=== PATIENT | female | born 1940 | race Caucasian/White ===

== ENCOUNTER → 2016-06-02 | Outpatient (CLI) | payer BC ==
[~2016-06-02] MED LIST: CHOL100026 PO; CRAN200C PO; CYAN100020 PO; DONE1TAB25 PO; FURO-85 PO; IPRA1AER2 INH; LEVO88TA PO; LISI-729 PO; METO50TA7 PO; MTR500 PO; POTA1TAB PO; SIMV20TA2 PO; SYMIN160 INH; TIOTCAP INH; WARF-283 PO
--- NOTE | 2016-06-02 11:55 | DIAGNOSTIC IMAGING REPORT ---
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 COMPARISON STUDY: Chest CT scans dated 11/24/2015 and 12/27/2012. TECHNIQUE: CT scan of the thorax was performed from the thoracic inlet to the upper abdomen. Images are reviewed in the axial, sagittal, and coronal planes. IV contrast was not administered for this examination. CT DOSE: 695.89 mGycm FINDINGS: Thyroid: Imaged portions of the thyroid gland are normal in size and attenuation. Thoracic aorta: There is atherosclerotic calcification of the thoracic aorta, which is normal in caliber and demonstrates standard 3-vessel arch anatomy. Heart: The heart is top normal in size and without pericardial effusion. There is lipomatous hypertrophy of the interatrial septum. The coronary arteries and mitral annulus are calcified. The pulmonary trunk is dilated, measuring up to 3.3 cm in diameter. This is greater in caliber than the adjacent thoracic aorta and suggests pulmonary artery hypertension. Lungs and pleural spaces: There is emphysema. There are postoperative changes from right lower lobe resection, with volume loss in the right lung and compensatory hyperinflation of the left lung. No airspace consolidation is identified. There is no pleural effusion. There are scattered calcified granulomas. There are scattered (approximate 5) small pulmonary nodules seen throughout both lungs. The largest is at the left lung base and measures 4 mm is seen on axial image #220. These are likely unchanged from the 2013 examination. No new pulmonary nodules are clearly identified. The trachea and central airways our clear. Mediastinum: There is no mediastinal lymphadenopathy. Thea: Not well assessed without IV contrast. Axillae: There is no axillary lymphadenopathy. Upper abdomen: A small hiatal hernia is noted. Cholecystectomy clips are observed. There is mild central intrahepatic biliary ductal dilatation. A subcentimeter hypodensity in the right lobe of the liver on image #248 likely represents a cyst but is too small for definitive characterization. This is been present dating back to 2013. Renovascular calcifications are noted in the left upper pole. Skeletal structures: The skeletal structures are osteopenic. No lytic or blastic bony lesions are seen. There are healed right-sided rib fractures. IMPRESSION: 1. Emphysema and postoperative changes from right lower lobe resection as above. 2. There is no evidence of intrathoracic metastatic disease. 3. Scattered pulmonary nodules measuring up to 4 mm are likely unchanged dating back to 2013 and of low suspicion. Attention at follow-up is recommended. 4. There is no airspace consolidation or pleural effusion. 5. Additional changes as above. Electronically signed by: Hugh Zimmer M.D. 06/02/2016 11:54 AM Dictated Date/Time: 06/02/2016 11:47 AM
== END | disposition home or self-care (01) ==
LOC: C.CTS 10:38
PROVIDERS: ATTEND Internal Medicine Hematology
DX: C34.31 Malignant neoplasm of lower lobe, right bronchus or lung (principal); J43.9 Emphysema, unspecified; R91.8 Other nonspecific abnormal finding of lung field; Z90.2 Acquired absence of lung [part of]

== ENCOUNTER → 2016-06-09 | Outpatient (CLI) | payer BC ==
[2016-06-09 11:46] LABS: BLOOD UREA NITROGEN 15 mg/dl (7-18)
== END | disposition home or self-care (01) ==
LOC: C.LAB1850 10:12
PROVIDERS: ATTEND Psychiatry & Neurology Psychiatry
DX: Z79.899 Other long term (current) drug therapy (principal); I87.2 Venous insufficiency (chronic) (peripheral)

== ENCOUNTER → 2016-06-28 | Outpatient (CLI) | payer BC | END | disposition home or self-care (01) | LOC: C.LABSPEC 16:40 | PROVIDERS: ATTEND Nurse Practitioner Family | DX: N39.0 Urinary tract infection, site not specified (principal) ==

== ENCOUNTER → 2016-08-04 | Outpatient (CLI) | payer BC ==
[2016-08-04 10:06] LABS: BASO % 0.7 %; BASO ABS # 0.05 K/uL (0-0.2); COMPLETE YES; EOS % 1.6 %; HEMATOCRIT 37.9 % (37-47); IG% 0.1 %; LYMPH % 29.8 %; LYMPH ABS # 2.29 K/uL (1.2-3.4); MEAN CELL VOLUME 93.3 fL (80-100); MEAN CORPUSCULAR HEMOGLOBIN 30.3 pg (25-34); MEAN CORPUSCULAR HGB CONC 32.5 g/dl (32-36); MEAN PLATELET VOLUME 11.4 fL (7.4-10.4); MONO % 7.7 %; NEUT % 60.1 %; PLATELET COUNT 222 K/uL (130-400); RED BLOOD COUNT 4.06 M/uL (4.2-5.4); WHITE BLOOD COUNT 7.69 K/uL (4.8-10.8)
[2016-08-04 10:45] LABS: ALT/SGPT 27 U/L (12-78); AST/SGOT 28 U/L (15-37); BLOOD UREA NITROGEN 12 mg/dl (7-18); BUN/CREATININE RATIO 9.7 (10-20); CALCIUM 9.1 mg/dl (8.5-10.1); CARBON DIOXIDE 30 mmol/L (21-32); CHLORIDE 105 mmol/L (98-107); GLUCOSE 108 mg/dl (70-99); POTASSIUM 3.7 mmol/L (3.5-5.1); SODIUM 141 mmol/L (136-145)
[2016-08-04 10:55] LABS: RATIO 56.4 mcg/mg (0-30.0)
[2016-08-04 10:56] LABS: ALB/GLOB RATIO 0.8 (0.9-2); ALKALINE PHOSPHATASE 101 U/L (45-117); CHOLESTEROL 129 mg/dl (0-200); CHOLESTEROL/HDL RATIO 2.4; HDL CHOLESTEROL 54 mg/dl; LDL CHOLESTEROL CALCULATED 35 mg/dl; TRIGLYCERIDES 198 mg/dl (0-150); VERY LOW DENSITY LIPOPROT CALC 40 mg/dl
[2016-08-04 11:23] LABS: ESTIMATED AVERAGE GLUCOSE 128 mg/dl; HA1C FLAG Normal (Normal)
== END | disposition home or self-care (01) ==
LOC: C.LAB1850 08:54
PROVIDERS: ATTEND Internal Medicine
DX: I10 Essential (primary) hypertension (principal); D64.9 Anemia, unspecified; E78.00 Pure hypercholesterolemia, unspecified; E03.9 Hypothyroidism, unspecified; E55.9 Vitamin D deficiency, unspecified; R73.09 Other abnormal glucose; I87.2 Venous insufficiency (chronic) (peripheral)

== ENCOUNTER → 2016-10-26 | Outpatient (CLI) | payer BC ==
--- NOTE | 2016-10-26 13:15 | DIAGNOSTIC IMAGING REPORT ---
(CHEST) THORAX WITHOUT HISTORY:77 [id number] Adenocarcinoma of lungC34.30 Malignant neoplasm of lower. History of prior right lower lobectomy. COMPARISON: Chest CT 06/02/2016, PET CT 11/27/2014, 01/10/2013. TECHNIQUE: Multiple axial CT images of the chest were obtained without IV contrast. FINDINGS: Thyroid is noted within the anterior mediastinum and is enlarged patible with thyroid goiter. No dominant nodule identified. No pathologic adenopathy of the chest identified. Heart is normal in size with coronary arterial calcifications. There is moderate atherosclerotic plaquing of the aorta and its branches. Moderate upper lobe predominant centrilobular emphysematous changes are present. Prior right lower lobectomy. There are several scattered noncalcified pulmonary nodules throughout the bilateral lungs in a multilobar distribution, largest of which measures 5 mm within the left lower lobe seen on image 48 of the axial series. The central airways are patent. Most of these appear stable dating back to 2012, however the 5 mm noncalcified pulmonary nodule as discussed appears unchanged dating back to 07/09/2015. Prior cholecystectomy. Soft tissues are unremarkable. No suspicious lytic or blastic bony lesions are seen. IMPRESSION: 1. Evidence of prior right lower lobectomy without evidence of local disease recurrence or metastasis. No pathologic appearing adenopathy. 2. Upper lobe predominant emphysema. 3. Scattered noncalcified pulmonary nodules are again seen, largest of which measures 5 mm within the left lower lobe, stable from 07/09/2015. Attention at follow-up recommended. Please refer to below summary of Fleischner criteria recommendations for follow-up of incidental CT nodules (Jay Umana, Guidelines for management of small pulmonary nodules detected on CT scans: A statement from the Fleischner Society, Radiology 237: [phone].) SOLID NODULES Solitary nodule size: <6 mm * Low risk patients: no follow-up needed * high risk patients: optional CT at 12 months Solitary nodule size: 6-8 mm * Low risk patients: follow-up at 6-12 months, then consider further follow-up at 18-24 months * high risk patients: initial follow-up CT at 6-12 months and then at 18-24 months if no change Solitary nodule size: >8 mm * either low or high risk patients - consider follow-up CT at 3 months, and/or CT-PET, and/or biopsy Multiple nodules size: <6 mm * Low risk patients: no routine follow-up * high risk patients: optional CT at 12 months Multiple nodules size: 6-8 mm * Low risk patients: follow-up at 3-6 months, then consider further follow-up at 18-24 months * high risk patients: follow-up at 3-6 months, then at 18-24 months if no change Multiple nodules size: >8 mm * Low risk patients: follow-up at 3-6 months, then consider further follow-up at 18-24 months * high risk patients: follow-up at 3-6 months, then at 18-24 months if no change Note: newly detected indeterminate nodule in persons 35 years of age or older. * Low risk patients: minimal or absent history of smoking and/or other known risk factors * high risk patients: history of smoking or of other known risk factors (e.g. first degree relative with lung cancer, or exposure to asbestos, radon, uranium) * if a nodule up to 8 mm is partly solid or is ground glass further follow-up is required after 24 months to exclude possible slow growing adenocarcinoma ([place]) SUBSOLID NODULES Solitary pure ground-glass nodule * nodule size <6 mm - no CT follow-up required * nodule size >=6 mm - follow-up CT at 6-12 months, then every 2 years until 5 years Solitary part-solid nodule * nodule size <6 mm - no CT follow-up required * nodule size >=6 mm - follow-up CT at 3-6 months. If unchanged, and solid component remains <6 mm, then annual follow-up for 5 years Multiple subsolid nodules * nodule size <6 mm - follow-up CT at 3-6 months, consider further follow-up at 2 and 4 years if stable * nodule size >=6 mm - follow-up CT at 3-6 months, subsequent management based on the most suspicious nodule(s) The above report was generated using voice recognition software. It may contain grammatical, syntax or spelling errors. Electronically signed by: Sylvester Michael M.D. 10/26/2016 1:13 PM Dictated Date/Time: 10/26/2016 1:05 PM
== END | disposition home or self-care (01) ==
LOC: C.CTS 10:31
PROVIDERS: ATTEND Internal Medicine Pulmonary Disease
DX: C34.30 Malignant neoplasm of lower lobe, unspecified bronchus or lung (principal); J43.9 Emphysema, unspecified; R91.8 Other nonspecific abnormal finding of lung field; Z90.2 Acquired absence of lung [part of]

== ENCOUNTER → 2016-11-15 | Outpatient (CLI) | payer BC ==
--- NOTE | 2016-11-15 14:05 | MAMMOGRAPHY REPORT ---
BILATERAL DIGITAL SCREENING MAMMOGRAM WITH CAD: 11/15/2016 CLINICAL HISTORY: Routine screening. Patient has no complaints. TECHNIQUE: Bilateral CC, MLO and repeat right MLO views were obtained. Current study was also evalua justin with a Computer Aided Detection (CAD) system. COMPARISON: Comparison is made to exams dated: 11/13/2015 mammogram, 11/11/2014 mammogram, 10/16/2013 ma mmogram, 03/07/2012 mammogram - [facility], 07/28/2007, and 07/28/2007. BREAST COMPOSITION: There are scattered areas of fibroglandular density in both breasts. FINDINGS: There are scattered round and punctate microcalcifications in both breasts, stable compared to prior mammograms. Stable asymmetry in the lateral left breast. No new suspicious mass, architec tural distortion or cluster of microcalcifications is seen. IMPRESSION: ACR BI-RADS CATEGORY 1: NEGATIVE There is no mammographic evidence of malignancy. A 1 year screening mammogram is recommended. The pa tient will receive written notification of the results. Approximately 10% of breast cancers are not detected with mammography. A negative mammographic report should not delay biopsy if a clinically suggestive mass is present. Gabriella Varela M.D. ay/:11/15/2016 10:38:38 Coal Getter: Tiana BARRY)(Stu), [facility] letter sent: Normal 1/2 BI-RADS Code: ACR BI-RADS Category 1: Negative
== END | disposition home or self-care (01) ==
LOC: C.MAMM 09:52
PROVIDERS: ATTEND Internal Medicine
DX: Z12.31 Encounter for screening mammogram for malignant neoplasm of breast (principal)

== ENCOUNTER → 2017-01-19 | Outpatient (CLI) | payer BC ==
--- NOTE | 2017-01-19 12:46 | DIAGNOSTIC IMAGING REPORT ---
RIGHT KNEE 2 VIEWS, LEFT KNEE 2 VIEWS HISTORY: BILATERAL KNEE PAIN COMPARISON: None. FINDINGS: There is no fracture or dislocation. No soft tissue swelling. No significant knee effusions. Mild vascular calcifications. Severe cartilage space narrowing within the medial compartments of the bilateral knees. Mild to moderate osteoarthritis within the bilateral patellofemoral compartments. There is mild cartilage space narrowing and marginal osteophytes within the lateral compartment. No radiopaque foreign bodies. IMPRESSION: Bilateral tricompartmental osteoarthritis most severe within the medial compartments. Electronically signed by: Dada Valiente M.D. 01/19/2017 12:45 PM Dictated Date/Time: 01/19/2017 12:43 PM
== END | disposition home or self-care (01) ==
LOC: C.RAD1850 11:39
PROVIDERS: ATTEND Internal Medicine
DX: M17.0 Bilateral primary osteoarthritis of knee (principal)

== ENCOUNTER → 2017-06-02 | Outpatient (CLI) | payer BC ==
[~2017-06-02] MED LIST changes: -METO50TA7 PO; +METO50TA8 PO
--- NOTE | 2017-06-02 11:36 | DIAGNOSTIC IMAGING REPORT ---
CT OF THE CHEST WITHOUT IV CONTRAST CLINICAL HISTORY: Right lower lobe adenocarcinoma status post lobectomy. COMPARISON STUDY: Chest CT October 26, 2016 and December 27, 2012 and PET/CT November 27, 2014. CT DOSE: 775.73 mGy.cm TECHNIQUE: Axial images of the chest were obtained without IV contrast. Images were reviewed in the axial, sagittal, and coronal planes. IV contrast was not administered for this examination. A dose lowering technique was utilized adhering to the principles of ALARA. FINDINGS: No enlarged axillary, mediastinal or hilar lymph nodes are present. There is moderate coronary artery calcification. Heart is mildly enlarged. There is no pericardial effusion. There is fatty hypertrophy of the interatrial septum. No pneumothorax or pleural effusion is noted. There are stable postoperative findings consistent with a right lower lobectomy. Multiple pulmonary nodules are unchanged from CT of December 27, 2012. These are benign given stability. No new nodules are identified. There is moderate emphysema. No suspicious osseous lesion is present. A few subcentimeter hepatic lesions are unchanged and likely reflect cysts. The gallbladder is surgically absent. There is a splenule. Infrarenal abdominal aorta measures 3.2 cm. This is unchanged. IMPRESSION: 1. No evidence of recurrent malignancy within the chest status post right lower lobectomy. 2. Moderate coronary artery calcification. Mild cardiomegaly. 3. Moderate emphysema. Electronically signed by: Scott Obregon M.D. 06/02/2017 11:34 AM Dictated Date/Time: 06/02/2017 11:23 AM
== END | disposition home or self-care (01) ==
LOC: C.CTS 10:31
PROVIDERS: ATTEND Internal Medicine Hematology
DX: J43.9 Emphysema, unspecified (principal); I25.10 Atherosclerotic heart disease of native coronary artery without angina pectoris; Z90.2 Acquired absence of lung [part of]

== ENCOUNTER → 2017-07-28 | Outpatient (CLI) | payer BC ==
[2017-07-28 12:29] LABS: BASO % 0.6 %; BASO ABS # 0.05 K/uL (0-0.2); EOS % 1.8 %; EOS ABS # 0.16 K/uL (0-0.5); HEMATOCRIT 40.4 % (37-47); HEMOGLOBIN 13.1 g/dL (12.0-16.0); IG# 0.01 K/uL (0.00-0.02); LYMPH % 29.1 %; LYMPH ABS # 2.56 K/uL (1.2-3.4); MEAN CELL VOLUME 92.2 fL (80-100); MEAN CORPUSCULAR HEMOGLOBIN 29.9 pg (25-34); MEAN CORPUSCULAR HGB CONC 32.4 g/dl (32-36); MEAN PLATELET VOLUME 11.3 fL (7.4-10.4); MONO % 5.9 %; MONO ABS # 0.52 K/uL (0.11-0.59); NEUT % 62.5 %; NEUT ABS # 5.49 K/uL (1.4-6.5); PLATELET COUNT 262 K/uL (130-400); RED CELL DISTRIBUTION WIDTH CV 13.7 % (11.5-14.5); RED CELL DISTRIBUTION WIDTH SD 46.6 fL (36.4-46.3); WHITE BLOOD COUNT 8.79 K/uL (4.8-10.8)
[2017-07-28 12:42] LABS: ALBUMIN 3.5 gm/dl (3.4-5.0); ALT/SGPT 31 U/L (12-78); AST/SGOT 29 U/L (15-37); BLOOD UREA NITROGEN 13 mg/dl (7-18); CALCIUM 9.4 mg/dl (8.5-10.1); CARBON DIOXIDE 24 mmol/L (21-32); CREATININE 1.36 mg/dl (0.60-1.20); GLUCOSE 112 mg/dl (70-99); POTASSIUM 3.9 mmol/L (3.5-5.1); SODIUM 136 mmol/L (136-145)
[2017-07-28 12:46] LABS: HEMOGLOBIN A1C 6.1 % (4.5-5.6)
[2017-07-28 12:53] LABS: ALKALINE PHOSPHATASE 97 U/L (45-117); CHOLESTEROL 182 mg/dl (0-200); LDL CHOLESTEROL CALCULATED 88 mg/dl; TOTAL PROTEIN 8.2 gm/dl (6.4-8.2)
[2017-07-28 14:07] LABS: CREATININE RANDOM URINE 37.3 mg/dl
== END | disposition home or self-care (01) ==
LOC: C.LAB 09:46
PROVIDERS: ATTEND Internal Medicine
DX: E78.00 Pure hypercholesterolemia, unspecified (principal); I10 Essential (primary) hypertension; E03.9 Hypothyroidism, unspecified; E55.9 Vitamin D deficiency, unspecified; R41.89 Other symptoms and signs involving cognitive functions and awareness; R73.09 Other abnormal glucose; D64.9 Anemia, unspecified; N39.0 Urinary tract infection, site not specified

== ENCOUNTER → 2017-08-18 | Outpatient (CLI) | payer BC ==
[2017-08-18 10:06] LABS: BASO % 1.1 %; BASO ABS # 0.08 K/uL (0-0.2); EOS % 2.1 %; EOS ABS # 0.15 K/uL (0-0.5); HEMATOCRIT 38.5 % (37-47); IG# 0.01 K/uL (0.00-0.02); LYMPH % 29.5 %; LYMPH ABS # 2.07 K/uL (1.2-3.4); MEAN CELL VOLUME 91.2 fL (80-100); MEAN CORPUSCULAR HEMOGLOBIN 30.8 pg (25-34); MEAN CORPUSCULAR HGB CONC 33.8 g/dl (32-36); MEAN PLATELET VOLUME 11.1 fL (7.4-10.4); MONO % 8.3 %; MONO ABS # 0.58 K/uL (0.11-0.59); NEUT % 58.9 %; NEUT ABS # 4.13 K/uL (1.4-6.5); PLATELET COUNT 241 K/uL (130-400); RED CELL DISTRIBUTION WIDTH CV 13.6 % (11.5-14.5); RED CELL DISTRIBUTION WIDTH SD 45.3 fL (36.4-46.3); WHITE BLOOD COUNT 7.02 K/uL (4.8-10.8)
[2017-08-18 10:30] LABS: ALBUMIN 3.4 gm/dl (3.4-5.0); ALT/SGPT 26 U/L (12-78); AST/SGOT 23 U/L (15-37); BLOOD UREA NITROGEN 18 mg/dl (7-18); CALCIUM 9.2 mg/dl (8.5-10.1); CARBON DIOXIDE 28 mmol/L (21-32); CREATININE 1.28 mg/dl (0.60-1.20); GLUCOSE 103 mg/dl (70-99); SODIUM 138 mmol/L (136-145)
[2017-08-18 10:32] LABS: HEMOGLOBIN A1C 5.9 % (4.5-5.6)
[2017-08-18 10:41] LABS: ALKALINE PHOSPHATASE 98 U/L (45-117); TOTAL PROTEIN 7.7 gm/dl (6.4-8.2)
--- NOTE | 2017-08-26 06:07 | CODING QUERY NO DIAGNOSIS ---
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 Please assist us with providing a diagnosis/symptom for the test(s) below: A diagnosis/symptom was not documented on your Order. A valid diagnosis/symptom is required to bill all insurances. Please remember that we are unable to code a diagnosis of rule out, probable, possible, questionable, or suspected. Tests that require a diagnosis: * LITHIUM LEVEL DIAGNOSIS: * CBC WITH DIFF DIAGNOSIS: * CMP DIAGNOSIS: * LFT DIAGNOSIS: * UA DIAGNOSIS: * TSH DIAGNOSIS: * B12 FOLATE DIAGNOSIS: * HBA1C DIAGNOSIS: * DOS: 08/18/17 Provider Signature: Date: Thank you Jing Alexandra Health Information Management Once completed, please kindly fax back to [phone] For questions please call [phone]
== END | disposition home or self-care (01) ==
LOC: C.LAB1850 09:24
PROVIDERS: ATTEND Psychiatry & Neurology Psychiatry
DX: F31.12 Bipolar disorder, current episode manic without psychotic features, moderate (principal); F02.80 Dementia in other diseases classified elsewhere, unspecified severity, without behavioral disturbance, psychotic disturbance, mood disturbance, and anxiety

== ENCOUNTER → 2017-11-25 | Outpatient (CLI) | payer BC ==
--- NOTE | 2017-11-25 09:11 | DIAGNOSTIC IMAGING REPORT ---
(CHEST) THORAX WITHOUT CT DOSE: 643.00 mGy.cm HISTORY: Neoplasm postoperative evaluation TECHNIQUE: Multiaxial CT images of the chest were performed without contrast. A dose lowering technique was utilized adhering to the principles of ALARA. COMPARISON: 06/02/2017 FINDINGS: Postoperative changes consistent with a right lower lobectomy unchanged. Small nodule left lung base unaltered. Lungs otherwise appear clear. No significant mediastinal or hilar adenopathy. Prior cholecystectomy. IMPRESSION: Stable, unchanged CT of the chest compared to the prior exam. The above report was generated using voice recognition software. It may contain grammatical, syntax or spelling errors. Electronically signed by: Wagner Quinones M.D. 11/25/2017 9:10 AM Dictated Date/Time: 11/25/2017 9:06 AM
== END | disposition home or self-care (01) ==
LOC: C.CTS 08:52
PROVIDERS: ATTEND Internal Medicine Hematology
DX: C34.31 Malignant neoplasm of lower lobe, right bronchus or lung (principal)

== ENCOUNTER 2018-07-05 06:16 | Inpatient (IN) ==
--- NOTE | 2018-05-22 09:16 | PAT Medication Instructions ---
Medication Instructions Date of Service May 22, 2018 Home Medications cholecalciferol (vitamin D3) 2,000 unit PO QAM donepezil 5 mg PO QAM levothyroxine [Synthroid] 88 mcg PO QAM lisinopril 5 mg PO QAM lithium carbonate 300 mg PO QHS methenamine hippurate 1 g PO QPM metoprolol succinate 50 mg PO QAM potassium chloride 20 meq PO QAM simvastatin 20 mg PO QAM warfarin 4 mg PO HS Continue as directed warfarin 4 mg PO HS DO NOT take the morning of surgery potassium chloride 20 meq PO QAM lisinopril 5 mg PO QAM cholecalciferol (vitamin D3) 2,000 unit PO QAM Take morning of surgery With a small sip of water, OTHERWISE NOTHING TO EAT OR DRINK AFTER MIDNIGHT: simvastatin 20 mg PO QAM metoprolol succinate 50 mg PO QAM levothyroxine [Synthroid] 88 mcg PO QAM donepezil 5 mg PO QAM Take evening before surgery methenamine hippurate 1 g PO QPM lithium carbonate 300 mg PO QHS Other Notes If you have any questions please call us at [phone] or [phone] or [phone] or [phone]
--- NOTE | 2018-05-22 12:27 | Anesthesiology Consultation ---
Date of Service May 22, 2018 Assessment & Plan (1) Encounter for pre-operative examination: Chart Review Chart Review: Pending: Refer to Additional Notes / Consult section and Patient seen in Pre Admission Testing Consults Requested medical (Dr. Toribio (05/22)) Teaching & Discussion Pre-Anesthesia Teaching/Discussion Notes: Instructed NPO after midnight before surgery, except medications with 15 cc of water. Medication instructions provided according to the PAT guidelines. History Surgery Operation Date: 06/14/18 10:40 Proposed Procedures p Left Total Knee Arthroplasty - Mohinder Boyle MD Height/Weight Height: 5 ft 4 in Weight: 99.2 kg Allergies Allergy/AdvReac Type Severity Reaction Status Date / Time Penicillins Allergy Severe THROAT Verified 05/19/18 10:35 SWELLING Sulfa (Sulfonamide Allergy Severe "PAINS IN Verified 05/19/18 10:35 Antibiotics) MY HEART" Medications Home Medications Medication Instructions Recorded Confirmed Last Taken cholecalciferol (vitamin D3) 2,000 unit PO QAM 04/07/18 05/19/18 Unknown [Vitamin D3] donepezil 5 mg PO QAM 04/07/18 05/19/18 Unknown levothyroxine [Synthroid] 88 mcg PO QAM 04/07/18 05/19/18 Unknown lisinopril 5 mg PO QAM 04/07/18 05/19/18 Unknown lithium carbonate 300 mg PO QAM 04/07/18 05/19/18 Unknown methenamine hippurate 1 g PO QPM 04/07/18 05/19/18 Unknown metoprolol succinate 50 mg PO QAM 04/07/18 05/19/18 Unknown potassium chloride 20 meq PO QAM 04/07/18 05/19/18 Unknown simvastatin 20 mg PO QAM 04/07/18 05/19/18 Unknown warfarin 4 mg PO HS 04/07/18 05/19/18 Unknown Past Medical History Medical History Bipolar disorder (Chronic 11/11/12) Non-small cell carcinoma of lung (Acute) TUMOR EXCISION, NO CHEMO REQUIRED [facility] Atrial flutter (Acute) HX OF A-FLUTTER. PT HAD CARDIOVERSION [address] JACOBO. REMAINS STABLE. Bradycardia (Acute) C. difficile colitis (Acute) PT UNSURE OF EXACT DATE. DX AND TREATED AT [facility]. NO COMPLICATIONS SINCE Hypothyroidism (Acute) Sepsis secondary to UTI (Acute) MAR 2018, [facility]. RESOLVED Asthma MILD Chronic kidney disease STAGE 3 History of DVT (deep vein thrombosis) 1ST ONE 40 YEARS AGO AFTER CHILDBIRTH, 2ND DVT FOLLOWING EXTENDED BED REST APPROX 10 YEARS AGO Past Surgical History Surgical History H/O varicose vein stripping BILATERAL LOWER EXTREMITIES History of cardioversion History of lung surgery TUMOR EXCISION, NO CHEMO REQUIRED. PT UNSURE OF DATE OF TYPE OF SURGERY History of partial hysterectomy History of phacoemulsification of cataract of both eyes with intraocular lens implantation Hx of cholecystectomy Past Anesthesia History No Hx of Anesthesia Complications and No Family Hx of Anesthesia Complications History of PONV No Motion Sickness Screening History of Motion Sickness: No Social History Smoking Status: Former smoker tobacco type: cigarettes Smoking cigarettes per day: QUIT 20 YEARS AGO Do You Dip or Chew Tobacco: No Hx Alcohol Use: No Hx Substance Use: No substance use type: does not use Exercise / Class Metabolic Activity III < 4 Walking/Shop/Light housework (Can barely climb FOS. Denies CP. Occasional SOB, but blames on weight.) Review of Systems Patient denies chest pain, reflux, cough, wheezing, palpitations. +SOB/MONTES (blames on weight) +joint pain (knee) Physical Exam Vital Signs BP: 120/70 P: 63 R: 14 T: 98.2 SPO2: 96% on RA Constitutional + obese ENMT Thyromental Distance: < 3.5 Finger Breadths (3) Mallampati Class: II Neck normal visual inspection, trachea midline and + thick neck Respiratory normal respiratory effort Auscultation: lungs clear to auscultation bilaterally Cardiovascular Rate/Rhythm: regular rate and regular rhythm Heart Sounds: no murmur Vessels: no carotid bruit Neurologic moves all extremities Psychiatric Orientation: alert and oriented x 3 Testing Electrocardiogram Date: 05/22/18 Findings: + NSR @ (69) and + pertinent finding (Ectopic atrial pacemaker.) Chest X-Ray Date: 05/22/18 Findings: + NAD Laboratory Results 05/22/18 13:58 Blood Type O Positive 05/22/18 13:58 Antibody Screen NEGATIVE 05/22/18 13:58 PT 16.9 Seconds (9.0-12.0) H 05/22/18 13:58 INR 1.7 (0.9-1.1) H 05/22/18 13:58 APTT 30.6 Seconds (21.0-31.0) 05/22/18 13:58 Urine Color Yellow 05/22/18 13:58 Urine Appearance Clear (Clear) 05/22/18 13:58 Urine pH 5.5 (4.5-7.5) 05/22/18 13:58 Ur Specific [place] 1.010 (1.000-1.030) 05/22/18 13:58 Urine Protein Negative (Negative) 05/22/18 13:58 Urine Glucose (UA) Negative (Negative) 05/22/18 13:58 Urine Ketones Negative (Negative) 05/22/18 13:58 Urine Nitrite Negative (Negative) 05/22/18 13:58 Ur Leukocyte Esterase Negative (Negative) 05/22/18 13:58 Urine WBC (Auto) 1-5 /hpf (0-5) 05/22/18 13:58 Urine RBC (Auto) 0-4 /hpf (0-4) 05/22/18 13:58 U Hyaline Cast (Auto) 1-5 /lpf (0-5) 05/22/18 13:58 U Epithel Cells (Auto) >30 /lpf (0-5) H 05/22/18 13:58 Urine Bacteria (Auto) 1+ (Negative) H 05/22/18 13:58
--- NOTE | 2018-05-22 14:25 | XRay Report ---
XR chest Pre-admission PA/Lat CLINICAL HISTORY: pat preoperative evaluation COMPARISON STUDY: 04/07/2018 FINDINGS: The bones soft tissues and hemidiaphragms are normal. The cardiomediastinal silhouette is n ormal. The lungs are clear. The pulmonary vasculature is normal. IMPRESSION: Negative chest. The above report was generated using voice recognition software. It may contain grammatical, syntax or spelling errors. Electronically signed by: Wagner Quinones M.D. 05/22/2018 2:24 PM
[2018-05-22 14:55] LABS: Basophils # (auto) 0.07 K/uL (0-0.2); Basophils % (auto) 0.8 %; Eosinophils # (auto) 0.13 K/uL (0-0.5); Eosinophils % (auto) 1.5 %; Hematocrit (blood only) 39.7 % (37-47); Hemoglobin 13.1 g/dL (12.0-16.0); Immature Granulocytes # (auto) 0.01 K/uL (0.00-0.02); Immature Granulocytes % (auto) 0.1 %; Lymphocytes # (auto) 2.63 K/uL (1.2-3.4); Lymphocytes % (auto) 30.5 %; Mean Corpuscular Volume 94.5 fL (80-100); Mean Platelet Volume 11.3 fL (7.4-10.4); Monocytes # (auto) 0.57 K/uL (0.11-0.59); Monocytes % (auto) 6.6 %; Neutrophils % (auto) 60.5 %; Platelet Count 237 K/uL (130-400); RDW Coefficient of Variation 13.5 % (11.5-14.5); RDW Standard Deviation 46.5 fL (36.4-46.3); White Blood Count 8.61 K/uL (4.8-10.8)
[2018-05-22 14:58] LABS: Appearance Urine Clear (Clear); Bacteria Urine Automated 1+ (Negative); Bilirubin Urine Negative (Negative); Blood Urine Trace (Negative); Color Urine Yellow; Epithelial Cell Urine Auto >30 /lpf (0-5); Glucose Urine UA Negative (Negative); Ketones Urine Negative (Negative); Leukocyte Esterase Urine Negative (Negative); Nitrite Urine Negative (Negative); Protein Urine Negative (Negative); RBC Urine Automated 0-4 /hpf (0-4); Urobilinogen Urine Negative (Negative); pH Urine 5.5 (4.5-7.5)
[2018-05-22 15:03] LABS: INR 1.7 (0.9-1.1); Partial Thromboplastin Ratio 1.2; Partial Thromboplastin Time 30.6 Seconds (21.0-31.0); Prothrombin Time 16.9 Seconds (9.0-12.0)
--- NOTE | 2018-05-24 15:10 | History and Physical Report ---
DATE OF ADMISSION: 06/14/2018 DATE OF SURGERY: 06/14/2018. CHIEF COMPLAINT: Left knee pain. HISTORY OF PRESENT ILLNESS: This 78-year-old white female presents with her son and daughter for evaluation of her left knee. She has a longstanding history of left knee pain. Symptoms have been ongoing since late 2015. Pain has become worse with time. It is affecting her ADLs. It is worse with weightbearing. She has tried cortisone injections, activity modification, and viscosupplementation injections without lasting improvement. She is ambulatory with a cane. No numbness or tingling. X-rays have been obtained. She has a history of DVT in both lower extremities, 1 after being bedridden with meningitis and the other after childbirth. She elects to proceed with left total knee arthroplasty in hopes of alleviating her pain. PAST MEDICAL HISTORY: Significant for hypertension, elevated cholesterol, atrial fibrillation, history of DVT x2, sleep apnea, lung cancer, obesity, and history of osteoarthritis. Also, history of basal cell cancer and seborrheic keratosis. PREVIOUS SURGERIES: Right lung lower lobectomy 2013, partial hysterectomy, varicose vein stripping, eye surgery, cholecystectomy. SOCIAL HISTORY: The patient is retired. No tobacco use, no ETOH use. . She takes care of her chronically ill spouse. FAMILY HISTORY: Significant for colon cancer and lung cancer. ALLERGIES: KNOWN ALLERGY TO SULFA DRUGS. CURRENT MEDICATIONS: Vitamin D3 daily, donepezil 5 mg p.o. daily, Breo Ellipta 100 mcg/25 mcg inhaled daily, furosemide 20 mg p.o. daily, Synthroid 88 mcg p.o. daily, lisinopril unknown dose daily, lithium 300 mg p.o. daily, methenamine 1 gram p.o. b.i.d., metoprolol 50 mg p.o. daily, potassium unknown dose daily, simvastatin 20 mg p.o. at bedtime, Coumadin 4 mg p.o. daily. REVIEW OF SYSTEMS: A total of 10 systems were reviewed and are significant only for above stated conditions. PHYSICAL EXAMINATION: GENERAL: Well-developed, well-nourished elderly white female in no acute distress. Sitting in a chair. Alert and oriented. SKIN: Warm and dry with good turgor. No rashes or lesions. No ecchymosis or erythema. HEENT: Normocephalic, atraumatic. Eyes: PERRLA, EOMI. Nares patent bilaterally without turbinate enlargement. Oropharynx without erythema or exudate. No lesions noted. Uvula midline. Oral mucosa moist. Upper and lower denture plates are noted. HEART: Regular rate and rhythm with occasional extra beat. No gallops or rubs. No murmur. LUNGS: Clear to auscultation bilaterally. No crackles, rhonchi or wheezing. Good air movement. ABDOMEN: Obese. Bowel sounds present x4, soft, nontender. No organomegaly. No masses. MUSCULOSKELETAL: Left knee evaluation reveals no intraarticular effusion. She does have crepitus palpable with motion. Full terminal extension. Flexion to greater than 90 degrees. Strength is 5/5 with fair quad tone. Stable collateral ligaments. No defect in the patellar tendon or quadriceps tendon. There is focal discomfort with palpation over the medial and lateral joint lines, medial being worst. Ambulatory with an antalgic gait using her cane. NEUROLOGIC: Cranial nerves II through XII are intact. Gross sensation is intact across both lower extremities by soft touch. Peripheral pulses are 2+. DATA: Radiographic imaging previously obtained shows end-stage DJD of the left knee that is worst in the medial compartment. Joint space narrowing, periarticular osteophytes, and subchondral sclerosis are all present. There is also pseudosubluxation of the tibia. IMPRESSION: Left knee end-stage degenerative joint disease. PLAN: Postoperative prescriptions for Percocet will be provided at discharge from the hospital. She is already on Coumadin. She will need bridging. She will speak with her PCP and management services technician regarding this. Preoperative lab work, EKG, and chest x-ray have been ordered. She already has a cane and walker.
--- NOTE | 2018-06-30 14:36 | History and Physical Report ---
DATE OF ADMISSION: 07/05/2018 DATE OF SURGERY: 07/05/2018. CHIEF COMPLAINT: Left knee pain. HISTORY OF PRESENT ILLNESS: This 78-year-old white female presents with her son for evaluation of her left knee. She has known DJD of the left knee. She was previously scheduled for total knee arthroplasty on 06/14/2018, but had to be postponed due to cardiac clearance. This has been completed. She is able to proceed. She has a longstanding history of left knee pain. Symptoms have been ongoing since late 2015. It has become worse with time. Worse with weightbearing. Pain is affecting her ADLs. She has tried cortisone injections, activity modification, and viscosupplementation injections without lasting improvement. She is ambulatory with a cane. No numbness or tingling. Preoperative imaging has been obtained. 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 PAST MEDICAL HISTORY: Significant for hypertension, elevated cholesterol, atrial fibrillation, history of DVT x2, sleep apnea, lung cancer, obesity, history of osteoarthritis, history of basal cell skin cancer, and seborrheic keratosis. PREVIOUS SURGERIES: Right lower lobectomy in 2013, partial hysterectomy, varicose vein stripping, eye surgery, cholecystectomy. SOCIAL HISTORY: The patient is retired. No tobacco use, no ETOH use. . She takes care of her chronically ill spouse. FAMILY HISTORY: Significant for colon cancer and lung cancer. ALLERGIES: KNOWN ALLERGY TO SULFA DRUGS. CURRENT MEDICATIONS: Vitamin D3, donepezil 5 mg p.o. daily, Breo Ellipta 100 mcg/25 mcg inhaled daily, furosemide 20 mg p.o. daily, Synthroid 88 mcg p.o. daily, lisinopril unknown dose daily, lithium 300 mg p.o. daily, methenamine 1 gram p.o. b.i.d., metoprolol 50 mg p.o. daily, potassium unknown dose daily, simvastatin 20 mg p.o. at bedtime, Coumadin 4 mg daily. REVIEW OF SYSTEMS: A total of 10 systems were reviewed and are significant only for above-stated conditions. PHYSICAL EXAMINATION: GENERAL: Well-developed, well-nourished elderly white female, in no acute distress. Sitting in a chair. Alert and oriented. SKIN: Warm and dry with fair turgor. No rashes or lesions. No ecchymosis or erythema. HEENT: Normocephalic, atraumatic. Eyes PERRLA, EOMI. Nares patent bilaterally without turbinate enlargement. Oropharynx without erythema or exudate. No lesions noted. Uvula midline. Oral mucosa moist. Upper and lower denture plates are noted. HEART: RRR. No MGR. Occasional extra beat. LUNGS: Clear to auscultation bilaterally. No crackles, rhonchi or wheezing. Good air movement. ABDOMEN: Obese. Bowel sounds present x4, soft, nontender. No organomegaly. No masses. MUSCULOSKELETAL: Left knee evaluation reveals no intra-articular effusion. She does have crepitus palpable with motion. Full terminal extension. Flexion to greater than 90 degrees. Strength is 5/5 with fair quad tone. Stable collateral ligaments. No defect in the patellar tendon or quadriceps tendon. There is focal discomfort with palpation over the medial and lateral joint lines. Medial was worse. Ambulatory with an antalgic gait using her cane. NEUROLOGIC: Cranial nerves II through XII are intact. Gross sensation is intact across both lower extremities by soft touch. Peripheral pulses are 2+. DATA: Radiographic imaging previously obtained shows end-stage DJD of the left knee. Worst disease is in the medial compartment. Joint space narrowing, periarticular osteophytes, and subchondral sclerosis are present. She also has pseudosubluxation of the tibia. IMPRESSION: Left knee end-stage degenerative joint disease. PLAN: Postoperative prescription for Percocet will be provided at discharge from the hospital. She is already on Coumadin. She has discussed bridging with the Coumadin clinic and will use Lovenox preoperatively. 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 Stress test was completed on June 23 at [facility]. Preoperative lab work, EKG, and chest x-ray have been completed. She already has a cane and walker. MTDD
[~2018-07-05 06:16] MED LIST changes: +CEFAZOLIN 2000MG 2,000 MG/15 ML SYR IV SCH; -CHOL100026 PO; -CRAN200C PO; -CYAN100020 PO; -DONE1TAB25 PO; -FURO-85 PO; -IPRA1AER2 INH; -LEVO88TA PO; -LISI-729 PO; +LR 500ML BOLUS, THEN 15ML/HR IV SCH; +LR 60ML/HR IV SCH; -METO50TA8 PO; -MTR500 PO; -POTA1TAB PO; +ROPIVACAINE 0.5% HCL/PF 150 MG, BUPIVACAINE 0.5% MPF 30 ML, EPINEPHrine 0.15 MG, Ketoro... INFIL SCH; -SIMV20TA2 PO; -SYMIN160 INH; -TIOTCAP INH; +TRANEXAMIC ACID 1,000 MG x 1 **For Topical Use TOP SCH; -WARF-283 PO
[2018-07-05] MEDS ORDERED: BUPIVACAINE/EPINEPHRINE 0.5% MPF 1:200,000 30 ML VIAL ONE (06:34)
[2018-07-05] MEDS ORDERED: BUPIVACAINE 0.5 % 5 MG/1 ML PF 10ML VIAL ONE (06:34)
[2018-07-05] MEDS ORDERED: DEXAMETHASONE SOD INJ 4 MG/ML VIAL ONE (06:35)
--- NOTE | 2018-07-05 06:38 | History & Physical Bridge Note ---
Date of Service July 05, 2018 History & Physical Bridge Note I have examined the patient, reviewed the History & Physical and in the interval since the performance of the History & Physical I have noted the following changes of clinical significance: consent obtained.no changes noted
[2018-07-05 07:06] LABS: Partial Thromboplastin Ratio 0.9; Partial Thromboplastin Time 24.8 Seconds (21.0-31.0)
[2018-07-05] MEDS ORDERED: MIDAZOLAM HCL 1 MG/ML 2ML VIAL ONE (07:24)
[2018-07-05] MEDS ORDERED: fentaNYL citrate 100 MCG/2 ML VIAL ONE (07:24)
[2018-07-05] MEDS ORDERED: POVIDONE-IODINE OP SOLN 30 ML BTL ONE (08:38)
[2018-07-05] MEDS ORDERED: ORTHO JOINT ANESTHETIC ONE (08:38)
[2018-07-05] MEDS ORDERED: ePHEDrine sulfate 50 MG/ML AMP IV PRN (08:59)
[2018-07-05] MEDS ORDERED: fentaNYL citrate 100 MCG/2 ML VIAL IV PRN (08:59)
[2018-07-05] MEDS ORDERED: ATROPINE SULFATE 0.1 MG/ML 10ML SYR IV PRN (08:59)
[2018-07-05] MEDS ORDERED: ONDANSETRON INJ 2 MG/ML 2 ML VIAL IV PRN ×2 (08:59→11:42)
[2018-07-05] MEDS ORDERED: PROPOFOL IV EMULSION 10 MG/ML 20 ML VIAL IV ONE ×3 (09:13→09:58)
[2018-07-05] MEDS ORDERED: ONDANSETRON INJ 2 MG/ML 2 ML VIAL ONE (09:13)
[2018-07-05] MEDS ORDERED: LIDOCAINE HCL 2% 2 ML VIAL/AMP(20MG/ML) INFIL ONE (09:13)
[2018-07-05] MEDS ORDERED: ePHEDrine sulfate 50 MG/ML SYR ONE (09:15)
--- NOTE | 2018-07-05 10:27 | Post Operative Brief Note ---
Immediate Post Op Note v1 Date of Surgery July 05, 2018 Pre & Post Diagnosis Operation Date: 07/05/18 08:50 Pre-Op Diagnosis: Left Knee End-Stage Degenerative Joint Disease Post-Op Diagnosis: Left Knee End-Stage Degenerative Joint Disease Procedure Operation Date: 07/05/18 08:50 Actual Procedures p Left Total Knee Arthroplasty(Left) - Mohinder Boyle MD Surgeon Mohinder Boyle MD [facility] Estimated Blood Loss 75 Findings Consistent with Post-Op Diagnosis
--- NOTE | 2018-07-05 10:33 | Operative Report ---
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 She had tried conservative care measures including activity modification, oral pain medication, and injection therapy, without lasting improvement. She elected to proceed with surgical intervention after being educated about potential risks and outcomes. Preoperative imaging was obtained. Description of Procedure Patient was administered a spinal anesthetic and then taken to the operating room where she was given sedation. She was prepped and draped in the usual sterile fashion. Please see Dr. Boyle's operative report for specifics of the procedure. I was present for the entire case from initial patient positioning through final wound closure. Assistance was provided in tissue retraction, hemostasis, trial implant placement, final implant placement, and final wound closure. Patient was taken to the recovery room in satisfactory condition. I attest to the content of the Intraoperative Record and any orders documented therein. Any exceptions are noted below.
--- NOTE | 2018-07-05 10:50 | XRay Report ---
LEFT KNEE 2 VIEWS History: Left total knee arthroplasty. Degenerative arthritis. Postop. FINDINGS: The patient is status post a left total knee arthroplasty. The hardware is intact. No fract ure or dislocation. Skin rony are in place. IMPRESSION: Left total knee arthroplasty. No evidence for hardware complication. Electronically signed by: Dada Valiente M.D. 07/05/2018 10:48 AM
--- NOTE | 2018-07-05 10:51 | Anesthesiology Progress Note ---
Date of Service July 05, 2018 Anesthesia Post Procedure Vital Signs Vital Signs: Temp Resp BP Pulse Ox 07/05/18 06:50 36.8 C 19 111/37 L 96 Pain Intensity Left Knee: Pain Intensity: 3 Notes Mental Status: alert / awake / arousable Patient Amnestic to Procedure: Yes Nausea / Vomiting: adequately controlled Pain: adequately controlled Airway Patency, RR, SpO2: stable & adequate BP & HR: stable & adequate Hydration State: stable & adequate Neuraxial Anesthesia: was administered and sensory block is resolving Anesthetic Complications: no major complications apparent
--- NOTE | 2018-07-05 11:37 | Operative Report ---
DATE OF OPERATION: 07/05/2018 SURGEON: Mohinder Boyle MD. CLOCK MECHANIC: Martínez Kumari PA-C. No resident or fellow available. PREOPERATIVE DIAGNOSES: Osteoarthritis left knee with flexion and varus deformity. POSTOPERATIVE DIAGNOSES: Osteoarthritis left knee with flexion and varus deformity. OPERATION PERFORMED: Cemented left total knee replacement. PERIOPERATIVE SITUATION: Medically cleared female with intractable knee pain with physical exam, x-rays revealing substantial osteoarthritis with varus thrust deformity with walking. At this point in time, she wants to proceed with surgical treatment. She has failed conservative management. She understands the risks and consequences. See consent. SUMMARY OF IMPLANTS: Size 3 left posterior cruciate substituting femur, size 3 mobile bearing tray, size 3 spacer, posterior cruciate substituting 12.5 mm thick, oval dome 3 peg patella size 41, 2 bags of Palacos G cement. DESCRIPTION OF PROCEDURE: After the patient was identified, site verified, consent verified. Antibiotics confirmed as being given. Left lower extremity was prepped and draped in usual routine fashion. Midline exposure was utilized. Tourniquet inflated to 300 mmHg after exsanguination of limb with a rubber Esmarch bandage for a total of about 48 minutes. Parapatellar arthrotomy performed. Synovectomy completed. Osteophytes resected. Distal femur then entered. Distal femur resected 12 mm. Proximal tibia then subluxated after menisci excised and cruciates excised and the tibia was cut 4 mm. The extension gap was excellent. The femur was sized between a 4 and a 3, it was measured 4 cut 3. There was no notching on the anterior, posterior condylar and chamfer cuts. The flexion gap was excellent. The box cut was then made and the size 3 trial fit well. The tibia was then both broached and reamed to a size 3 and 12.5 mm spacer provided at the best mid range flexion stability, did not eliminate any extension. The patella was then resected leaving 16 mm and it was sized to a 41. The seating holes made and the trial tracked well. The knee was then irrigated with Betadine, Pulsavac and then injected with Orthomix and then the trial implants were removed and the TXA topical was placed for 3 minutes. Once this was done, it was irrigated with saline. Then this permanent cemented into position. After 12 minutes, the tourniquet deflated. Minor bleeding controlled with electrocautery. After 14 minutes, the knee was flexed, the trial spacer removed. No cement removal was required. Wound was irrigated with Betadine. A permanent liner seated and the knee reduced and closed with #2-0 Vicryl and stainless steel clips. Appropriate dressing applied. The patient was then transferred to Recovery Room in satisfactory condition having tolerated the procedure well. Bone pathology pending. ESTIMATED BLOOD LOSS: Roughly 75 mL. CRYSTALLOID: Per Anesthesia chart. DVT prophylaxis with Coumadin. I attest to the content of the Intraoperative Record and any orders documented therein. Any exceptions are noted below. MTDD
[2018-07-05] MEDS ORDERED: OXYCODONE HCL IR 5 MG TAB (IMMEDIATE RELEASE) PO PRN (11:42)
[2018-07-05] MEDS ORDERED: METOCLOPRAMIDE HCL INJ 5 MG/ML 2 ML VIAL IV PRN (11:42)
[2018-07-05] MEDS ORDERED: HYDROmorphone INJ 0.5 MG/0.5 ML SYR IV PRN (11:42)
[2018-07-05] MEDS ORDERED: BISACODYL 10 MG SUPP PR PRN (11:42)
[2018-07-05] MEDS ORDERED: ALUMINUM/MAGNESIUM SUSP 30 ML UDC PO PRN (11:42)
[2018-07-05] MEDS ORDERED: DiphenhydrAMINE HCL 50 MG/ML VIAL IV PRN (11:42)
[2018-07-05] MEDS ORDERED: MAGNESIUM HYDROXIDE SUSP 30 ML UDC PO PRN (11:42)
[2018-07-05] MEDS ORDERED: NALOXONE HCL 0.4 MG/1 ML VIAL/CARP IV PRN (11:42)
[2018-07-05] MEDS ORDERED: SODIUM CHLORIDE 0.9% 1000ML 1,000 ML IV SCH (13:00)
--- NOTE | 2018-07-05 13:04 | Progress Note ---
DATE: 07/05/2018 SUBJECTIVE: Postop check status post left total knee replacement. The patient is doing well, sitting up in bed. She has no numbness or tingling. She can wiggle her toes. Can do a straight leg raise. She has minimal pain. She denies chest pain, shortness of breath, fever, chills, nausea, vomiting, headache. OBJECTIVE: Vital signs stable. She is afebrile. Postop x-rays look excellent. ASSESSMENT: Doing well status post total knee replacement. We will Hep-Lock IV after lunch and will mobilize. Continue care pathway.
--- NOTE | 2018-07-05 13:33 | Anesthesiology Progress Note ---
Date of Service July 05, 2018 Anesthesia Post Procedure Vital Signs Vital Signs: Temp Pulse Pulse Resp BP Pulse Ox 07/05/18 12:33 60 16 127/58 L 96 07/05/18 12:00 61 18 109/67 99 07/05/18 11:30 36.6 C 67 17 111/68 95 07/05/18 11:15 69 16 114/56 L 98 07/05/18 11:00 36.2 C L 77 18 114/49 L 97 07/05/18 10:50 74 18 133/59 L 98 07/05/18 10:40 76 23 133/67 98 07/05/18 10:34 36.6 C 78 17 118/48 L 99 07/05/18 06:50 36.8 C 19 111/37 L 96 Pain Intensity Left Knee: Pain Intensity: 0 Notes Mental Status: alert / awake / arousable Patient Amnestic to Procedure: Yes Nausea / Vomiting: adequately controlled Pain: adequately controlled Airway Patency, RR, SpO2: stable & adequate BP & HR: stable & adequate Hydration State: stable & adequate Anesthetic Complications: no major complications apparent Notes: Block working well in pacu
[2018-07-05] MEDS ORDERED: ORTHO WARFARIN NOMOGRAM SCH (14:00)
[2018-07-05] MEDS: LISINOPRIL 5 MG TAB PO SCH (14:08)
[2018-07-05] MEDS: DONEPEZIL HCL 5 MG TAB PO SCH (14:08)
[2018-07-05] MEDS: METOPROLOL SUCC 50MG EXT REL TAB PO SCH (14:08)
[2018-07-05] MEDS: ACETAMINOPHEN 500 MG TAB PO SCH ×2 (14:08→21:10)
[2018-07-05] MEDS: KETOROLAC TROMETHAMINE 15 MG/ML VIAL IV SCH ×2 (14:08→20:44)
[2018-07-05] MEDS: SIMVASTATIN 20 MG TAB PO SCH (14:08)
[2018-07-05] MEDS ORDERED: WARFARIN SOD 5 MG TAB PO SCH (16:00)
[2018-07-05] MEDS ORDERED: WARFARIN SOD 5 MG TAB PO ONE (16:00)
[2018-07-05] MEDS: FERROUS GLUCONATE 324 MG TAB PO SCH (17:37)
[2018-07-05] MEDS: CEFAZOLIN 2000MG 2,000 MG/15 ML SYR IV SCH (18:21)
[2018-07-05] MEDS: DOCUSATE SODIUM 100 MG CAP PO SCH (20:48)
[2018-07-05] MEDS ORDERED: SENNA 8.6 MG TAB PO SCH (21:00)
[2018-07-06] MEDS: CEFAZOLIN 2000MG 2,000 MG/15 ML SYR IV SCH (01:25)
[2018-07-06] MEDS: KETOROLAC TROMETHAMINE 15 MG/ML VIAL IV SCH ×2 (01:25→09:32)
[2018-07-06] MEDS: ACETAMINOPHEN 500 MG TAB PO SCH (05:27)
[2018-07-06 06:10] LABS: Hematocrit (blood only) 32.7 % (37-47); Hemoglobin 10.8 g/dL (12.0-16.0); Platelet Count 186 K/uL (130-400); RDW Coefficient of Variation 13.6 % (11.5-14.5); RDW Standard Deviation 46.2 fL (36.4-46.3); Red Blood Count 3.48 M/uL (4.2-5.4); White Blood Count 15.96 K/uL (4.8-10.8)
[2018-07-06 06:21] LABS: Prothrombin Time 10.4 Seconds (9.0-12.0)
[2018-07-06] MEDS ORDERED: LEVOTHYROXINE SODIUM 88 MCG TABLET PO SCH (06:30)
[2018-07-06 06:49] LABS: BUN Creatinine Ratio 12.8 (10-20); Calcium 8.9 mg/dl (8.5-10.1); Est GFR (African American) 27.8; Potassium 4.5 mmol/L (3.5-5.1)
--- NOTE | 2018-07-06 07:07 | Progress Note ---
DATE: 07/06/2018 SUBJECTIVE: Postop day #1 status post left total knee replacement. The patient is doing well, has no issues. She denies any chest pain, shortness of breath, fever, chills, nausea, vomiting or headache. She moves well. OBJECTIVE: Vital signs are stable. She is afebrile. Neurovascular check femoral sciatic nerve is normal. Wound dressing clean, dry and intact. ASSESSMENT: Doing well. INR is 1.0. We will give 1 small dose of Lovenox today and discharge on 7.5 mg of Coumadin today through Tuesday. Check INR again on Tuesday. We will try to avoid Lovenox to prevent any kind of wound problems. This was discussed in detail with the patient and family. They understand and accept the risks and consequences.
--- NOTE | 2018-07-06 07:48 | Anesthesiology Progress Note ---
Date of Service July 06, 2018 Anesthesia Post Procedure Vital Signs Vital Signs: Temp Pulse Pulse Resp BP Pulse Ox 07/06/18 07:38 36.5 C 57 L 18 139/74 97 07/06/18 04:03 36.6 C 53 L 15 126/70 96 07/05/18 23:01 36.6 C 54 L 18 92/57 L 96 07/05/18 19:42 36.6 C 58 L 18 117/67 92 07/05/18 16:44 36.3 C L 58 L 18 97/63 L 94 07/05/18 14:30 57 L 18 117/58 L 94 07/05/18 13:35 61 18 110/61 92 07/05/18 12:33 60 16 127/58 L 96 07/05/18 12:00 61 18 109/67 99 07/05/18 11:30 36.6 C 67 17 111/68 95 07/05/18 11:15 69 16 114/56 L 98 07/05/18 11:00 36.2 C L 77 18 114/49 L 97 07/05/18 10:50 74 18 133/59 L 98 07/05/18 10:40 76 23 133/67 98 07/05/18 10:34 36.6 C 78 17 118/48 L 99 Pain Intensity Left Knee: Pain Intensity: 0 Notes Mental Status: alert / awake / arousable and participated in evaluation Patient Amnestic to Procedure: Yes Nausea / Vomiting: adequately controlled Pain: adequately controlled Airway Patency, RR, SpO2: stable & adequate BP & HR: stable & adequate Hydration State: stable & adequate Neuraxial Anesthesia: sensory block resolved Anesthetic Complications: Pt Satisfied with anesthetic care
[2018-07-06] MEDS ORDERED: dexAMETHasone 10 MG in SYRINGE 0 ML IV SCH (08:00)
[2018-07-06] MEDS ORDERED: ENOXAPARIN INJ 30 MG/0.3 ML SYR SQ ONE (08:00)
--- NOTE | 2018-07-06 08:53 | Discharge Summary ---
CHIEF COMPLAINT: Left knee pain. HISTORY OF PRESENT ILLNESS: The patient underwent elective left total knee replacement. Hospital course has been uneventful. She is ambulatory. Pain is well managed. She is eating and drinking well. She denies chest pain, shortness of breath, fever, chills, nausea, vomiting or headache. PAST MEDICAL HISTORY: Remarkable for hypertension, hypercholesterolemia, atrial fibrillation, DVT, sleep apnea, lung cancer, obesity, history of osteoarthritis, basal cell cancer and seborrheic keratosis. PREVIOUS SURGERIES: Include lung surgery with lobectomy on the right, partial hysterectomy, varicose vein stripping, eye surgery, cholecystectomy. SOCIAL HISTORY: She is retired. No tobacco or alcohol use. She is and takes care of a chronically ill spouse. ALLERGIES: SULFA. PREADMISSION MEDICATIONS: Include vitamin D, donepezil, Breo Ellipta, furosemide, Synthroid, lisinopril, lithium, methenamine, metoprolol, potassium, simvastatin and Coumadin 4 mg daily. She will be discharged on all these medications. Increase her Coumadin to 7.5 mg for 4-5 days. Repeat INR on Tuesday. REVIEW OF SYSTEMS: Noncontributory. ASSESSMENT: Status post left total knee replacement, doing well. Discharge on 7.5 mg of Coumadin daily. Check INR on Tuesday. Get INR up to 2.0 as quickly as possible, but not up to 3.
[2018-07-06] MEDS ORDERED: MULTIVITAMIN TAB PO SCH (09:00)
[2018-07-06] MEDS ORDERED: LITHIUM CARBONATE SLOW REL 300 MG TAB PO SCH (09:00)
[2018-07-06] MEDS ORDERED: POTASSIUM CHLORIDE 20 MEQ TABCR PO SCH (09:00)
[2018-07-06] MEDS ORDERED: WARFARIN SOD 7.5 MG TAB PO ONE (09:00)
[2018-07-06] MEDS: LISINOPRIL 5 MG TAB PO SCH (09:32)
[2018-07-06] MEDS: METOPROLOL SUCC 50MG EXT REL TAB PO SCH (09:33)
[2018-07-06] MEDS: DONEPEZIL HCL 5 MG TAB PO SCH (09:34)
[2018-07-06] MEDS: FERROUS GLUCONATE 324 MG TAB PO SCH (09:34)
[2018-07-06] MEDS: DOCUSATE SODIUM 100 MG CAP PO SCH (09:34)
[2018-07-06] MEDS: SIMVASTATIN 20 MG TAB PO SCH (09:36)
[2018-07-06] MEDS ORDERED: WARFARIN SOD 7.5 MG TAB PO SCH (16:00)
== END 2018-07-06 13:39 | disposition home health service (06) | DRG 470 ==
LOC: ASU 06:16 → 3E 10:39

== ENCOUNTER 2019-05-02 06:11 | Observation (INO) ==
--- NOTE | 2019-04-04 13:57 | PAT Medication Instructions ---
Medication Instructions Date of Service April 04, 2019 Home Medications Medication Instructions Recorded diclofenac sodium 1 % topical gel 2 gm TOP QID #100 gm 01/23/19 donepezil 5 mg tablet 5 mg PO HS #90 tab 01/24/19 cholecalciferol (vitamin D3) [Vitamin D3] 2,000 unit PO QAM levothyroxine [Synthroid] 88 mcg PO QAM lisinopril 5 mg PO QAM lithium carbonate 300 mg PO QAM methenamine hippurate 1 g PO QPM metoprolol succinate 50 mg PO QAM potassium chloride 20 meq PO QAM simvastatin 20 mg PO QAM warfarin 4 mg tablet 4 mg PO DAILY diclofenac sodium 1 % topical gel 2 gm TOP QID donepezil 5 mg tablet 5 mg PO HS ASK your prescriber and surgeon warfarin 4 mg tablet 4 mg PO DAILY STOP taking 24 hours before surgery diclofenac sodium 1 % topical gel 2 gm TOP QID DO NOT take the morning of surgery cholecalciferol (vitamin D3) [Vitamin D3] 2,000 unit PO QAM lisinopril 5 mg PO QAM potassium chloride 20 meq PO QAM Take morning of surgery With a small sip of water, OTHERWISE NOTHING TO EAT OR DRINK AFTER MIDNIGHT: levothyroxine [Synthroid] 88 mcg PO QAM lithium carbonate 300 mg PO QAM metoprolol succinate 50 mg PO QAM simvastatin 20 mg PO QAM Take evening before surgery methenamine hippurate 1 g PO QPM donepezil 5 mg tablet 5 mg PO HS Other Notes If you have any questions please call us at [phone] or [phone] or or [phone]
--- NOTE | 2019-04-05 14:23 | Anesthesiology Consultation ---
Date of Service April 05, 2019 Assessment & Plan (1) Encounter for pre-operative examination: S/P L TKA 07/05/18 = SAB and nerve block x 1 attempt, no complications noted. Chart Review Chart Review: Acceptable Risk for Surgery (pending surgeon-ordered PCP clearance ([facility])) and Patient seen in Pre Admission Testing Teaching & Discussion Instructed NPO after midnight before surgery, except medications with 15 cc of water. Medication instructions provided according to the PAT guidelines. History Surgery Operation Date: 05/02/19 07:00 Proposed Procedures p Right Total Knee Arthroplasty - Mohinder Boyle MD Height/Weight Height: 5 ft 3 in Weight: 100 kg Allergies Allergy/AdvReac Type Severity Reaction Status Date / Time Penicillins Allergy Severe THROAT Verified 04/03/19 08:02 SWELLING Sulfa (Sulfonamide Allergy Severe "PAINS IN Verified 04/03/19 08:02 Antibiotics) MY HEART" benzalkonium AdvReac Unknown Verified 04/03/19 08:02 Cephalosporins AdvReac Unknown Verified 04/03/19 08:02 oxycodone AdvReac Unresponsiv Verified 04/03/19 08:02 e sulfacetamide AdvReac Unknown Verified 04/03/19 08:02 Medications Home Medications Medication Instructions Recorded Confirmed Last Taken cholecalciferol (vitamin D3) 2,000 unit PO QAM 04/07/18 04/03/19 07/04/18 08:00 [Vitamin D3] levothyroxine [Synthroid] 88 mcg PO QAM 04/07/18 04/03/19 07/04/18 07:30 lisinopril 5 mg PO QAM 04/07/18 04/03/19 07/04/18 08:00 lithium carbonate 300 mg PO QAM 04/07/18 04/03/19 07/04/18 21:00 methenamine hippurate 1 g PO QPM 04/07/18 04/03/19 07/04/18 18:00 metoprolol succinate 50 mg PO QAM 04/07/18 04/03/19 07/04/18 08:00 potassium chloride 20 meq PO QAM 04/07/18 04/03/19 07/04/18 08:00 simvastatin 20 mg PO QAM 04/07/18 04/03/19 07/04/18 08:00 warfarin 4 mg tablet 4 mg PO DAILY 09/28/18 04/03/19 Unknown diclofenac sodium 1 % topical gel 2 gm TOP QID #100 gm 01/23/19 04/03/19 Unknown donepezil 5 mg tablet 5 mg PO HS #90 tab 01/24/19 04/03/19 Unknown Past Medical History Medical History (Updated 04/06/19 @ 12:45 by Tony Zamarripa) Asthma no inhaler Atrial flutter HX OF A-FLUTTER. PT HAD CARDIOVERSION [address] JACOBO. REMAINS STABLE. Bipolar disorder (11/11/12) C. difficile colitis (Resolved) PT UNSURE OF EXACT DATE. DX AND TREATED AT [facility]. NO COMPLICATIONS SINCE Chronic kidney disease STAGE 3 History of DVT (deep vein thrombosis) 1ST ONE 40 YEARS AGO AFTER CHILDBIRTH, 2ND DVT FOLLOWING EXTENDED BED REST APPROX 10 YEARS AGO Hyperlipidemia Hypertension Hypothyroidism Non-small cell carcinoma of lung TUMOR EXCISION, NO CHEMO REQUIRED [facility] Obesity Pulmonary hypertension Per 2015 echo:Moderate pulmonary hypertension suggested; estimated RVSP 56 mmHg. Valvular heart disease Per 2015 echo: There is mild mitral regurgitation. There is mild to moderate tricuspid regurgitation. Exercise / Class Metabolic Activity III < 4 Walking/Shop/Light housework (DENIES CP OR SOB WITH AMBULATION. MINIMAL ACTIVITY.) Past Family History Family History Sister Breast cancer Mother Colorectal cancer Diabetes Father Lung cancer Past Surgical History Surgical History H/O varicose vein stripping BILATERAL LOWER EXTREMITIES History of cardioversion History of left knee replacement 07/05/2018 [facility] History of lung surgery TUMOR EXCISION, NO CHEMO REQUIRED. PT UNSURE OF DATE OF TYPE OF SURGERY History of partial hysterectomy History of phacoemulsification of cataract of both eyes with intraocular lens implantation Hx of cholecystectomy Past Anesthesia History No Hx of Anesthesia Complications and No Family Hx of Anesthesia Complications History of PONV No Hx of PONV and No Hx of Motion Sickness Social History Smoking Status: Former smoker tobacco type: cigarettes Smoking cigarettes per day: QUIT 20 YEARS AGO Do You Dip or Chew Tobacco: No Hx Alcohol Use: No Hx Substance Use: No substance use type: does not use Review of Systems Pt denies any recent chest pain, shortness of breath, palpitations, cough, fever or URI. +sinus drainage/runny nose Physical Exam Vital Signs BP: 96/61 (denies lightheadedness/dizziness) P: 66bpm SPO2: 97% RA T: 97.4 F R: 16 Constitutional + obese ENMT Mouth: + dentures and + edentulous Thyromental Distance: > or= 3.5 Finger Breadths (3.5) Mallampati Class: II Neck + thick neck; neck extension not limited Respiratory normal respiratory effort Auscultation: lungs clear to auscultation bilaterally Cardiovascular Rate/Rhythm: regular rate; + abnormal rhythm (irreg irreg) Heart Sounds: no murmur Extremities: + edema (1+ nonpitting) Testing Laboratory Results 04/05/19 14:35 04/05/19 14:35 PT 16.7 Seconds (9.0-12.0) H 04/05/19 14:35 INR 1.7 (0.9-1.1) H 04/05/19 14:35 APTT 29.3 Seconds (21.0-31.0) 04/05/19 14:35 Urine Color Yellow 04/05/19 14:35 Urine Appearance Clear (Clear) 04/05/19 14:35 Urine pH 6.0 (4.5-7.5) 04/05/19 14:35 Ur Specific [place] 1.006 (1.000-1.030) 04/05/19 14:35 Urine Protein Negative (Negative) 04/05/19 14:35 Urine Glucose (UA) Negative (Negative) 04/05/19 14:35 Urine Ketones Negative (Negative) 04/05/19 14:35 Urine Nitrite Negative (Negative) 04/05/19 14:35 Ur Leukocyte Esterase 2+ (Negative) H 04/05/19 14:35 Urine WBC (Auto) >30 /hpf (0-5) H 04/05/19 14:35 Urine RBC (Auto) 5-10 /hpf (0-4) H 04/05/19 14:35 U Hyaline Cast (Auto) 1-5 /lpf (0-5) 04/05/19 14:35 U Epithel Cells (Auto) 10-20 /lpf (0-5) H 04/05/19 14:35 Urine Bacteria (Auto) 1+ (Negative) H 04/05/19 14:35 Blood Type O Positive 04/05/19 14:35 Antibody Screen NEGATIVE 04/05/19 14:35 04/05/19 14:35 Urine Culture - Preliminary Urine,Clean Catch Gram negative bacilli *Surgeon's office notified re: + UA Electrocardiogram Date: 04/05/19 Findings: + NSR @ (61bpm with sinus arrhythmia) Chest X-Ray Date: 04/05/19 IMPRESSION: Cardiomegaly and emphysema with no active disease in the chest. Echocardiogram Date: 01/20/15 1. Normal left ventricular size and systolic function. No regional wall motion abnormalities visualized (technically difficult images). Estimated EF 60-65%. No left ventricular hypertrophy. 2. Right ventricle not well visualized, but appears mildly dilated with normal systolic function. 3. Moderate biatrial dilation. 4. There is mild mitral regurgitation. 5. There is mild to moderate tricuspid regurgitation. 6. Moderate pulmonary hypertension suggested; estimated RVSP 56 mmHg. 7. Technically difficult study. Stress Test Date: 06/28/18 Type: nuclear Conclusions: 1. No scintigraphic evidence of a prior myocardial infarction or stress-induced myocardial ischemia. 2. No Lexiscan induced chest pain. 3. No Lexiscan induced EKG changes. 4. Normal left ventricular systolic function without wall motion abnormality. Left ventricular ejection fraction is >70%.
[2019-04-05 15:25] LABS: Basophils # (auto) 0.06 K/uL (0-0.2); Basophils % (auto) 0.7 %; Eosinophils # (auto) 0.18 K/uL (0-0.5); Eosinophils % (auto) 2.2 %; Hematocrit (blood only) 38.3 % (37-47); Hemoglobin 12.4 g/dL (12.0-16.0); Immature Granulocytes # (auto) 0.02 K/uL (0.00-0.02); Immature Granulocytes % (auto) 0.2 %; Lymphocytes # (auto) 2.37 K/uL (1.2-3.4); Lymphocytes % (auto) 28.3 %; Mean Corpuscular Hemoglobin 30.8 pg (25-34); Mean Corpuscular Hgb Conc 32.4 g/dL (32-36); Mean Corpuscular Volume 95.3 fL (80-100); Mean Platelet Volume 11.2 fL (7.4-10.4); Monocytes # (auto) 0.54 K/uL (0.11-0.59); Monocytes % (auto) 6.5 %; Neutrophils % (auto) 62.1 %; Platelet Count 236 K/uL (130-400); RDW Coefficient of Variation 13.6 % (11.5-14.5); RDW Standard Deviation 47.3 fL (36.4-46.3); Red Blood Count 4.02 M/uL (4.2-5.4); White Blood Count 8.37 K/uL (4.8-10.8)
[2019-04-05 15:27] LABS: INR 1.7 (0.9-1.1); Partial Thromboplastin Ratio 1.1; Partial Thromboplastin Time 29.3 Seconds (21.0-31.0); Prothrombin Time 16.7 Seconds (9.0-12.0)
--- NOTE | 2019-04-05 15:27 | XRay Report ---
TWO VIEW CHEST CLINICAL HISTORY: Preoperative examination. FINDINGS: PA and lateral chest radiographs are compared to study dated 07/07/2018 and correlated with chest CT dated 07/08/2018. The heart is enlarged noting atherosclerotic calcification of the thoracic aorta. Emphysema and chronic interstitial thickening are similar to previous. There is no airspace co nsolidation or pleural effusion. Scarring/atelectasis is noted at the lung bases. There is no pneumot horax. The skeletal structures are osteopenic. The bony thorax appears intact. Cholecystectomy clips are noted in the upper abdomen. IMPRESSION: Cardiomegaly and emphysema with no active disease in the chest. ACT 112: Negative or not required by law. Electronically signed by: Hugh Zimmer M.D. 04/05/2019 3:25 PM
[2019-04-05 15:29] LABS: Appearance Urine Clear (Clear); Bacteria Urine Automated 1+ (Negative); Bilirubin Urine Negative (Negative); Blood Urine Negative (Negative); Color Urine Yellow; Glucose Urine UA Negative (Negative); Ketones Urine Negative (Negative); Leukocyte Esterase Urine 2+ (Negative); Nitrite Urine Negative (Negative); Protein Urine Negative (Negative); Specific Gravity Urine 1.006 (1.000-1.030); Urobilinogen Urine Negative (Negative); WBC Urine Automated >30 /hpf (0-5)
[2019-04-05 15:32] LABS: BUN Creatinine Ratio 10.4 (10-20); Calcium 9.5 mg/dl (8.5-10.1); Creatinine Clr Calc Pharmacy 40.2 ml/min; Est GFR (African American) 46.6; Est GFR (Non-African American) 40.2; Potassium 4.4 mmol/L (3.5-5.1)
--- NOTE | 2019-04-27 15:44 | History and Physical Report ---
DATE OF ADMISSION: 05/02/2019 CHIEF COMPLAINT: Right knee DJD. HISTORY OF PRESENT ILLNESS: This 79-year-old white female presents to the office with complaints of longstanding history of right knee pain. Symptoms have been ongoing for years. She previously had a left total knee arthroplasty on 07/14/2018 and has done well with that. She elects to proceed with the same on the right. Pain has become worse with time. It is worse with weightbearing. Pain is affecting her ADLs. She has tried cortisone injections, activity modification, and viscosupplementation injections without lasting improvement. She continues to ambulate with a cane. No numbness or tingling. Preoperative imaging has been obtained. 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 PAST MEDICAL HISTORY: Significant for hypertension, elevated cholesterol, atrial fibrillation, history of DVT x2, sleep apnea, lung cancer, obesity, osteoarthritis, history of basal cell skin cancer, and seborrheic keratosis. PAST SURGICAL HISTORY: Right lung lower lobectomy in 2013, partial hysterectomy, varicose vein stripping, eye surgery, cholecystectomy, left total knee arthroplasty in 06/2018. SOCIAL HISTORY: The patient is retired. She takes care of her chronically ill spouse. . No tobacco use. No ETOH use. FAMILY HISTORY: Significant for colon cancer and lung cancer. ALLERGIES: KNOWN ALLERGY TO SULFA DRUGS. CURRENT MEDICATIONS: Furosemide 20 mg p.o. p.r.n., vitamin D3 daily, lisinopril unknown dose daily, metoprolol 50 mg p.o. daily, simvastatin 20 mg p.o. at bedtime, Coumadin 4 mg p.o. daily, potassium unknown dose daily, Synthroid 88 mcg p.o. daily, methenamine 1 gram p.o. b.i.d., donepezil 5 mg p.o. daily, lithium 300 mg p.o. daily. REVIEW OF SYSTEMS: A total of 10 systems are reviewed and are significant only for above-stated conditions. PHYSICAL EXAMINATION: GENERAL: Well-developed, well-nourished elderly white female in no acute distress. Sitting in a chair. Alert and oriented. Happy. SKIN: Warm and dry with good turgor. No rashes or lesions. No ecchymosis or erythema. HEENT: Normocephalic, atraumatic. Eyes PERRLA, EOMI. Nares patent bilaterally without turbinate enlargement. Oropharynx without erythema or exudate. No lesions noted. Uvula midline. Oral mucosa moist. Upper and lower denture plates are noted. HEART: RRR. No MGR. LUNGS: Clear to auscultation bilaterally. No crackles, rhonchi or wheezing. Good air movement. ABDOMEN: Obese. Bowel sounds present x4, soft, nontender. No organomegaly. No masses. MUSCULOSKELETAL: Right knee evaluation reveals no intraarticular effusion. She has crepitus palpable with motion. Full terminal extension. Flexion to greater than 90 degrees. Strength is 5/5 with fair quad tone. Stable collateral ligaments. No defect in the patellar tendon or quadriceps tendon. There is focal discomfort with palpation over the medial and lateral joint lines. The patient has a varus alignment of her knee. Ambulatory with an antalgic gait using her cane. NEUROLOGIC: Cranial nerves II through XII are intact. Gross sensation is intact across both lower extremities by soft touch. Peripheral pulses are 2+. DATA: Radiographic imaging obtained today show significant degenerative changes in the medial and lateral compartments as well as patellofemoral compartment. Periarticular osteophytes, subchondral sclerosis, and joint space narrowing are all present. IMPRESSION: Right knee end-stage degenerative joint disease. PLAN: Informed written consent will be obtained on the day of surgery to proceed with right total knee arthroplasty. Postoperative prescription for [place] will be provided at discharge from the hospital. She became confused in the hospital with Percocet. Preoperative lab work, EKG, and chest x-ray have been ordered. She will discuss bridging her Coumadin with the Coumadin clinic and will use Lovenox preoperatively if designated. We will resume Coumadin the night of surgery. Previous stress test was completed on 06/23/2018 at [facility]. She will see her PCP for medical clearance. She already has a cane and walker.
[~2019-05-02 06:11] MED LIST changes: -LR 60ML/HR IV SCH
[2019-05-02] MEDS ORDERED: ROPIVACAINE 0.5% 5 MG/ML 30 ML VIAL ONE (06:26)
[2019-05-02] MEDS ORDERED: BUPIVACAINE 0.5 % 5 MG/1 ML PF 10ML VIAL ONE (06:26)
--- NOTE | 2019-05-02 06:30 | History & Physical Bridge Note ---
Date of Service May 02, 2019 History & Physical Bridge Note I have examined the patient, reviewed the History & Physical and in the interval since the performance of the History & Physical I have noted the following changes of clinical significance: consent obtained.no changes noted
[2019-05-02] MEDS ORDERED: MIDAZOLAM HCL 1 MG/ML 2ML VIAL ONE (07:02)
[2019-05-02] MEDS ORDERED: ATROPINE SULFATE 0.1 MG/ML 10ML SYR IV PRN (07:14)
[2019-05-02] MEDS ORDERED: ONDANSETRON INJ 2 MG/ML 2 ML VIAL IV PRN ×2 (07:14→10:30)
[2019-05-02] MEDS ORDERED: LIDOCAINE HCL 2% 2 ML VIAL/AMP(20MG/ML) INFIL ONE (07:14)
[2019-05-02] MEDS ORDERED: ePHEDrine sulfate 50 MG/ML AMP IV PRN (07:14)
[2019-05-02] MEDS ORDERED: PROPOFOL IV EMULSION 10 MG/ML 20 ML VIAL IV ONE (07:14)
[2019-05-02] MEDS ORDERED: ONDANSETRON INJ 2 MG/ML 2 ML VIAL ONE (07:14)
[2019-05-02] MEDS ORDERED: DEXAMETHASONE SOD INJ 4 MG/ML VIAL ONE (07:14)
[2019-05-02] MEDS ORDERED: HYDROmorphone INJ 1 MG/ML SYRINGE IV PRN (07:14)
[2019-05-02] MEDS ORDERED: ORTHO JOINT ANESTHETIC ONE (07:50)
[2019-05-02] MEDS ORDERED: PHENYLEPHRINE 100MCG/ML 5ML SYR ONE (08:42)
[2019-05-02] MEDS ORDERED: UMECLIDINIUM BROMIDE 62.5MCG/BLISTER 7 PUFFS/INHALER INH ONE (09:00)
--- NOTE | 2019-05-02 09:28 | Post Operative Brief Note ---
Immediate Post Op Note v1 Date of Surgery May 02, 2019 Pre & Post Diagnosis Operation Date: 05/02/19 08:20 Pre-Op Diagnosis: Right Knee Degenerative Joint Disease Post-Op Diagnosis: Right Knee Degenerative Joint Disease I identified the patient and participated in the time-out.: Yes Procedure Operation Date: 05/02/19 08:20 Actual Procedures p Right Total Knee Arthroplasty, Cemented(Right) - Mohinder Boyle MD Surgeon Mohinder Boyle MD [facility] Estimated Blood Loss 75 Findings Consistent with Post-Op Diagnosis
--- NOTE | 2019-05-02 09:42 | Operative Report ---
Post Operative Report Pre & Post Diagnosis Operation Date: 05/02/19 08:20 Pre-Op Diagnosis: Right Knee Degenerative Joint Disease Post-Op Diagnosis: Right Knee Degenerative Joint Disease I identified the patient and participated in the time-out.: Yes Procedure Operation Date: 05/02/19 08:20 Actual Procedures p Right Total Knee Arthroplasty, Cemented(Right) - Mohinder Boyle MD Surgeon TRAVON Boyle MD [facility] Estimated Blood Loss 75 Findings Consistent with Post-Op Diagnosis Specimens see operative report Drains none Complications none Disposition Accompanied Patient To Recovery: Yes Disposition: Recovery Room Indications This 79-year-old white female presented to the office with complaints of intractable right knee pain. She had tried conservative care measures without improvement. She has a history of previous left total knee arthroplasty and has done well with that. She elected to proceed with the same on the right. Preoperative imaging was obtained. Description of Procedure Patient was administered a spinal anesthetic and then taken to the operating room where she was given sedation. She was prepped and draped in the usual sterile fashion. Please see Dr. Boyle's operative report for specifics of the procedure. I was present for the entire case from initial patient positioning through final wound closure. Assistance was provided in tissue retraction, hemostasis, trial implant placement, final implant placement, and final wound closure. Patient was taken to the recovery room in satisfactory condition. I attest to the content of the Intraoperative Record and any orders documented therein. Any exceptions are noted below.
--- NOTE | 2019-05-02 10:01 | Operative Report ---
DATE OF OPERATION: 05/02/2019 SURGEON: Mohinder Boyle MD. STREET SWEEPER: Martínez Kumari PA-C. No resident or fellow available. PREOPERATIVE DIAGNOSES: Osteoarthritis with varus flexion deformity, right knee. POSTOPERATIVE DIAGNOSES: Osteoarthritis with varus flexion deformity, right knee. OPERATION PERFORMED: Right cemented total knee replacement. SUMMARY OF IMPLANTS: Size 3 right femur, posterior cruciate substituting size 3, mobile bearing tray tibia, size 41 patella, over domed 3-peg patella. Size 3 x 12.5 mm insert posterior cruciate stabilizing, 2 bags of [place] G cement. ESTIMATED BLOOD LOSS: Roughly 75 mL. PATHOLOGY: Pending on bone. DVT PROPHYLAXIS: Per protocol. PERIOPERATIVE SITUATION: Medically cleared female with intractable knee pain, had similar procedure done on the left side about a year ago. At this point in time, wanted to proceed with this side. DESCRIPTION OF PROCEDURE: The patient was appropriately identified, site verified, consent verified. Antibiotics confirmed as being given. She tolerated a spasm last time and tolerated again this time. The right lower extremity was prepped and draped in the usual routine fashion. Tourniquet inflated to 300 mmHg after exsanguination of the limb with a rubber Esmarch bandage for a total of 47 minutes. Midline exposure was utilized. Parapatellar arthrotomy performed. Synovectomy completed, osteophytes resected. Femur then flexed, menisci resected. Patella everted easily. Distal femur entered and distal femur resected 14 mm. Proximal tibia resected 4 mm. The extension gap was excellent with the 12.5 spacer. The femur was sized between a 4 and a 3, was measured 4 cut 3. Flexion gap was slightly tight laterally. Capsular release improved nicely. The box cut was then made and the size 3 fit well. The tibia was then subluxated and broached and reamed to a size 3, 12.5 mm spacer. The knee was well balanced and the patella tracked well. The patella was everted and resected leaving about 16 mm of thickness, size 41 template fit best. Seating holes made and the trial tracked well. All implants were then removed. TXA was placed for close to 3.5-4 minutes. This was then irrigated and then the Betadine placed for 2 minutes as the cement was being mixed and then the wound irrigated. The implants cemented into position with tibia, femur and patella in that sequence. After 12 minutes, the tourniquet deflated. Minor bleeding points controlled with electrocautery. EBL was roughly 75 mL. Once everything was cured, the trial implant spacer was removed. The permanent seated. No cement removal was required. The wound was then irrigated in Pulsavac and the knee reduced and then the patella tracked well. The knee was stable. Flexion gap was checked prior to doing all this with the trials. The knee was then closed at about 40 degrees of flexion with #2 Vicryl for the capsule, 2-0 Vicryl for the subcutaneous layer and stainless steel clips for skin. Appropriate dressing applied and the patient transferred to Recovery Room in satisfactory condition having tolerated the procedure well. I attest to the content of the Intraoperative Record and any orders documented therein. Any exception s are noted below.
[2019-05-02] MEDS ORDERED: NALOXONE HCL 0.4 MG/1 ML VIAL/CARP IV PRN (10:30)
[2019-05-02] MEDS ORDERED: HYDROCODONE/ACETAMOPHEN 5/325MG TAB PO PRN (10:30)
[2019-05-02] MEDS ORDERED: MAGNESIUM HYDROXIDE SUSP 30 ML UDC PO PRN (10:30)
[2019-05-02] MEDS ORDERED: DiphenhydrAMINE HCL 50 MG/ML VIAL IV PRN (10:30)
[2019-05-02] MEDS ORDERED: ALUMINUM/MAGNESIUM SUSP 30 ML UDC PO PRN (10:30)
[2019-05-02] MEDS ORDERED: METOCLOPRAMIDE HCL INJ 5 MG/ML 2 ML VIAL IV PRN (10:30)
[2019-05-02] MEDS ORDERED: SODIUM CHLORIDE 0.9% 1000ML 1,000 ML IV SCH (10:30)
[2019-05-02] MEDS ORDERED: bisacodyL 10 MG SUPP PR PRN (10:30)
--- NOTE | 2019-05-02 10:59 | XRay Report ---
XR knee RT 1 or 2V routine CLINICAL HISTORY: 79 years-old Female presenting with Surgical Post Op. TECHNIQUE: Frontal and crosstable lateral views of the right knee were obtained. COMPARISON: 08/21/2018. FINDINGS: The images of the right knee are listed under the accession number for the left knee. This report ref lects the images of the right knee. Postsurgical changes of total right knee arthroplasty with patellar resurfacing new from prior grafts and august. No malalignment. No periprosthetic fracture or lucency. Expected soft tissue emphysema. Ove rlying skin rony. Atherosclerosis. IMPRESSION: Expected postsurgical changes status post total right knee arthroplasty with patellar resurfacing. ACT 112: Negative or not required by law. Electronically signed by: Esteban Eason M.D. 05/02/2019 10:09 AM
[2019-05-02] MEDS: KETOROLAC TROMETHAMINE 15 MG/ML VIAL IV SCH ×3 (11:58→23:54)
--- NOTE | 2019-05-02 12:18 | Progress Note ---
DATE: 05/02/2019 SUBJECTIVE: Status post right total knee replacement. The patient is sitting up in bed eating her lunch comfortably. Denies chest pain, shortness of breath, fever, chills, nausea, vomiting, or headache. OBJECTIVE: Vital signs are stable. She is afebrile. Neurovascular check of the femoral sciatic nerve is improving nicely. Block is wearing off. Wound dressing is clean, dry and intact. At this point in time, postop x-rays look excellent. She is doing well, will follow up with me in a.m. Potential discharge/transfer tomorrow. DIAGNOSIS: Right knee replacement.
[2019-05-02] MEDS ORDERED: Nursing to Pharmacy Communication ONE (12:31)
--- NOTE | 2019-05-02 12:52 | Anesthesiology Progress Note ---
Date of Service May 02, 2019 Anesthesia Post Procedure Vital Signs Vital Signs: Temp Pulse Pulse Resp BP Pulse Ox 05/02/19 12:23 36.6 C 45 L 18 140/73 98 05/02/19 11:20 51 L 16 113/71 99 05/02/19 10:50 36.4 C L 50 L 16 104/65 100 05/02/19 10:20 36.4 C L 58 L 16 100/66 93 05/02/19 09:55 36.7 C 66 16 99/51 L 95 05/02/19 09:45 60 16 102/48 L 96 05/02/19 09:39 36.9 C 81 16 108/54 L 96 05/02/19 07:53 61 20 102/45 L 100 05/02/19 06:41 36.8 C 72 20 146/74 H 98 Transfer of Care Handoff Completed per policy Notes Mental Status: alert / awake / arousable Patient Amnestic to Procedure: Yes Nausea / Vomiting: adequately controlled Pain: adequately controlled Airway Patency, RR, SpO2: stable & adequate BP & HR: stable & adequate Hydration State: stable & adequate Anesthetic Complications: no major complications apparent
--- NOTE | 2019-05-02 13:06 | Discharge Summary ---
CHIEF COMPLAINT: Right knee pain. HISTORY OF PRESENT ILLNESS: The patient underwent elective right total knee replacement. Hospital course has been uneventful to date. The patient is eating and drinking well. She is voiding. Neurovascular check is normal. Postop x-rays look excellent. ASSESSMENT: Doing well. PAST MEDICAL HISTORY: Remarkable for hypertension, hypercholesterolemia, atrial fibrillation, history of DVT x2, sleep apnea, lung cancer, obesity, osteoarthritis, history of basal cell skin cancer and seborrheic keratosis. PAST SURGICAL HISTORY: Remarkable for lower lobe lobectomy in 2013, this was on the right; partial hysterectomy, varicose vein stripping, eye surgery, cholecystectomy, left knee replacement in 06/2018. SOCIAL HISTORY: Reveals she is retired. Her has and she is , . No tobacco or alcohol use. FAMILY HISTORY: Remarkable for colon cancer, lung cancer. ALLERGIES: SULFA. PREADMISSION MEDICATIONS: Include furosemide,metoprolol, simvastatin, Coumadin, methenamine, donepezil and lithium. She will be discharged on a Coumadin dose and p.r.n. pain medication. She will try to avoid Percocet and heavy narcotics. REVIEW OF SYSTEMS: noncontributory. ASSESSMENT: Overall, doing well status post right total knee replacement. PLAN: Is to discharge to a [facility] based on family request. Case management will be available to assess KATIA. BARBIE
[2019-05-02] MEDS: ORTHO WARFARIN NOMOGRAM SCH (13:11)
[2019-05-02] MEDS: ACETAMINOPHEN 500 MG TAB PO SCH ×2 (13:41→21:52)
[2019-05-02] MEDS ORDERED: WARFARIN SOD 5 MG TAB PO SCH (16:00)
[2019-05-02] MEDS: CEFAZOLIN 2000MG 2,000 MG/15 ML SYR IV SCH ×2 (17:02→23:54)
[2019-05-02] MEDS: FERROUS GLUCONATE 324 MG TAB PO SCH (17:03)
[2019-05-02] MEDS ORDERED: SENNA 8.6 MG TAB PO SCH (21:00)
[2019-05-02] MEDS ORDERED: METHENAMINE HIPPURATE 1 GM TAB PO SCH (21:00)
[2019-05-02] MEDS ORDERED: DONEPEZIL HCL 5 MG TAB PO SCH (21:00)
[2019-05-02] MEDS: DOCUSATE SODIUM 100 MG CAP PO SCH (21:53)
[2019-05-02] MEDS: UMECLIDINIUM BROMIDE 62.5MCG/BLISTER 7 PUFFS/INHALER INH SCH (22:33)
[2019-05-03 05:10] LABS: Hematocrit (blood only) 31.6 % (37-47); Hemoglobin 10.5 g/dL (12.0-16.0); Mean Corpuscular Hgb Conc 33.2 g/dL (32-36); Mean Corpuscular Volume 93.2 fL (80-100); Platelet Count 192 K/uL (130-400); RDW Coefficient of Variation 13.7 % (11.5-14.5); RDW Standard Deviation 46.8 fL (36.4-46.3); Red Blood Count 3.39 M/uL (4.2-5.4); White Blood Count 14.89 K/uL (4.8-10.8)
[2019-05-03 05:23] LABS: INR 1.1 (0.9-1.1); Prothrombin Time 10.9 Seconds (9.0-12.0)
[2019-05-03] MEDS: KETOROLAC TROMETHAMINE 15 MG/ML VIAL IV SCH (05:37)
[2019-05-03] MEDS: ACETAMINOPHEN 500 MG TAB PO SCH ×2 (05:37→13:18)
[2019-05-03 05:41] LABS: BUN Creatinine Ratio 14.9 (10-20); Calcium 8.6 mg/dl (8.5-10.1); Creatinine Clr Calc Pharmacy 26.6 ml/min; Est GFR (African American) 28.4; Est GFR (Non-African American) 24.5; Potassium 4.4 mmol/L (3.5-5.1)
[2019-05-03] MEDS ORDERED: LEVOTHYROXINE SODIUM 88 MCG TABLET PO SCH (06:30)
--- NOTE | 2019-05-03 07:17 | Anesthesiology Progress Note ---
Date of Service May 03, 2019 Anesthesia Post Procedure Vital Signs Vital Signs: Temp Pulse Pulse Pulse Resp BP BP 05/03/19 03:46 36.4 C L 58 L 16 111/76 05/02/19 23:29 36.7 C 62 16 104/57 L 100/53 L 05/02/19 22:55 58 L 14 05/02/19 20:12 55 L 16 05/02/19 19:49 36.9 C 75 16 127/64 05/02/19 15:46 36.4 C L 52 L 16 108/62 05/02/19 13:26 50 L 16 126/73 05/02/19 12:23 36.6 C 45 L 18 140/73 05/02/19 11:20 51 L 16 113/71 05/02/19 10:50 36.4 C L 50 L 16 104/65 05/02/19 10:20 36.4 C L 58 L 16 100/66 05/02/19 09:55 36.7 C 66 16 99/51 L 05/02/19 09:45 60 16 102/48 L 05/02/19 09:39 36.9 C 81 16 108/54 L 05/02/19 07:53 61 20 102/45 L Pulse Ox 05/03/19 03:46 92 05/02/19 23:29 93 05/02/19 22:55 92 05/02/19 20:12 95 05/02/19 19:49 91 05/02/19 15:46 98 05/02/19 13:26 100 05/02/19 12:23 98 05/02/19 11:20 99 05/02/19 10:50 100 05/02/19 10:20 93 05/02/19 09:55 95 05/02/19 09:45 96 05/02/19 09:39 96 05/02/19 07:53 100 Notes Mental Status: alert / awake / arousable and participated in evaluation Nausea / Vomiting: adequately controlled Pain: adequately controlled Airway Patency, RR, SpO2: stable & adequate BP & HR: stable & adequate Hydration State: stable & adequate Neuraxial Anesthesia: sensory block is resolving Anesthetic Complications: Pt Satisfied with anesthetic care
--- NOTE | 2019-05-03 07:41 | Progress Note ---
DATE: 05/03/2019 SUBJECTIVE: Day #1 status post right total knee replacement. The patient is doing well. States she has no pain. She denies chest pain, shortness of breath, fever, chills, nausea, vomiting or headache. OBJECTIVE: VITAL SIGNS: Stable. She is afebrile. She states she feels like she is breathing better since the Spiriva was ordered. Wound dressing clean, dry and intact. Neurovascular check, femoral sciatic nerve is normal. LABORATORY WORK: Hematocrit stable at 31.6. White count is 14.89 based on steroid stress. INR is 1.1. Electrolytes are good. ASSESSMENT: Doing well status post right total knee replacement. PLAN: To discharge/transfer today. Case management to finalize location. Coumadin prior to leaving. Follow up in 2 weeks.. BARBIE
[2019-05-03] MEDS ORDERED: dexAMETHasone 10 MG in SYRINGE 0 ML IV SCH (08:00)
--- NOTE | 2019-05-03 08:51 | Orthopedic Progress Note ---
Date of Service May 03, 2019 Assessment & Plan (1) S/P total knee arthroplasty: Dressing was changed today by me. Neurovascular status was checked before and after. PT/OT today. [facility] Continue Coumadin at 4 mg daily. Recheck INR on Tuesday. Follow-up in the office in 2 weeks for staple removal Use the knee immobilizer until tomorrow morning and then discontinue Prescription for [place] 5 mg has been sent to her pharmacy. Subjective Patient was seen in her room. She denied any nausea, vomiting, chest pain, or shortness of breath. States she did well overnight. She has very little knee pain at this time. She is waiting for breakfast and then PT. Review of Systems Review of Systems: unchanged from yesterday Physical Exam Physical Exam: General: Well-developed, well-nourished, elderly white female, sitting in a chair. Alert and oriented. No acute distress. Skin: Warm and dry with fair turgor. No rashes or lesions. No ecchymosis or erythema. The patient is not diaphoretic. No abrasions. Postoperative dressings are dry. Upon removal, she has very little dried blood on her Adaptic. Expected postoperative edema. No ecchymosis. [place] are intact. No active drainage. Musculoskeletal: Patient has full terminal extension. Intact motor function to her ankle and toes. Flexion to around 60 degrees. Neurologic: Gross sensation is intact across the right leg by soft touch. Peripheral pulses are 2+. Results & Data Vital Signs (Past 12 Hours) Vital Signs Temp Pulse Pulse Resp BP BP Pulse Ox 05/03/19 08:00 17 96 05/03/19 07:37 36.6 C 46 L 16 97/61 L 96 05/03/19 03:46 36.4 C L 58 L 16 111/76 92 05/02/19 23:29 36.7 C 62 16 104/57 L 100/53 L 93 05/02/19 22:55 58 L 14 92 Laboratory Results H&H are 10.5 and 31.6. INR is 1.3. (1) S/P total knee arthroplasty Laterality: right Qualified Code(s): Z96.651 - Presence of right artificial knee joint
[2019-05-03] MEDS ORDERED: METOPROLOL SUCC 50MG EXT REL TAB PO SCH (09:00)
[2019-05-03] MEDS ORDERED: POTASSIUM CHLORIDE 20 MEQ TABCR PO SCH (09:00)
[2019-05-03] MEDS ORDERED: MULTIVITAMIN TAB PO SCH (09:00)
[2019-05-03] MEDS ORDERED: lisinopriL 5 MG TAB PO SCH (09:00)
[2019-05-03] MEDS ORDERED: LITHIUM CARBONATE SLOW REL 300 MG TAB PO SCH (09:00)
[2019-05-03] MEDS ORDERED: SIMVASTATIN 20 MG TAB PO SCH (09:00)
[2019-05-03] MEDS: DOCUSATE SODIUM 100 MG CAP PO SCH (09:40)
[2019-05-03] MEDS: UMECLIDINIUM BROMIDE 62.5MCG/BLISTER 7 PUFFS/INHALER INH SCH (09:41)
[2019-05-03] MEDS: FERROUS GLUCONATE 324 MG TAB PO SCH (09:41)
[2019-05-03] MEDS ORDERED: Nursing to Pharmacy Communication ONE ×2 (11:37→11:50)
[2019-05-03] MEDS ORDERED: WARFARIN SOD 4 MG TAB PO ONE (12:00)
[2019-05-03] MEDS: ORTHO WARFARIN NOMOGRAM SCH (13:19)
== END 2019-05-03 14:05 | disposition home or self-care (01) | DRG 470 ==
LOC: ASU 06:11 → 3E 09:49 → INTOOBSV 09:49

== ENCOUNTER 2021-12-11 18:28 | Inpatient (IN) ==
[2021-12-11] MEDS ORDERED: SODIUM CHLORIDE 0.9% 500 ML IV ONE (19:04)
[2021-12-11] MEDS ORDERED: ACETAMINOPHEN 1,000 MG/100 ML VIAL IV STA (19:04)
[2021-12-11] MEDS ORDERED: IPRATROPIUM BROMIDE/ALBUTEROL respimat INH INH STA (19:04)
[2021-12-11] MEDS ORDERED: FAMOTIDINE 20MG IV PUSH 20 MG/5 ML SYR IV STA (19:06)
[2021-12-11] MEDS ORDERED: ONDANSETRON INJ 2 MG/ML 2 ML VIAL IV STA (19:06)
--- NOTE | 2021-12-11 19:20 | Emergency Department Note ---
Impression & Plan COVID-19, COPD, moderate, Hypoxia ED Provider Note NAME: GLORIA WORLEY AGE: 81 SEX: F ARRIVES VIA: Walk-In INFORMANT: Patient ED PROVIDER(S): Toy Campbell MD CHIEF COMPLAINT: Feverish, cough, n/v/d PLAN: Disposition: Admit MEDICAL DECISION MAKING: The patient is a pleasant 81-year-old woman with a past medical history of pulmonary hypertension, recurrent UTIs, COPD/emphysema, history of lung cancer, bipolar disorder, non-small cell lung cancer, atrial flutter, DVT on warfarin who presents to the emergency department company by her daughter for evaluation of cough, congestion, feverishness, body aches, nausea and vomiting and diarrhea evolving over the past several days. She reports she is vaccinated for COVID-19 including her booster. She denies any known COVID-19 exposures. On arrival the patient is chronically ill-appearing but no acute distress, afebrile stable vital signs. She has dry mucous membranes. She has 1+ bilateral lower extremity edema. Lungs with scant intermittent wheeze and are otherwise clear. Abdomen is nontender. EKG without overt acute ischemia. CXR negative for acute cardiopulmonary process. WBC and platelets within normal limits. H/H 11.7/36.4 decreased from most recent however within prior range of values. INR 2.3, therapeutic. Chemistry without metabolic acidosis. Creatinine 1.4 within prior range of values. Electrolytes without significant abnormality. AST 57, mildly elevated nonspe cific. High-sensitivity troponin 11, within normal limits. BNP within normal limits. Procalcitonin is not significantly elevated. UA appears contaminated with only 5-10 WBCs and no bacteria. Patient's COVID-[address] of the abdomen pelvis was performed and per preliminary stat rad report demonstrates question of biliary tree dilatation without obvious obstructive process which is unlikely to be the clinically significant given the patient's history of cholecystectomy and normal bilirubin and Alkphos. Otherwise no acute findings are identified. During patient's ED observation she did have desaturation to the mid to upper 80s on room air and so was placed on nasal cannula. Given the patient's hypoxia in setting of COVID-19 infection we will proceed with admission. Patient was ordered for dexamethasone. Case was discussed with Dr. Tavarez, [facility] hospitalist, who will evaluate the patient for admission. Triage Nursing notes reviewed and agree them. Prior medical records reviewed Vital Signs: reviewed and remarkable for no significant abnormalities Differential diagnosis: Viral syndrome, otitis, pharyngitis, pneumonia, influenza, meningitis, urinary tract infection, sepsis, bacteremia, as well as other pathologies. ER treatment provided: See below. Diagnostics interpreted by me: ECG: Normal sinus rhythm, 86 bpm, no ectopy, no overt ST elevation or depression, QTC 411, QRS 82. Cardiac Monitoring: An order for continuous cardiac monitoring was placed and demonstrated Normal sinus rhythm, 86 bpm, no ectopy. Laboratory studies: See below Imaging studies: See below Consultation(s): Case was discussed with Dr. Tavarez, [facility] hospitalist, who will evaluate the patient for admission. HPI: The patient is a pleasant 81-year-old woman with a past medical history of pulmonary hypertension, recurrent UTIs, COPD/emphysema, history of lung cancer, bipolar disorder, non-small cell lung cancer, atrial flutter, DVT on warfarin who presents to the emergency department company by her daughter for evaluation of cough, congestion, feverishness, body aches, nausea and vomiting and diarrhea evolving over the past several days. She reports she is vaccinated for COVID-19 including her booster. She denies any known COVID-19 exposures. ROS: See above HPI for pertinent positives & negatives. A total of 10 systems reviewed and were otherwise negative. VITALS:See Below PHYSICAL EXAMINATION: GENERAL: Awake, alert, chronically-appearing, in no distress HENT: Normocephalic, atraumatic. Oropharynx with dry mucous membranes and otherwise unremarkable.. EYES: Normal conjunctiva. Sclera non-icteric. NECK: Supple. No nuchal rigidity. FROM. No JVD. RESPIRATORY: Clear to auscultation. CARDIAC: Regular rate, normal rhythm. Extremities warm and well perfused. Pulses equal. ABDOMEN: Soft, non-distended. No tenderness to palpation. No rebound or guarding. No masses. RECTAL: Deferred. MUSCULOSKELETAL: Chest examination reveals no tenderness. The back is symmetrical on inspection without obvious abnormality. There is no CVA tenderness to palpation. No joint edema. LOWER EXTREMITIES: Calves are equal size bilaterally and non-tender. 1+ BLE edema. No discoloration. NEURO: Normal sensorium. No sensory or motor deficits noted. SKIN: No rash or jaundice noted. Toy Campbell MD Past Med/Surg History Medical History Anemia Asthma no inhaler Atrial flutter HX OF A-FLUTTER. PT HAD CARDIOVERSION [address] JACOBO. REMAINS STABLE. Bipolar disorder (11/11/12) C. difficile colitis PT UNSURE OF EXACT DATE. DX AND TREATED AT [facility]. NO COMPLICATIONS SINCE Chronic kidney disease STAGE 3 History of DVT (deep vein thrombosis) 1ST ONE 40 YEARS AGO AFTER CHILDBIRTH, 2ND DVT FOLLOWING EXTENDED BED REST APPROX 10 YEARS AGO History of pulmonary embolism Hyperlipidemia Hypertension Hypokalemia [place] toxicity Non-small cell carcinoma of lung TUMOR EXCISION, NO CHEMO REQUIRED [facility] Obesity Pre-op evaluation Pulmonary hypertension Per 2014 echo:Moderate pulmonary hypertension suggested; estimated RVSP 56 mmHg. Septic shock PT WAS ADMITTED MAR 2018 FOR SEVERE UTI WITH SHOCK Valvular heart disease Per 2014 echo: There is mild mitral regurgitation. There is mild to moderate tricuspid regurgitation. Surgical History H/O varicose vein stripping BILATERAL LOWER EXTREMITIES History of cardioversion History of left knee replacement 07/05/2018 [facility] History of lung surgery TUMOR EXCISION, NO CHEMO REQUIRED. PT UNSURE OF DATE OF TYPE OF SURGERY History of partial hysterectomy History of phacoemulsification of cataract of both eyes with intraocular lens implantation Hx of cholecystectomy S/P lobectomy of lung RLL @[facility] 04/23/2013 S/P total knee arthroplasty Family History Sister Breast cancer Colorectal cancer Mother Colorectal cancer Diabetes Father Lung cancer Brother Prostate cancer Denies family history of Ovarian cancer Myocardial infarction Social History Smoking Status: Former smoker Tobacco Type: Cigarettes packs per day: 1; Years Smoked: 25; Cigarettes Per Day: 20; Number of Years Since Quit: 18; Second Hand Exposure: No; Hx Alcohol Use: No Hx Substance Use: No Preferred Language: Belarusian Communication Ability: Effective Visual Impairment: Limited Mold Swabber Required: No Beliefs That Will Affect Care: None marital status: / Current Living Situation: Alone current occupational status: retired How many Children do You have: 3 Feels Safe at Home: Yes Childhood Exposure to Second-Hand Smoke: Yes Dental Care, Regularly: Yes Physical Activity Frequency: Does not Exercise Seatbelt Use: sometimes Sunscreen Use: No Assistive Devices: Cane, Glasses and Walker Allergies Allergies Allergy/AdvReac Type Severity Reaction Status Date / Time Penicillins Allergy Severe THROAT Verified 10/27/21 15:26 SWELLING Sulfa (Sulfonamide Allergy Severe "PAINS IN Verified 10/27/21 15:26 Antibiotics) MY HEART" benzalkonium AdvReac Unknown Verified 10/27/21 15:26 Cephalosporins AdvReac Unknown Verified 10/27/21 15:26 oxycodone AdvReac Unresponsiv Verified 10/27/21 15:26 e sulfacetamide AdvReac Unknown Verified 10/27/21 15:26 Home Meds Home Medications Medication Instructions Recorded Confirmed lithium carbonate 300 mg 300 mg PO QAM 04/07/18 12/11/21 tablet,extended release (Lithobid) metoprolol succinate 50 mg 50 mg PO QAM 04/07/18 12/11/21 tablet,extended release 24 hr (Toprol XL) acetaminophen 500 mg capsule 1,000 mg PO Q6H PRN Pain 05/12/19 12/11/21 (Tylophen) cholecalciferol (vitamin D3) 50 2,000 unit PO QAM 05/12/19 12/11/21 mcg (2,000 unit) capsule levothyroxine 88 mcg tablet 44 mcg PO .QSUNDAY 12/11/21 12/11/21 levothyroxine 88 mcg tablet 88 mcg PO [id number] 12/11/21 12/11/21 (Synthroid) warfarin 4 mg tablet 4 mg PO DIRECTED 12/11/21 12/11/21 Previous Rx's Medication Instructions Recorded mecobalamin (vitamin B12) 1,000 1,000 mcg sublingual DAILY #30 tabs 07/28/20 mcg disintegrating tablet,sublingual betamethasone dipropionate 0.05 % 1 applic topical BID PRN skin 01/28/21 topical cream irritation #15 grams donepezil 5 mg tablet (Aricept) 5 mg PO HS #90 tabs 07/30/21 furosemide 20 mg tablet 20 mg PO Q OTHER DAY #30 tabs 07/30/21 lisinopril 5 mg tablet (Zestril) 5 mg PO QAM #90 tabs 07/30/21 methenamine hippurate 1 gram 1 g PO QPM #90 tabs 10/27/21 tablet (Hiprex) Results & Data (ED) Vital Signs Vital Signs - 24 hr 12/11/21 18:35 12/11/21 19:28 12/11/21 20:10 Temperature 37.1 C Temperature Source Temporal Artery Scan Pulse Rate 96 H Pulse Rate [Apical] 76 Pulse Rhythm [Apical] Regular Respiratory Rate 20 24 Respiratory Effort / Characteristics Non-Labored Short of Breath Respiratory Depth Normal Shallow Blood Pressure 118/63 Blood Pressure [Left Arm] Blood Pressure [Right Arm] 114/68 Blood Pressure Mean 81 Blood Pressure Mean [Left Arm] Blood Pressure Mean [Right Arm] 83 Blood Pressure Position [Left Arm] Blood Pressure Position [Right Arm] Sitting Pulse Oximetry 92 94 99 Oxygen Delivery Method Room Air Room Air Nasal Cannula Oxygen Flow Rate 2 Sepsis Recent Fever Within 48 Hours No Sepsis New/Unexplained Change in Mental Status N/A Sepsis Action Taken by Nursing No Action Required Oxygen Flow Rate - Titration Pulse Oximetry Post Tiitration 12/11/21 20:00 12/11/21 21:14 12/11/21 21:30 Temperature Temperature Source Pulse Rate Pulse Rate [Apical] 72 Pulse Rhythm [Apical] Regular Respiratory Rate 26 H Respiratory Effort / Characteristics Respiratory Depth Normal Blood Pressure Blood Pressure [Left Arm] Blood Pressure [Right Arm] 101/57 L Blood Pressure Mean Blood Pressure Mean [Left Arm] Blood Pressure Mean [Right Arm] 71 Blood Pressure Position [Left Arm] Blood Pressure Position [Right Arm] Pulse Oximetry 84 L 88 L 93 Oxygen Delivery Method Room Air Nasal Cannula Room Air Nasal Cannula Oxygen Flow Rate 0 2 Sepsis Recent Fever Within 48 Hours Sepsis New/Unexplained Change in Mental Status Sepsis Action Taken by Nursing Oxygen Flow Rate - Titration 2 Pulse Oximetry Post Tiitration 97 12/11/21 22:10 Temperature Temperature Source Pulse Rate Pulse Rate [Apical] 71 Pulse Rhythm [Apical] Regular Respiratory Rate 22 Respiratory Effort / Characteristics Respiratory Depth Normal Blood Pressure Blood Pressure [Left Arm] 81/50 L Blood Pressure [Right Arm] Blood Pressure Mean Blood Pressure Mean [Left Arm] 60 Blood Pressure Mean [Right Arm] Blood Pressure Position [Left Arm] Lying Blood Pressure Position [Right Arm] Pulse Oximetry 97 Oxygen Delivery Method Nasal Cannula Oxygen Flow Rate 2 Sepsis Recent Fever Within 48 Hours Sepsis New/Unexplained Change in Mental Status Sepsis Action Taken by Nursing Oxygen Flow Rate - Titration Pulse Oximetry Post Tiitration Laboratory Data Attestation: I reviewed the patient's lab results. Result diagrams: 12/11/21 19:45 12/11/21 19:45 Lab Results 12/11/21 12/11/21 12/11/21 Range/Units 19:45 19:45 19:45 WBC 9.93 (4.8-10.8) K/ul RBC 3.91 L (3.93-5.22) M/uL Hgb 11.7 L (12.0-16.0) g/dl Hct 36.4 (34.1-44.9) % MCV 93.1 (80.0-100.0) fL MCH 29.9 (25.0-34.0) pg MCHC 32.1 (32.0-36.0) g/dL RDW Std Deviation 49.7 H (36.4-46.3) fL RDW Coeff of Kim 14.5 (11.5-14.5) % Plt Count 191 (130-400) K/uL MPV 11.1 (9.4-12.3) fL Immature Gran % (Auto) 0.5 % Neut % (Auto) 78.7 % Lymph % (Auto) 10.3 % [place] % (Auto) 9.3 % Eos % (Auto) 0.5 % Baso % (Auto) 0.7 % Neut # (Auto) 7.82 H (1.4-6.5) K/uL Lymph # (Auto) 1.02 L (1.2-3.4) K/uL [place] # (Auto) 0.92 H (0.24-0.82) K/uL Eos # (Auto) 0.05 (0-0.50) K/uL Baso # (Auto) 0.07 (0-0.2) K/uL Immature Gran # (Auto) 0.05 H (0.00-0.02) K/uL PT 23.7 H (9.0-12.0) Seconds INR 2.3 H (0.9-1.1) Sodium 133 L (136-145) mmol/L Potassium 3.8 (3.5-5.1) mmol/L Chloride 101 (98-107) mmol/L Carbon Dioxide 24 (21-32) mmol/L Anion Gap 8 (3-11) BUN 19 (6-23) mg/dl Creatinine 1.42 H (0.6-1.2) mg/dl Est Cr Clr Drug Dosing 35.5 ml/min Est GFR ( Amer) 39.8 ml/min Est GFR (Non-Af Amer) 34.3 ml/min BUN/Creatinine Ratio 13.4 (10-20) Glucose 137 H (70-99(Fasting)) mg/dl Calcium 9.8 (8.5-10.1) mg/dl Phosphorus 3.0 (2.5-4.9) mg/dl Magnesium 1.7 (1.7-2.4) mg/dl Total Bilirubin 0.5 (0.2-1.0) mg/dl AST 57 H (13-39) U/L ALT 40 (7-52) U/L Alkaline Phosphatase 94 (34-104) U/L Troponin I High Sens 11.0 (0-14) pg/ml B-Natriuretic Peptide (0-100) pg/ml Total Protein 7.8 (6.0-8.3) gm/dl Albumin 3.8 (3.4-5.0) gm/dl Globulin 4.0 (2.5-4.0) gm/dl Albumin/Globulin Ratio 1.0 (0.9-2) Lipase 16 (11-82) U/L Urine Color Urine Appearance (Clear) Urine pH (4.5-7.5) Ur Specific [place] (1.000-1.030) Urine Protein (Negative) Urine Glucose (UA) (Negative) Urine Ketones (Negative) Urine Blood (Negative) Urine Nitrite (Negative) Urine Bilirubin (Negative) Urine Urobilinogen (Negative) Ur Leukocyte Esterase (Negative) Urine WBC (Auto) (0-5) /hpf Urine RBC (Auto) (0-4) /hpf U Hyaline Cast (Auto) (0-5) /lpf U Epithel Cells (Auto) (0-5) /lpf Urine Bacteria (Auto) (Negative) SARS-CoV-2 (PCR) (Negative) 12/11/21 12/11/21 12/11/21 Range/Units 19:45 19:45 19:55 WBC (4.8-10.8) K/ul RBC (3.93-5.22) M/uL Hgb (12.0-16.0) g/dl Hct (34.1-44.9) % MCV (80.0-100.0) fL MCH (25.0-34.0) pg MCHC (32.0-36.0) g/dL RDW Std Deviation (36.4-46.3) fL RDW Coeff of Kim (11.5-14.5) % Plt Count (130-400) K/uL MPV (9.4-12.3) fL Immature Gran % (Auto) % Neut % (Auto) % Lymph % (Auto) % [place] % (Auto) % Eos % (Auto) % Baso % (Auto) % Neut # (Auto) (1.4-6.5) K/uL Lymph # (Auto) (1.2-3.4) K/uL [place] # (Auto) (0.24-0.82) K/uL Eos # (Auto) (0-0.50) K/uL Baso # (Auto) (0-0.2) K/uL Immature Gran # (Auto) (0.00-0.02) K/uL PT (9.0-12.0) Seconds INR (0.9-1.1) Sodium (136-145) mmol/L Potassium (3.5-5.1) mmol/L Chloride (98-107) mmol/L Carbon Dioxide (21-32) mmol/L Anion Gap (3-11) BUN (6-23) mg/dl Creatinine (0.6-1.2) mg/dl Est Cr Clr Drug Dosing ml/min Est GFR ( Amer) ml/min Est GFR (Non-Af Amer) ml/min BUN/Creatinine Ratio (10-20) Glucose (70-99(Fasting)) mg/dl Calcium (8.5-10.1) mg/dl Phosphorus (2.5-4.9) mg/dl Magnesium (1.7-2.4) mg/dl Total Bilirubin (0.2-1.0) mg/dl AST (13-39) U/L ALT (7-52) U/L Alkaline Phosphatase (34-104) U/L Troponin I High Sens (0-14) pg/ml B-Natriuretic Peptide 54 (0-100) pg/ml Total Protein (6.0-8.3) gm/dl Albumin (3.4-5.0) gm/dl Globulin (2.5-4.0) gm/dl Albumin/Globulin Ratio (0.9-2) Lipase (11-82) U/L Urine Color Yellow Urine Appearance Clear (Clear) Urine pH 6.0 (4.5-7.5) Ur Specific [place] 1.009 (1.000-1.030) Urine Protein Trace H (Negative) Urine Glucose (UA) Negative (Negative) Urine Ketones Negative (Negative) Urine Blood Trace H (Negative) Urine Nitrite Negative (Negative) Urine Bilirubin Negative (Negative) Urine Urobilinogen Negative (Negative) Ur Leukocyte Esterase 1+ H (Negative) Urine WBC (Auto) 5-10 H (0-5) /hpf Urine RBC (Auto) 0-4 (0-4) /hpf U Hyaline Cast (Auto) 1-5 (0-5) /lpf U Epithel Cells (Auto) 10-20 H (0-5) /lpf Urine Bacteria (Auto) Negative (Negative) SARS-CoV-2 (PCR) POSITIVE A* (Negative) Administered Medications Albuterol (Ipratropium Pfeifer/Albuterol Respimat Inh) 2 puffs INH NOW STA Stop: 12/11/21 19:05 Last Admin: 12/11/21 19:43 Dose: 2 puffs Documented By: EAGLE Dexamethasone Sodium Phosphate (DexamethasonePf 10 Mg/Ml Vial) 10 mg IV NOW ONE Stop: 12/11/21 21:27 Last Admin: 12/11/21 22:20 Dose: 10 mg Documented By: RY Sodium Chloride (Nss) 500 mls @ 999 mls/hr IV .Q31M ONE Stop: 12/11/21 19:34 Last Infusion: 12/11/21 23:32 Dose: 0 mls/hr Documented By: Admin: 12/11/21 19:42 Dose: 999 mls/hr Documented By: EAGLE Acetaminophen (Ofirmev) 1,000 mg in 100 mls @ 400 mls/hr IV NOW STA Stop: 12/11/21 19:18 Last Infusion: 12/11/21 23:45 Dose: 0 mls/hr Documented By: Admin: 12/11/21 19:41 Dose: 400 mls/hr Documented By: EAGLE Famotidine (Pepcid 20mg Iv Push) 20 mg in 5 mls @ 2.5 mls/min IV NOW STA Stop: 12/11/21 19:07 Last Admin: 12/11/21 19:42 Dose: 2.5 mls/min Documented By: EAGLE Lactated Ringer's (Lr) 500 mls @ 999 mls/hr IV .Q31M STA Stop: 12/12/21 00:29 Last Infusion: 12/12/21 00:46 Dose: 0 mls/hr Documented By: Admin: 12/12/21 00:06 Dose: 999 mls/hr Documented By: TIN Lactated Ringer's (Lr) 1,000 mls @ 125 mls/hr IV .Q8H SHEEBA Stop: 12/12/21 08:57 Last Admin: 12/12/21 02:09 Dose: 125 mls/hr Documented By: LOUANN Ioversol (Optiray 300 100ml) 87 ml IV ONCE ONE Stop: 12/11/21 21:29 Last Admin: 12/11/21 21:28 Dose: 87 ml Documented By: MADI Ondansetron HCl (Ondansetron Inj 2 Mg/Ml 2 Ml Vial) 4 mg IV NOW STA Stop: 12/11/21 19:07 Last Admin: 12/11/21 19:41 Dose: 4 mg Documented By: EAGLE Discontinued Medications Guaifenesin (Guaifenesin 600 Mg Tabcr) 600 mg PO Q12 SHEEBA Stop: 01/10/22 20:59 Last Admin: 12/11/21 22:20 Dose: 600 mg Documented By: RY Lactated Ringer's (Lr) 1,000 mls @ 125 mls/hr IV .Q8H SHEEBA Stop: 12/12/21 08:29 Last Infusion: 12/12/21 02:53 Dose: 0 mls/hr Documented By: Admin: 12/12/21 00:46 Dose: 125 mls/hr Documented By: DUANE Imaging Data Radiologist's Impression: Chest X-Ray 12/11/21 19:02 XR chest 1V portable CLINICAL HISTORY: Atypical chest pain. COMPARISON STUDY: Chest CT July 08, 2018. Chest radiograph April 05, 2019. FINDINGS: Emphysema is better depicted on prior chest CT. Lung volumes are normal. Lungs are clear. There is no pneumothorax or pleural effusion. Stable cardiomegaly. Mediastinal contours are normal. There is no evidence for pulmonary edema. IMPRESSION: No acute cardiopulmonary findings. No change in appearance of the chest. ACT 112: Negative or not required by law. Electronically signed by: Scott Obregon M.D. 12/11/2021 8:31 PM [facility] Preliminary Findings Only See Final Report For Complete Findings CT ABDOMEN & PELVIS With Contrast: Lung bases are clear. Heart is large. Liver intact. Gallbladder removed. Intrahepatic duct dilation. The common duct is 1.4 cm. Pancreas, spleen and adrenals are intact. Left kidney scarring. Right kidney cysts. Bladder unremarkable uterus removed. Diverticulosis. No adenopathy, free fluid or free air. Atherosclerosis. 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 No hemorrhage. Degenerative changes of the spine. Impression: Biliary tree dilation without obvious obstructive process. Please correlate with lab values. Radiologist: Geoffrey Billings M.D. Discharge Plan Visit Data Chief Complaint: Cough Stated Complaint: FATIGUE, COUGH, SORE MUSCLES, POTENTIAL COVID ED Provider: Toy Campbell Discharge Problem: COVID-19, COPD, moderate, Hypoxia Patient Disposition: Admitted As Inpatient Discharge Instructions Interventions: ED Discharge Assessment Last Done: 12/12/21 01:17
[2021-12-11 20:01] LABS: Basophils # (auto) 0.07 K/uL (0-0.2); Basophils % (auto) 0.7 %; Eosinophils # (auto) 0.05 K/uL (0-0.50); Eosinophils % (auto) 0.5 %; Hematocrit (blood only) 36.4 % (34.1-44.9); Hemoglobin 11.7 g/dl (12.0-16.0); Immature Granulocytes # (auto) 0.05 K/uL (0.00-0.02); Immature Granulocytes % (auto) 0.5 %; Lymphocytes # (auto) 1.02 K/uL (1.2-3.4); Lymphocytes % (auto) 10.3 %; Mean Corpuscular Hemoglobin 29.9 pg (25.0-34.0); Mean Corpuscular Hgb Conc 32.1 g/dL (32.0-36.0); Mean Corpuscular Volume 93.1 fL (80.0-100.0); Mean Platelet Volume 11.1 fL (9.4-12.3); Monocytes # (auto) 0.92 K/uL (0.24-0.82); Monocytes % (auto) 9.3 %; Neutrophils # (auto) 7.82 K/uL (1.4-6.5); Neutrophils % (auto) 78.7 %; Platelet Count 191 K/uL (130-400); RDW Coefficient of Variation 14.5 % (11.5-14.5); RDW Standard Deviation 49.7 fL (36.4-46.3); Red Blood Count 3.91 M/uL (3.93-5.22); White Blood Count 9.93 K/ul (4.8-10.8)
[2021-12-11 20:11] LABS: INR 2.3 (0.9-1.1); Prothrombin Time 23.7 Seconds (9.0-12.0)
[2021-12-11 20:30] LABS: Appearance Urine Clear (Clear); Bacteria Urine Automated Negative (Negative); Bilirubin Urine Negative (Negative); Blood Urine Trace (Negative); Color Urine Yellow; Glucose Urine UA Negative (Negative); Ketones Urine Negative (Negative); Leukocyte Esterase Urine 1+ (Negative); Nitrite Urine Negative (Negative); Protein Urine Trace (Negative); RBC Urine Automated 0-4 /hpf (0-4); Specific Gravity Urine 1.009 (1.000-1.030); Urobilinogen Urine Negative (Negative)
--- NOTE | 2021-12-11 20:32 | XRay Report ---
XR chest 1V portable CLINICAL HISTORY: Atypical chest pain. COMPARISON STUDY: Chest CT July 08, 2018. Chest radiograph April 05, 2019. FINDINGS: Emphysema is better depicted on prior chest CT. Lung volumes are normal. Lungs are clear. T here is no pneumothorax or pleural effusion. Stable cardiomegaly. Mediastinal contours are normal. Th ere is no evidence for pulmonary edema. IMPRESSION: No acute cardiopulmonary findings. No change in appearance of the chest. ACT 112: Negative or not required by law. Electronically signed by: Scott Obregon M.D. 12/11/2021 8:31 PM
[2021-12-11 20:37] LABS: Albumin Level 3.8 gm/dl (3.4-5.0); BUN Creatinine Ratio 13.4 (10-20); Bilirubin,Total 0.5 mg/dl (0.2-1.0); Calcium 9.8 mg/dl (8.5-10.1); Creatinine Clr Calc Pharmacy 35.5 ml/min; Est GFR (African American) 39.8 ml/min; Est GFR (Non-African American) 34.3 ml/min; Magnesium 1.7 mg/dl (1.7-2.4); Potassium 3.8 mmol/L (3.5-5.1); Total Protein 7.8 gm/dl (6.0-8.3)
[2021-12-11] MEDS ORDERED: guaiFENesin 600 MG TABCR PO SCH (21:00)
[2021-12-11] MEDS ORDERED: dexAMETHasone**PF** 10 MG/ML VIAL IV ONE (21:26)
[2021-12-11] MEDS ORDERED: OPTIRAY 300 100mL IV ONE (21:28)
--- NOTE | 2021-12-11 22:12 | History & Physical Report ---
Date of Service December 11, 2021 Assessment & Plan (1) COVID-19: Plan: 81yo female presenting with three days of back pain, productive cough, congestion, weakness and fatigue. Patient having difficulty ambulating in her home. In the ER she is afebrile, episode of hypoxia to 84% on room air. She does have moderate COPD but does not use supplemental O2 at home. She is vaccinated against Covid with 2 + booster. -Admit to PCU -Maintain isolation precautions -Check CRP, Ferritin, LDH and Procalcitonin -Continue Dexamethasone 6mg IV daily -Zofran PRN nausea -Tylenol PRN pain or fever -Mucinex PRN -Albuterol PRN (2) Hypotension: Plan: Patient with low blood pressure in the ER, responsive to IVF. Given NSS x 500ml bolus, LR x 500mL bolus and LR at 125mL/hr. 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 She has been on Coumadin for years - 4mg po daily. INR is therapeutic at 2.3 -Continue Coumadin 4mg po daily -INR qAM (4) Diarrhea: Plan: Patient with watery diarrhea prior to arrival. Has history of c. diff. -GI panel requested by ER -IVF and electrolyte repletion as needed -Monitor I/Os (5) Hypothyroidism: Plan: Chronic. Stable - TSH=4.48 on 08/13/21 -Continue Synthroid at home dosing (88mcg 6x weekly with 44mcg on Tuesday) (6) Hypertension: Plan: Patient with low blood pressure in the ER most likely secondary to volume contraction -Hold antihypertensive agents for now - Lisinopril and Metoprolol -Hold Lasix -Monitor BP (7) Atrial flutter, paroxysmal: Plan: Presently in NSR. Anticoagulated with Coumadin -Telemetry monitoring -Holding Metoprolol in setting of borderline blood pressures -Continue Coumadin (8) DM type 2 (diabetes mellitus, type 2): Plan: Diet controlled. Was previously on Metformin which was discontinued due to worsening chronic diarrhea -Check blood sugars while on steroids (9) Bipolar disorder: Plan: Stable. Patient follows with Psychiatry. -Continue [place] (last level on 11/20/20 = 0.7) -Check level (10) Recurrent UTI: Plan: Patient with recurrent UTIs. She follows with Urology - last seen 10/27/21 -Continue methenamine -UA today does not appear to be infected. No complaints of dysuria/frequency or urgency History of Present Illness Chief Complaint: Covid-19 Primary Care Provider: Kristel Morfin MD Serenity Simmons is an 81yo female with history of Atrial Fibrillation, HTN, HLP, Bipolar disorder and non-small cell lung cancer presenting with three days of productive cough, congestion, fever, aches, nausea, vomiting and diarrhea. Also with mid back pain. She has been very weak and fatigued. Decreased oral intake as well. Patient found to be POSITIVE for Covid-19 infection. Patient is vaccinated against Covid-19. She has not had the illness before to her knowledge. Daughter in the ER and assists with history. In the ER she is afebrile, blood pressure initially appropriate but with several low readings - 80's / 50's. ER Course: Tylenol, Zofran, NSS 500mL, LR 500mL, Dexamethasone 10mg IV, Guaifenesin 600mg po BID, ALbuterol 2puffs, Pepcid 20mg IV Allergies Allergy/AdvReac Type Severity Reaction Status Date / Time Penicillins Allergy Severe THROAT Verified 10/27/21 15:26 SWELLING Sulfa (Sulfonamide Allergy Severe "PAINS IN Verified 10/27/21 15:26 Antibiotics) MY HEART" benzalkonium AdvReac Unknown Verified 10/27/21 15:26 Cephalosporins AdvReac Unknown Verified 10/27/21 15:26 oxycodone AdvReac Unresponsiv Verified 10/27/21 15:26 e sulfacetamide AdvReac Unknown Verified 10/27/21 15:26 Home Medications Medication Instructions Recorded Confirmed Type lithium carbonate 300 mg 300 mg PO QAM 04/07/18 12/11/21 History tablet,extended release (Lithobid) metoprolol succinate 50 mg 50 mg PO QAM 04/07/18 12/11/21 History tablet,extended release 24 hr (Toprol XL) acetaminophen 500 mg capsule 1,000 mg PO Q6H PRN Pain 05/12/19 12/11/21 History (Tylophen) cholecalciferol (vitamin D3) 50 2,000 unit PO QAM 05/12/19 12/11/21 History mcg (2,000 unit) capsule mecobalamin (vitamin B12) 1,000 1,000 mcg sublingual DAILY #30 tabs 07/28/20 12/11/21 Rx mcg disintegrating tablet,sublingual betamethasone dipropionate 0.05 % 1 applic topical BID PRN skin 01/28/21 12/11/21 Rx topical cream irritation #15 grams donepezil 5 mg tablet (Aricept) 5 mg PO HS #90 tabs 07/30/21 12/11/21 Rx furosemide 20 mg tablet 20 mg PO Q OTHER DAY #30 tabs 07/30/21 12/11/21 Rx lisinopril 5 mg tablet (Zestril) 5 mg PO QAM #90 tabs 07/30/21 12/11/21 Rx methenamine hippurate 1 gram 1 g PO QPM #90 tabs 10/27/21 12/11/21 Rx tablet (Hiprex) levothyroxine 88 mcg tablet 44 mcg PO .QSUNDAY 12/11/21 12/11/21 History levothyroxine 88 mcg tablet 88 mcg PO 6XWK 12/11/21 12/11/21 History (Synthroid) warfarin 4 mg tablet 4 mg PO DIRECTED 12/11/21 12/11/21 History Past Med/Surg History Medical History Anemia Asthma Atrial flutter Bipolar disorder (11/11/12) C. difficile colitis Chronic kidney disease History of DVT (deep vein thrombosis) History of pulmonary embolism Hyperlipidemia Hypertension Hypokalemia [place] toxicity Non-small cell carcinoma of lung Obesity Pre-op evaluation Pulmonary hypertension Septic shock Valvular heart disease Surgical History H/O varicose vein stripping History of cardioversion History of left knee replacement History of lung surgery History of partial hysterectomy History of phacoemulsification of cataract of both eyes with intraocular lens implantation Hx of cholecystectomy S/P lobectomy of lung S/P total knee arthroplasty Family History Sister Breast cancer Colorectal cancer Mother Colorectal cancer Diabetes Father Lung cancer Brother Prostate cancer Denies family history of Ovarian cancer Myocardial infarction Social History Smoking Status: Former smoker Tobacco Type: Cigarettes packs per day: 1; Years Smoked: 25; Cigarettes Per Day: 20; Number of Years Since Quit: 18; Second Hand Exposure: No; Hx Alcohol Use: No Hx Substance Use: No Preferred Language: [place] Communication Ability: Effective Visual Impairment: Limited Machine Tech Required: No Beliefs That Will Affect Care: None marital status: / Current Living Situation: Alone current occupational status: retired How many Children do You have: 3 Feels Safe at Home: Yes Childhood Exposure to Second-Hand Smoke: Yes Dental Care, Regularly: Yes Physical Activity Frequency: Does not Exercise Seatbelt Use: sometimes Sunscreen Use: No Assistive Devices: Walker Review of Systems Review of Systems: All systems reviewed & are unremarkable except as noted in HPI & below Physical Exam Physical Exam: General: patient resting comfortably, NAD, non-toxic in appearance, AA&O x 4 Skin: warm, dry, intact, no rashes or lesions HEENT: NC/AT, PERRL, EOMI, anicteric sclera, conjunctiva without injection, external ear normal to inspection and nontender, nares patent, slightly dry mucus membranes, dentition intact, no oropharyngeal lesions, neck supple, trachea midline, no LAD, no thyromegaly, no JVD Heart: +S1/S2, regular, no m/r/g Lungs: equal air entry bilaterally, no rales/rhonchi/wheezes Abd: +BS, soft, NT/ND, no masses/organomegaly/ascites Ext: warm, 2+ pulses in UE/LE bilaterally, no clubbing/cyanosis or edema Neuro: nonfocal, patient AA&O x 4, speech intact, no facial droop, moving all extremities on command with equal strength 5/5 Results & Data Results & Data ([facility]) Vital Signs (Past 12 Hours) Vital Signs Temp Pulse Pulse Resp BP BP Pulse Ox 12/11/21 21:30 72 26 H 101/57 L 93 12/11/21 21:14 88 L 12/11/21 20:00 84 L 12/11/21 20:10 76 24 114/68 99 12/11/21 19:28 94 12/11/21 18:35 37.1 C 96 H 20 118/63 92 O2 Del Method O2 Flow Rate 12/11/21 21:30 Nasal Cannula 2 12/11/21 21:14 Room Air 12/11/21 20:00 Room Air, Nasal Cannula 0 12/11/21 20:10 Nasal Cannula 2 12/11/21 19:28 Room Air 12/11/21 18:35 Room Air Laboratory Results Laboratory Results WBC 9.93 K/ul (4.8-10.8) 12/11/21 19:45 RBC 3.91 M/uL (3.93-5.22) L 12/11/21 19:45 Hgb 11.7 g/dl (12.0-16.0) L 12/11/21 19:45 Hct 36.4 % (34.1-44.9) 12/11/21 19:45 MCV 93.1 fL (80.0-100.0) 12/11/21 19:45 MCH 29.9 pg (25.0-34.0) 12/11/21 19:45 MCHC 32.1 g/dL (32.0-36.0) 12/11/21 19:45 RDW Std Deviation 49.7 fL (36.4-46.3) H 12/11/21 19:45 RDW Coeff of Kim 14.5 % (11.5-14.5) 12/11/21 19:45 Plt Count 191 K/uL (130-400) 12/11/21 19:45 MPV 11.1 fL (9.4-12.3) 12/11/21 19:45 Immature Gran % (Auto) 0.5 % 12/11/21 19:45 Neut % (Auto) 78.7 % 12/11/21 19:45 Lymph % (Auto) 10.3 % 12/11/21 19:45 Richardson % (Auto) 9.3 % 12/11/21 19:45 Eos % (Auto) 0.5 % 12/11/21 19:45 Baso % (Auto) 0.7 % 12/11/21 19:45 Neut # (Auto) 7.82 K/uL (1.4-6.5) H 12/11/21 19:45 Lymph # (Auto) 1.02 K/uL (1.2-3.4) L 12/11/21 19:45 Richardson # (Auto) 0.92 K/uL (0.24-0.82) H 12/11/21 19:45 Eos # (Auto) 0.05 K/uL (0-0.50) 12/11/21 19:45 Baso # (Auto) 0.07 K/uL (0-0.2) 12/11/21 19:45 Immature Gran # (Auto) 0.05 K/uL (0.00-0.02) H 12/11/21 19:45 PT 23.7 Seconds (9.0-12.0) H 12/11/21 19:45 INR 2.3 (0.9-1.1) H 12/11/21 19:45 Sodium 133 mmol/L (136-145) L 12/11/21 19:45 Potassium 3.8 mmol/L (3.5-5.1) 12/11/21 19:45 Chloride 101 mmol/L (98-107) 12/11/21 19:45 Carbon Dioxide 24 mmol/L (21-32) 12/11/21 19:45 Anion Gap 8 (3-11) 12/11/21 19:45 BUN 19 mg/dl (6-23) 12/11/21 19:45 Creatinine 1.42 mg/dl (0.6-1.2) H 12/11/21 19:45 Est Cr Clr Drug Dosing 35.5 ml/min 12/11/21 19:45 Est GFR ( Amer) 39.8 ml/min 12/11/21 19:45 Est GFR (Non-Af Amer) 34.3 ml/min 12/11/21 19:45 BUN/Creatinine Ratio 13.4 (10-20) 12/11/21 19:45 Glucose 137 mg/dl (70-99(Fasting)) H 12/11/21 19:45 Calcium 9.8 mg/dl (8.5-10.1) 12/11/21 19:45 Phosphorus 3.0 mg/dl (2.5-4.9) 12/11/21 19:45 Magnesium 1.7 mg/dl (1.7-2.4) 12/11/21 19:45 Total Bilirubin 0.5 mg/dl (0.2-1.0) 12/11/21 19:45 AST 57 U/L (13-39) H 12/11/21 19:45 ALT 40 U/L (7-52) 12/11/21 19:45 Alkaline Phosphatase 94 U/L (34-104) 12/11/21 19:45 Troponin I High Sens 11.0 pg/ml (0-14) 12/11/21 19:45 B-Natriuretic Peptide 54 pg/ml (0-100) 12/11/21 19:45 Total Protein 7.8 gm/dl (6.0-8.3) 12/11/21 19:45 Albumin 3.8 gm/dl (3.4-5.0) 12/11/21 19:45 Globulin 4.0 gm/dl (2.5-4.0) 12/11/21 19:45 Albumin/Globulin Ratio 1.0 (0.9-2) 12/11/21 19:45 Lipase 16 U/L (11-82) 12/11/21 19:45 Urine Color Yellow 12/11/21 19:55 Urine Appearance Clear (Clear) 12/11/21 19:55 Urine pH 6.0 (4.5-7.5) 12/11/21 19:55 Ur Specific [place] 1.009 (1.000-1.030) 12/11/21 19:55 Urine Protein Trace (Negative) H 12/11/21 19:55 Urine Glucose (UA) Negative (Negative) 12/11/21 19:55 Urine Ketones Negative (Negative) 12/11/21 19:55 Urine Blood Trace (Negative) H 12/11/21 19:55 Urine Nitrite Negative (Negative) 12/11/21 19:55 Urine Bilirubin Negative (Negative) 12/11/21 19:55 Urine Urobilinogen Negative (Negative) 12/11/21 19:55 Ur Leukocyte Esterase 1+ (Negative) H 12/11/21 19:55 Urine WBC (Auto) 5-10 /hpf (0-5) H 12/11/21 19:55 Urine RBC (Auto) 0-4 /hpf (0-4) 12/11/21 19:55 U Hyaline Cast (Auto) 1-5 /lpf (0-5) 12/11/21 19:55 U Epithel Cells (Auto) 10-20 /lpf (0-5) H 12/11/21 19:55 Urine Bacteria (Auto) Negative (Negative) 12/11/21 19:55 SARS-CoV-2 (PCR) POSITIVE (Negative) A* 12/11/21 19:45 Impressions Chest X-Ray 12/11/21 19:02 XR chest 1V portable CLINICAL HISTORY: Atypical chest pain. COMPARISON STUDY: Chest CT July 08, 2018. Chest radiograph April 05, 2019. FINDINGS: Emphysema is better depicted on prior chest CT. Lung volumes are normal. Lungs are clear. There is no pneumothorax or pleural effusion. Stable cardiomegaly. Mediastinal contours are normal. There is no evidence for pulmonary edema. IMPRESSION: No acute cardiopulmonary findings. No change in appearance of the chest. ACT 112: Negative or not required by law. Electronically signed by: Scott Obregon M.D. 12/11/2021 8:[address] Abdomen and Pelvis with contrast - lung bases are clear. Heart is large. Liver intact. Gallbladder removed. Intrahepatic duct dilatation. The CBD is 1.4 cm. Pancreas, spleen and adrenals are intact. Left kidney scarring. Right kidney cysts. Bladder unremarkable uterus removed. Diverticulosis. No adenopathy, free fluid or free air. Atherosclerosis. Infrarenal abdominal aorta aneurysm measuring 3.3cm. No hemorrhage. Degenerative changes of the spine. Impression: Biliary tree dilation without obvious obstructive process. Please correlate with lab values. ECG Additional Comments: EKG with low voltage, sinus rhythm, no acute ischemic changes, EQ=719, QRS=82, DIz=457 Code Status & VTE Plan VTE Prophylaxis Plan VTE Prophylaxis will be ordered: Yes PG Care Time/CCT Total # of Minutes Spent Total Time Spent with Patient: Total time spent is greater than 50% in coordination of care (as documented) at patient's floor/unit and/or counseling patient: Coding Level of Care Code 64311 Initial Inpt Care Lvl 3 Diagnoses COVID-19 U07.1 Hypotension I95.9 History of pulmonary embolism Z86.711 Diarrhea R19.7 Hypothyroidism E03.9 Hypertension I10 Atrial flutter, paroxysmal I48.92 DM type 2 (diabetes mellitus, type 2) E11.9 Bipolar disorder F31.9 Recurrent UTI N39.0
[2021-12-11] MEDS ORDERED: LACTATED RINGER'S 500 ML IV STA (23:59)
[2021-12-12] MEDS ORDERED: LACTATED RINGER'S 1,000 ML IV SCH ×2 (00:30→00:58)
[2021-12-12] MEDS ORDERED: ALBUTEROL HFA 8 GM INHALER INH PRN (00:58)
[2021-12-12] MEDS ORDERED: GLUCOSE 40% GEL 15 GM TUBE PO PRN (00:58)
[2021-12-12] MEDS ORDERED: DEXTROSE 50% 50 ML SYRINGE IV PRN (00:58)
[2021-12-12] MEDS ORDERED: GLUCAGON FOR INJ 1 MG VIAL SQ PRN (00:58)
[2021-12-12] MEDS ORDERED: ACETAMINOPHEN 325 MG TAB PO PRN (00:58)
[2021-12-12] MEDS ORDERED: GLUCOSE 10 TAB/TUBE PO PRN (00:58)
[2021-12-12] MEDS ORDERED: ONDANSETRON INJ 2 MG/ML 2 ML VIAL IV PRN (00:58)
[2021-12-12] MEDS ORDERED: CARBOHYDRATES FOR HYPOGLYCEMIA PO PRN (00:58)
[2021-12-12 02:29] LABS: Ferritin 225.4 ng/ml (8-388)
[2021-12-12 02:51] LABS: C Reactive Protein 4.46 mg/dl (0-0.5)
[2021-12-12] MEDS ORDERED: LEVOTHYROXINE SODIUM 88 MCG TABLET PO SCH (06:30)
--- NOTE | 2021-12-12 06:36 | CT Scan Report ---
CT SCAN OF THE ABDOMEN AND PELVIS WITH IV CONTRAST CLINICAL HISTORY: Generalized abdominal pain. Nausea and vomiting. Diarrhea. COMPARISON STUDY: Abdominal CT dated 11/24/2015. TECHNIQUE: Following the IV administration of 87 cc of Optiray 300, CT scan of the abdomen and pelvi s is performed from the lung bases to the proximal femora. Images are reviewed in the axial, sagittal , and coronal planes. IV contrast was administered without complication. A dose lowering technique wa s utilized adhering to the principles of ALARA. CT DOSE: 1371.00 mGy.cm FINDINGS: Lung bases: The heart is mildly enlarged and without pericardial effusion. Much annulus is densely ca lcified. The lung bases are clear noting bibasilar scarring/atelectasis. A small hiatal hernia is not ed. Liver: The contrast-enhanced liver is normal in size, contour, and attenuation. There is mild intrahe patic biliary ductal dilatation. The hepatic veins and portal veins are patent. Gallbladder: Surgically absent and clips in the gallbladder fossa. Spleen: Normal in size and attenuation. Pancreas: Atrophic and grossly unremarkable. Adrenal glands: Unremarkable. Kidneys: The contrast enhanced kidneys are atrophic and without hydronephrosis. The kidneys enhance s ymmetrically. There are numerous bilateral renal vascular calcifications. A 1. Centimeter cyst is not ed in the interpolar right kidney. Additional subcentimeter cortical hypodensities also likely repres ent cysts but are too small for definitive catheterization. Cortical scarring is seen in the left low er pole. Abdominal vasculature: There is advanced atherosclerotic calcification of the abdominal aorta. A smal l infrarenal abdominal aortic aneurysm that measures up to 3.5 cm. Bowel: There is moderate colonic diverticulosis without CT evidence of acute diverticulitis. No bowel obstruction is seen. The appendix is not identified and reported surgically absent. Peritoneum: There is no intraperitoneal free air or abdominal ascites. Lymphadenopathy: None. Pelvic viscera: The bladder wall appears mildly thickened with faint pericystic infiltration. The sun lucero is surgically absent. No adnexal lesion is seen. Skeletal structures: The skeletal structures are osteopenic. There is a mild acute inferior endplate compression fracture of L1. No lytic or blastic lesions are seen. IMPRESSION: 1. There is a mild acute inferior endplate compression fracture of L1. 2. The bladder wall appears mildly thickened with faint pericystic infiltration. Correlate clinically and with urinalysis for evidence of cystitis. 3. Colonic diverticulosis without CT evidence of acute diverticulitis. 4. Additional findings as above. ACT 112: Negative or not required by law. Electronically signed by: Hugh Zimmer M.D. 12/12/2021 6:35 AM
[2021-12-12 06:58] LABS: Basophils # (auto) 0.03 K/uL (0-0.2); Basophils % (auto) 0.4 %; Hematocrit (blood only) 36.4 % (34.1-44.9); Hemoglobin 11.3 g/dl (12.0-16.0); Immature Granulocytes # (auto) 0.04 K/uL (0.00-0.02); Immature Granulocytes % (auto) 0.6 %; Lymphocytes # (auto) 0.56 K/uL (1.2-3.4); Mean Corpuscular Hemoglobin 29.3 pg (25.0-34.0); Mean Corpuscular Volume 94.3 fL (80.0-100.0); Mean Platelet Volume 11.3 fL (9.4-12.3); Monocytes % (auto) 2.8 %; Neutrophils % (auto) 88.2 %; Platelet Count 169 K/uL (130-400); RDW Coefficient of Variation 14.5 % (11.5-14.5); RDW Standard Deviation 50.5 fL (36.4-46.3); Red Blood Count 3.86 M/uL (3.93-5.22); White Blood Count 7.03 K/ul (4.8-10.8)
[2021-12-12 07:25] LABS: Albumin Level 3.5 gm/dl (3.4-5.0); BUN Creatinine Ratio 15.9 (10-20); Bilirubin,Total 0.4 mg/dl (0.2-1.0); Calcium 9.3 mg/dl (8.5-10.1); Creatinine Clr Calc Pharmacy 38.5 ml/min; Est GFR (African American) 43.4 ml/min; Est GFR (Non-African American) 37.5 ml/min; Potassium 4.7 mmol/L (3.5-5.1); Total Protein 7.1 gm/dl (6.0-8.3)
[2021-12-12] MEDS: dexAMETHasone 6 MG in SYRINGE 0 ML IV SCH (08:24)
[2021-12-12] MEDS: LITHIUM CARBONATE SLOW REL 300 MG TAB PO SCH (08:24)
[2021-12-12] MEDS: guaiFENesin 600 MG TABCR PO SCH ×2 (08:24→20:23)
--- NOTE | 2021-12-12 08:27 | Hospitalist Progress Note ---
Date of Service December 12, 2021 Assessment & Plan (1) COVID-19: Plan: 81yo female presenting with three days of back pain, productive cough, congestion, weakness and fatigue. Patient having difficulty ambulating in her home. In the ER she is afebrile, episode of hypoxia to 84% on room air. She does have moderate COPD but does not use supplemental O2 at home. She is vaccinated against Covid with 2 + booster, she is covid + on admission without covid pneumonia - Dexamethasone 6mg IV daily -Zofran PRN nausea -Tylenol PRN pain or fever -Mucinex PRN -Albuterol PRN (2) Hypotension: Plan: Patient with low blood pressure in the ER, responsive to IVF. Given NSS x 500ml bolus, LR x 500mL bolus and LR at 125mL/hr. 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 She has been on Coumadin for years - 4mg po daily. INR is therapeutic at 2.3 -Continue Coumadin 4mg po daily -INR qAM (4) Diarrhea: Plan: Patient with watery diarrhea prior to arrival. Has history of c. diff. -GI panel requested by ER, uncollected at present, ? enteritis of Covid infection (5) Hypothyroidism: Plan: Chronic. Stable - TSH=4.48 on 08/13/21 -Continue Synthroid at home dosing (88mcg 6x weekly with 44mcg on Tuesday) (6) Hypertension: Plan: Patient with low blood pressure in the ER most likely secondary to volume c ontraction -Hold Lisinopril and recude dose of Metoprolol -Hold Lasix (7) Atrial flutter, paroxysmal: Plan: Presently in NSR. Anticoagulated with Coumadin -Telemetry monitoring -Continue Coumadin (8) DM type 2 (diabetes mellitus, type 2): Plan: Diet controlled. Was previously on Metformin which was discontinued due to worsening chronic diarrhea -Check blood sugars while on steroids (9) Bipolar disorder: Plan: Stable. Patient follows with Psychiatry. -Continue [place] (last level on 11/20/20 = 0.7) on recheck is low also (10) Recurrent UTI: Plan: Patient with recurrent UTIs. She follows with Urology - last seen 10/27/21 -Continue methenamine -UA is abnormal but does not appear to be infected. Admission and Anticipated Discharge Date Admission Date: December 11, 2021 Subjective Patient seems to be much improved she is able to move independently in bed. She did not have any shortness of breath. She has had no recurrent diarrhea. Review of Systems Review of Systems: Resolution of distress and fatigue no headache, no visual changes no speech or swallowing issues no chest pain, pressure or palpitations no shortness of breath, cough or wheezes no abdominal pain, nausea or vomiting, diarrhea or constipation no dysuria, hematuria or frequency no focal joint pain or swelling no complaints of back pain, no CVA tenderness or radicular pain no bruising, bleeding or rashes no focal signs of weakness or numbness or altered sensation no complaints of anxiety or depression.. Physical Exam Physical Exam: The patient appeared stable Vital signs as documented. Lungs are clear to auscultation and appear unlabored Cardiac exam, Rhythm is regular.. No murmurs, rubs or gallops. Abdominal exam reveals normal bowel sounds, soft non tender, no masses Extremities are nonedematous and both pedal pulses are normal. Neurologic exam is alert and oriented, no focal loss of strength or sensation pt could move and sit up in bed independently Skin is without bruises or rashes Psychologically is without concerns for anxiety or depression. Results & Data Results & Data ([facility]) Vital Signs (Past 12 Hours) Vital Signs Temp Pulse Pulse Resp BP BP Pulse Ox 12/12/21 08:15 97.7 F 58 L 22 125/49 L 95 12/12/21 07:14 50 L 12/12/21 04:22 97.5 F L 58 L 17 117/72 97 12/12/21 01:50 12/12/21 01:50 97.5 F L 54 L 20 93/59 L 99 12/12/21 00:45 61 23 109/56 L 99 12/11/21 23:24 98.2 F 61 20 81/53 L 88/49 L 97 12/11/21 22:15 68/45 L 88/39 L 12/11/21 22:10 71 22 81/50 L 97 12/11/21 22:34 66 24 108/44 L 98 12/11/21 21:30 72 26 H 101/57 L 93 12/11/21 21:14 88 L O2 Del Method O2 Flow Rate 12/12/21 08:15 Nasal Cannula 2 12/12/21 07:14 12/12/21 04:22 Nasal Cannula 2 12/12/21 01:50 Nasal Cannula 2 12/12/21 01:50 Nasal Cannula 2 12/12/21 00:45 Nasal Cannula 2 12/11/21 23:24 Nasal Cannula 2 12/11/21 22:15 12/11/21 22:10 Nasal Cannula 2 12/11/21 22:34 Nasal Cannula 2 12/11/21 21:30 Nasal Cannula 2 12/11/21 21:14 Room Air PG Care Time/CCT Total # of Minutes Spent Total Time Spent with Patient: Total time spent is greater than 50% in coordination of care (as documented) at patient's floor/unit and/or counseling patient: Coding Level of Care Code 12427 Subseq Hosp Care Lvl 2 Diagnoses COVID-19 U07.1 Hypotension I95.9 History of pulmonary embolism Z86.711 Diarrhea R19.7 Hypothyroidism E03.9 Hypertension I10 Atrial flutter, paroxysmal I48.92 DM type 2 (diabetes mellitus, type 2) E11.9 Bipolar disorder F31.9 Recurrent UTI N39.0
[2021-12-12] MEDS: METOPROLOL TARTRATE 25 MG TAB PO SCH ×2 (09:56→20:22)
--- NOTE | 2021-12-12 15:31 | Electrocardiogram Report ---
Test Reason : Blood Pressure : / mmHG Vent. Rate : 086 BPM Atrial Rate : 086 BPM P-R Int : 194 ms QRS Dur : 082 ms QT Int : 344 ms P-R-T Axes : 000 046 036 degrees QTc Int : 411 ms Low right atrial rhythm Low voltage QRS Borderline ECG When compared with ECG of 12-MAY-2019 12:41, No significant change Confirmed by José Meeks ([id number]) on 12/12/2021 3:31:40 PM Referred By: REFERRED SELF Confirmed By:José Meeks
[2021-12-12] MEDS ORDERED: WARFARIN SOD 4 MG TAB PO SCH (16:00)
--- NOTE | 2021-12-12 16:28 | Discharge Summary ---
Date of Service December 13, 2021 Admission HPI Per Admitting Provider Serenity Simmons is an 81yo female with history of Atrial Fibrillation, HTN, HLP, Bipolar disorder and non-small cell lung cancer presenting with three days of productive cough, congestion, fever, aches, nausea, vomiting and diarrhea. Also with mid back pain. She has been very weak and fatigued. Decreased oral intake as well. Patient found to be POSITIVE for Covid-19 infection. Patient is vaccinated against Covid-19. She has not had the illness before to her knowledge. Daughter in the ER and assists with history. In the ER she is afebrile, blood pressure initially appropriate but with several low readings - 80's / 50's. ER Course: Tylenol, Zofran, NSS 500mL, LR 500mL, Dexamethasone 10mg IV, Guaifenesin 600mg po BID, ALbuterol 2puffs, Pepcid 20mg IV Principal Diagnosis covid infection with enteritis, not pneumonia L1 endplate compression fracture Discharge Exam The patient appeared stable Vital signs as documented. Lungs are clear to auscultation and appear unlabored Cardiac exam, Rhythm is regular.. No murmurs, rubs or gallops. Abdominal exam reveals normal bowel sounds, soft non tender, no masses Extremities are nonedematous and both pedal pulses are normal. Neurologic exam is alert and oriented, no focal loss of strength or sensation pt could move and sit up in bed independently Skin is without bruises or rashes Psychologically is without concerns for anxiety or depression. Discharge Data Allergies Allergy/AdvReac Type Severity Reaction Status Date / Time Penicillins Allergy Severe THROAT Verified 10/27/21 15:26 SWELLING Sulfa (Sulfonamide Allergy Severe "PAINS IN Verified 10/27/21 15:26 Antibiotics) MY HEART" benzalkonium AdvReac Unknown Verified 10/27/21 15:26 Cephalosporins AdvReac Unknown Verified 10/27/21 15:26 oxycodone AdvReac Unresponsiv Verified 10/27/21 15:26 e sulfacetamide AdvReac Unknown Verified 10/27/21 15:26 Consultations 12/11/21 21:26 ED Decision to Admit Stat Ordered Studies 12/11/21 19:03 CT abd pelvis IV con only Urgent Hospital Course (1) COVID-19: 81yo female presenting with three days of back pain, productive cough, congestion, weakness and fatigue. Patient having difficulty ambulating in her home. In the ER she is afebrile, episode of hypoxia to 84% on room air. She does have moderate COPD but does not use supplemental O2 at home. She is vaccinated against Covid with 2 + booster, she is covid + on admission without covid pneumonia - Dexamethasone 6mg will be continued po for additional 5 days - (2) Hypotension: resolved (3) History of pulmonary embolism: Patient with history of recurrent DVT, PE. 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 She has been on Coumadin for years - 4mg po daily. INR is therapeutic at 2.3 -Continue Coumadin 4mg po daily (4) Diarrhea: Patient with watery diarrhea prior to arrival. Has history of c. diff. -GI panel requested by ER, uncollected at present, ? enteritis of Covid infection (5) Hypothyroidism: Chronic. Stable - TSH=4.48 on 08/13/21 -Continue Synthroid at home dosing (88mcg 6x weekly with 44mcg on Tuesday) (6) Hypertension: Patient with low blood pressure in the ER most likely secondary to volume contraction -Hold Lisinopril and reduce dose of Metoprolol -Hold Lasix (7) Atrial flutter, paroxysmal: Presently in NSR. Anticoagulated with Coumadin -Telemetry monitoring -Continue Coumadin, lower dose of metoprolol (8) DM type 2 (diabetes mellitus, type 2): Diet controlled. Was previously on Metformin which was discontinued due to worsening chronic diarrhea (9) Bipolar disorder: Stable. Patient follows with Psychiatry. -Continue Stem (last level on 11/20/20 = 0.7) on recheck is low also (10) Recurrent UTI: Patient with recurrent UTIs. She follows with Urology - last seen 10/27/21 -Continue methenamine -UA is abnormal but does not appear to be infected. Total Time Total Time Spent Total Time Spent (In Minutes): It required greater than 30 minutes to prepare this patient for discharge Discharge Plan Discharge Items Patient Disposition: Home - Self-Care Reason For Visit: COVID-19, HYPOXIA Discharge Diagnosis: first lumbar vertebrae endplate fracture covid infection, possible covid enteritis Activity: Per Instructions section Activity Comment: gradually increase activity Non-emergency contact: Primary Care Provider Call non-emergency contact if: your symptoms worsen Follow-up/Referrals: Kristel Morfin MD [Primary Care Provider] - Diet: Regular Addtl Attending Provider Instructions: You have been diagnosed with covid infection, it would be recommended that you quarantine yourself for 10 days from your first test or first symptoms, and if at the 10th day you have no symptoms the you can come off quarantine but use common sense precautions. Quarantine means attempting to stay away from people who have not had an active covid infection in the past, and if you have to be around others to wear a mask even if you are indoors, do not share a room to sleep in with others until you are out of quarantine. If you still have symptoms at the 10th day, continue to quarantine until you are symptom free for 48 hours Yes of the small fracture of the end of your first lumbar vertebrae this may be the origin of your back pain. At this time using Tylenol for pain control would be advised. First few days may consider icing your back. After that you can apply heat. May also get some topical relief either with a topical analgesic cream or even topical pain patches. Please follow-up with Dr. Rosado consider bone density testing Pending Studies at Discharge: No Stand-Alone Forms: My [facility] [place], Smoking Cessation Medications and DC Order Prescriptions: New dexamethasone 6 mg tablet 6 mg PO DAILY Qty: 5 0RF tramadol [Ultram] 50 mg tablet 50 mg PO Q8H Qty: 10 0RF Continued mecobalamin (vitamin B12) 1,000 mcg tablet,disintegrating 1,000 mcg sublingual DAILY Qty: 30 0RF Rx Instructions: place tablet under tongue and allow to dissolve for at least30 secs before swallowing furosemide 20 mg tablet 20 mg PO Q OTHER DAY Qty: 30 3RF Rx Instructions: Per dr more but patient states, she does not take. She is not totally thi nking straight. donepezil [Aricept] 5 mg tablet 5 mg PO HS Qty: 90 1RF Rx Instructions: filled on 11/10/21 for 90 days methenamine hippurate [Hiprex] 1 gram tablet 1 g PO QPM Qty: 90 3RF Rx Instructions: Take 1 tablet daily in the evening. betamethasone dipropionate 0.05 % cream 1 applic topical BID PRN (Reason: skin irritation) Qty: 15 3RF lithium carbonate [Lithobid] 300 mg Tablet Extended Release 300 mg PO QAM cholecalciferol (vitamin D3) 50 mcg (2,000 unit) capsule 2,000 unit PO QAM acetaminophen [Tylophen] 500 mg capsule 1,000 mg PO Q6H PRN (Reason: Pain) levothyroxine 88 mcg tablet 44 mcg PO .QSUNDAY warfarin 4 mg tablet 4 mg PO DIRECTED Protocol: Dose Management Condition: Tuesday (Week One) Dose/Route: 4 mg Instruction: 1 x 4 mg tablet Condition: Tuesday Dose/Route: 4 mg Instruction: 1 x 4 mg tablet Condition: Tuesday Dose/Route: 4 mg Instruction: 1 x 4 mg tablet Condition: Tuesday Dose/Route: 4 mg Instruction: 1 x 4 mg tablet Condition: Dose/Route: 4 mg Instruction: 1 x 4 mg tablet Condition: Tuesday Dose/Route: 4 mg Instruction: 1 x 4 mg tablet Condition: Tuesday Dose/Route: 4 mg Instruction: 1 x 4 mg tablet Condition: Tuesday (Week Two) Dose/Route: 4 mg Instruction: 1 x 4 mg tablet Condition: Tuesday Dose/Route: 4 mg Instruction: 1 x 4 mg tablet Condition: Tuesday Dose/Route: 4 mg Instruction: 1 x 4 mg tablet Condition: Tuesday Dose/Route: 4 mg Instruction: 1 x 4 mg tablet Condition: Dose/Route: 4 mg Instruction: 1 x 4 mg tablet Condition: Tuesday Dose/Route: 4 mg Instruction: 1 x 4 mg tablet Condition: Tuesday Dose/Route: 4 mg Instruction: 1 x 4 mg tablet Protocol Text: Adjustment Start Date: Tuesday12/04/21 INR Value: 2.2 INR Date: 12/03/21 Recheck Date: 01/03/22 levothyroxine [Synthroid] 88 mcg tablet 88 mcg PO [id number] Rx Instructions: Take 6 days and half tablet on Tuesday Changed metoprolol succinate [Toprol XL] 50 mg tablet extended release 24 hr 25 mg PO QAM Qty: 30 0RF Rx Instructions: This is on Dr list but I can not see were it has been getting filled. Patient is unsure of this med. Discontinued lisinopril [Zestril] 5 mg tablet 5 mg PO QAM Qty: 90 1RF Discharge Orders: Discharge Order (Routine); Ordered 12/13/21 Ordered By: Robi Caceres Admission Data Admit Date/Time: 12/11/21 22:11 Attending Provider: Robi Caceres Admit Provider: Giselle Tavarez Primary Care Provider: Kristel Morfin V. Other Providers: Giselle Tavarez Other Interventions: Discharge Summary Assessment (RN) Last Done: 12/12/21 16:12 Coding Level of Care Code D/C DAY MANAGEMENT >30 MINS Diagnoses COVID-19 U07.1 Hypotension I95.9 History of pulmonary embolism Z86.711 Diarrhea R19.7 Hypothyroidism E03.9 Hypertension I10 Atrial flutter, paroxysmal I48.92 DM type 2 (diabetes mellitus, type 2) E11.9 Bipolar disorder F31.9 Recurrent UTI N39.0
[2021-12-12] MEDS ORDERED: METHENAMINE HIPPURATE 1 GM TAB PO SCH (21:00)
[2021-12-12] MEDS ORDERED: DONEPEZIL HCL 5 MG TAB PO SCH (21:00)
[2021-12-13 06:27] LABS: INR 2.1 (0.9-1.1); Prothrombin Time 21.9 Seconds (9.0-12.0)
[2021-12-13] MEDS ORDERED: LEVOTHYROXINE SODIUM 88 MCG TABLET PO SCH (06:30)
[2021-12-13] MEDS: LITHIUM CARBONATE SLOW REL 300 MG TAB PO SCH (08:34)
[2021-12-13] MEDS: guaiFENesin 600 MG TABCR PO SCH (08:35)
[2021-12-13] MEDS: METOPROLOL TARTRATE 25 MG TAB PO SCH (08:35)
[2021-12-13] MEDS: dexAMETHasone 6 MG in SYRINGE 0 ML IV SCH (09:21)
== END 2021-12-13 12:34 | disposition home or self-care (01) | DRG 178 ==
LOC: ED 18:28 → EDINP 22:11 → SUATTDRO 22:11 → 2S 12-12 01:17

== ENCOUNTER 2023-03-07 11:22 | Inpatient (IN) ==
--- NOTE | 2023-03-07 11:44 | ED Triage Note ---
Date of Service March 07, 2023 History of Present Illness This patient was briefly evaluated while in triage. An abbreviated physical exam was performed. This patient is a 83-year-old Female who presents to the ED for evaluation of increased swelling/redness right leg. Symptoms started last evening. Denies fever/chills, n/v, chest pain, SOB. Denies wounds. On Coumadin for history of DVT/PE, taking as prescribed. Physical Exam Constitutional: alert and oriented x3. no acute distress. HEENT: normocephalic, atraumatic. normal conjunctiva.PERRLA. EOM's grossly intact. Respiratory: lungs are clear to auscultation without wheezes, rhonchi, or rales bilaterally. equal chest rise. normal respiratory effort, no accessory muscle use. Cardiovascular: normal heart sounds without murmur. regular rate and rhythm. GI: abdomen is soft, nontender. No palpable masses. No rebound tenderness or guarding. MSK: moves all 4 extremities spontaneously. Bilateral lower extremity edema, R erythematous Psych:appropriate mood and affect. Initial orders for labs and / or imaging were placed and patient was placed in the waiting area until a bed is available. Please see further documentation for the full ED course.
[2023-03-07 13:32] LABS: Basophils # (auto) 0.05 K/uL (0.00-0.20); Basophils % (auto) 0.3 %; Eosinophils # (auto) 0.02 K/uL (0.00-0.50); Eosinophils % (auto) 0.1 %; Hemoglobin 12.3 g/dl (12.0-16.0); Immature Granulocytes # (auto) 0.06 K/uL (0.01-0.20); Immature Granulocytes % (auto) 0.4 %; Lymphocytes % (auto) 7.5 %; Mean Corpuscular Hemoglobin 29.4 pg (25.0-34.0); Mean Corpuscular Hgb Conc 32.4 g/dL (32.0-36.0); Mean Corpuscular Volume 90.9 fL (80.0-100.0); Mean Platelet Volume 11.2 fL (9.4-12.4); Monocytes # (auto) 0.53 K/uL (0.11-0.59); Monocytes % (auto) 3.3 %; Neutrophils # (auto) 14.17 K/uL (1.40-6.50); Neutrophils % (auto) 88.4 %; Platelet Count 289 K/uL (130-400); RDW Coefficient of Variation 13.8 % (11.5-14.5); RDW Standard Deviation 45.8 fL (36.4-46.3); Red Blood Count 4.18 M/uL (4.20-5.40); White Blood Count 16.03 K/ul (4.8-10.8)
[2023-03-07 13:42] LABS: Alanine Aminotransferase 8 U/L (7-52); Albumin Globulin Ratio 0.9 (0.9-2); Albumin Level 3.4 gm/dl (3.4-5.0); Alkaline Phosphatase 87 U/L (34-104); Anion Gap 10 (3-11); Aspartate Aminotransferase 19 U/L (13-39); BUN Creatinine Ratio 11.8 (10-20); Bilirubin,Total 0.9 mg/dl (0.2-1.0); Blood Urea Nitrogen 15 mg/dl (6-23); Carbon Dioxide 26 mmol/L (21-32); Chloride 100 mmol/L (98-107); Est GFR (African American) 44.9 ml/min; Est GFR (Non-African American) 38.7 ml/min; Globulin 3.9 gm/dl (2.5-4.0); Glucose 157 mg/dl (70-99(Fasting)); Sodium 136 mmol/L (136-145); Total Protein 7.3 gm/dl (6.0-8.3)
--- NOTE | 2023-03-07 14:02 | Emergency Department Note ---
Impression & Plan Cellulitis of right lower extremity, Ascites, Leg edema, Pulmonary nodules ED Provider Note NAME: GLORIA WORLEY AGE: 83 SEX: F : 1940 ARRIVES VIA: Walk-In INFORMANT: Patient, ED PROVIDER(S): Josue Acuna MD CHIEF COMPLAINT: Leg swelling MEDICAL DECISION MAKING: Patient presents due to concern for leg swelling. On exam the patient does have significant abdominal distention which may be contributing to the patient's shortness of breath. IV was established blood work is obtained along with a chest x-ray right lower extremity DVT ultrasound and CT of the abdomen pelvis. Patient's ultrasound does not show evidence of DVT. The patient does have a white count 16 likely significant for the patient's right lower extremity cellulitis. I did review with pharmacy and the patient has tolerated cephalosporins in the past. Patient was ordered IV Rocephin. Patient has a normal H&H and platelet count. The patient's kidney function grade 1.2 but not significantly deranged and the patient's LFTs were not significantly remarkable. Pro-Noah of 1.58. Troponin is not elevated. Chest x-ray does show possible atelectasis pneumonia or aspiration. Patient CT abdomen pelvis does show significant large volume ascites. Trace pleural effusion noted to the right lung. Also noted pulmonary nodules. Given the patient's new abdominal ascites without any prior clear history and the patient's associated right lower extremity cellulitis I did suggest the patient be admitted. I did speak the on- call hospital service Dr. Blum the patient was admitted to medicine service. Discussion w/ other healthcare providers: Dr. Blum and Dr. Daniels inpatient medicine service Prior /Outside records reviewed: I reviewed a primary care visit from February 21, [address] Kendall. The patient was seen for healthcare maintenance. Patient was ordered a KUB given concern for some abdominal pain. 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 Differential diagnosis: DVT, limb ischemia, musculoskeletal pain, infection, joint effusion, trauma, lymphedema, idiopathic, CHF, as well as other pathologies. Diagnostics, as interpreted by me: ECG: None Cardiac monitoring: An order was placed for continuous cardiac monitoring. The monitor shows a rate of 85 with sinus rhythm. Patient was placed on pulse oximetry Medical decision rules: None Imaging studies: I informally interpreted the patient's CT abdomen pelvis which does show large volume abdominal ascites with formal report to follow. I informally interpreted the patient's chest x-ray which does not show obvious pneumothorax. Bibasilar opacities noted. Formal report to follow HPI: Patient presents due to concern for right lower extremity swelling. The patient states that she does have a prior known history of blood clots and does take Coumadin. The patient does believe that the swelling is worsened but has had associated rash. The patient denies any itchiness but does have some pain. The patient states that she is unable to tolerate her compression stockings. Patient has had some shortness of breath and dyspnea on exertion. The patient does suffer from this chronically but also states that it seems to be a bit worse. Patient sometimes will have some chest pain with cough. Cough is nonproductive. Patient states she is compliant with her medications. No falls or trauma. Patient states that she does have small bowel movements and is passing gas. Patient denies any prior history of bowel obstruction PAST MEDICAL HISTORY: See Below PAST SURGICAL HISTORY: See Below SOCIAL HISTORY: See Below HOME MEDICATIONS: See Below ALLERGIES: See Below VITALS: See Below PHYSICAL EXAMINATION: GENERAL: NAD, non-toxic. EYE EXAM: Normal conjunctiva. PERRL, no anisocoria and EOM's grossly intact w/o pain. OROPHARYNX: Moist mucus membranes, grossly normal dentition. NECK: Supple, no nuchal rigidity, no adenopathy, non-tender. No signs of meningismus. FROM of the neck with good chin to chest and neck extension. No stridor. LUNGS: Bibasilar crackles noted normal chest wall mechanics. HEART: NSR, no MRG. ABDOMEN: Abdomen distended, no significant TTP BACK: No CVA TTP. SKIN: No rashes and no bruising. UPPER EXTREMITIES: Upper extremities are grossly normal. LOWER EXTREMITIES: Right greater than left lower extremity edema with erythema noted just distal to the knee to the ankle, no crepitus, mild TTP, blanching erythema without any crepitus or blistering NEURO EXAM: A&O x3, cranial nerves II-XII grossly intact, normal speech, moves all 4 extremities. Past Med/Surg History Medical History Leg swelling Right foot strain Left arm pain Skin lesion Non-ST elevation myocardial infarction (NSTEMI) of indeterminate age Diarrhea Hypotension COVID-19 Pre-op evaluation Valvular heart disease Per 2014 echo: There is mild mitral regurgitation. There is mild to moderate tricuspid regurgitation. Obesity Hypertension Hyperlipidemia Anemia Elevated glucose level History of pulmonary embolism Hypokalemia Pulmonary hypertension Per 2014 echo:Moderate pulmonary hypertension suggested; estimated RVSP 56 mmHg. Recurrent UTI (urinary tract infection) Chronic kidney disease STAGE 3 History of DVT (deep vein thrombosis) 1ST ONE 40 YEARS AGO AFTER CHILDBIRTH, 2ND DVT FOLLOWING EXTENDED BED REST APPROX 10 YEARS AGO Asthma no inhaler Geddes toxicity C. difficile colitis PT UNSURE OF EXACT DATE. DX AND TREATED AT [facility]. NO COMPLICATIONS SINCE Septic shock PT WAS ADMITTED MAR 2018 FOR SEVERE UTI WITH SHOCK Atrial flutter HX OF A-FLUTTER. PT HAD CARDIOVERSION [address] JACOBO. REMAINS STABLE. Non-small cell carcinoma of lung TUMOR EXCISION, NO CHEMO REQUIRED [facility] Bipolar disorder (11/11/12) Surgical History S/P lobectomy of [place] [place] S/P total knee arthroplasty History of left knee replacement 07/05/2018 [facility] S/P total knee arthroplasty S/P total knee arthroplasty History of partial hysterectomy History of phacoemulsification of cataract of both eyes with intraocular lens implantation H/O varicose vein stripping BILATERAL LOWER EXTREMITIES Hx of cholecystectomy History of lung surgery TUMOR EXCISION, NO CHEMO REQUIRED. PT UNSURE OF DATE OF TYPE OF SURGERY History of cardioversion Family History Sister Breast cancer Colorectal cancer Mother Colorectal cancer Diabetes Father Lung cancer Brother Prostate cancer Denies family history of Ovarian cancer Myocardial infarction Social History Smoking Status: Former smoker Tobacco Type: Cigarettes packs per day: 1; Cigarettes Per Day: 10; Second Hand Exposure: No; Do You Dip or Chew Tobacco: No; Hx Alcohol Use: No Hx Substance Use: No Preferred Language: Belarusian Communication Ability: Effective Visual Impairment: Limited [employer] Attorney Required: No Beliefs That Will Affect Care: None marital status: / Current Living Situation: Alone current occupational status: retired How many Children do You have: 3 Other Information That Helps Us Care for You: No Feels Safe at Home: Yes and No Is there a partner from a previous relationship who is making you feel unsafe now?: No Any Concerns about Your Family Situation: No Would You Like to Speak to Someone About Your Situation: No Safety Concerns: Feels Safe At This Time Childhood Exposure to Second-Hand Smoke: Yes Dental Care, Regularly: Yes Physical Activity Frequency: Does not Exercise Seatbelt Use: always Sunscreen Use: No Assistive Devices: Cane and Walker Allergies Allergies Allergy/AdvReac Type Severity Reaction Status Date / Time Penicillins Allergy Severe THROAT Verified 03/07/23 17:24 SWELLING Sulfa (Sulfonamide Allergy Severe "PAINS IN Verified 03/07/23 17:24 Antibiotics) MY HEART" benzalkonium AdvReac Unknown Verified 03/07/23 17:24 Cephalosporins AdvReac Unknown Verified 03/07/23 17:24 oxycodone AdvReac Unresponsiv Verified 03/07/23 17:24 e sulfacetamide AdvReac Unknown Verified 03/07/23 17:24 Home Meds Home Medications Medication Instructions Recorded Confirmed acetaminophen 500 mg capsule 1,000 mg PO Q6H PRN Pain 05/12/19 02/22/23 (Tylophen) cholecalciferol (vitamin D3) 50 2,000 unit PO QAM 05/12/19 02/22/23 mcg (2,000 unit) capsule Previous Rx's Medication Instructions Recorded mecobalamin (vitamin B12) 1,000 1,000 mcg sublingual DAILY #30 tabs 07/28/20 mcg disintegrating tablet,sublingual betamethasone dipropionate 0.05 % 1 applic topical BID PRN skin 01/28/21 topical cream irritation #15 grams lithium carbonate 300 mg 300 mg PO DAILY #30 tabs 01/13/22 tablet,extended release albuterol sulfate 90 mcg/actuation 1 inh inhalation QID PRN shortness 08/17/22 aerosol inhaler of breath or wheezing #8.5 grams levothyroxine 88 mcg tablet 88 mcg PO DAILY #90 tabs 08/17/22 (Synthroid) methenamine hippurate 1 gram 1 g PO QPM #30 tabs 12/31/22 tablet (Hiprex) donepezil 5 mg tablet (Aricept) 5 mg PO HS #90 tabs 02/22/23 furosemide 20 mg tablet 20 mg PO Q OTHER DAY #30 tabs 02/22/23 pantoprazole 40 mg tablet,delayed 40 mg PO DAILY #30 tabs 02/22/23 release warfarin 3 mg tablet 3 mg PO DAILY #30 tabs 02/22/23 warfarin 4 mg tablet 4 mg PO DIRECTED #90 tabs 02/22/23 Results & Data (ED) Vital Signs Vital Signs - 24 hr 03/07/23 14:05 03/07/23 15:50 03/07/23 19:02 Pulse Rate 79 Pulse Rate [Apical] 92 H 90 Pulse Rhythm [Apical] Regular Regular Pulse Strength [Apical] Normal Strong Respiratory Rate 20 20 Respiratory Effort / Characteristics Non-Labored Spontaneous Non-Labored Spontaneous Respiratory Depth Normal Normal Respiratory Pattern Regular Regular Blood Pressure [Right Arm] 121/62 129/66 Blood Pressure Mean [Right Arm] 81 87 Blood Pressure Position [Right Arm] Sitting Sitting Pulse Oximetry 94 95 Oxygen Delivery Method Room Air Room Air Home Medications Current Medication List: was personally reviewed by me Laboratory Data Attestation: I reviewed the patient's lab results. 03/08/23 05:23 03/08/23 05:23 Lab Results 03/07/23 03/07/23 Range/Units 12:51 14:31 WBC 16.03 H (4.8-10.8) K/ul RBC 4.18 L (4.20-5.40) M/uL Hgb 12.3 (12.0-16.0) g/dl Hct 38.0 (37.0-47.0) % MCV 90.9 (80.0-100.0) fL MCH 29.4 (25.0-34.0) pg MCHC 32.4 (32.0-36.0) g/dL RDW Std Deviation 45.8 (36.4-46.3) fL RDW Coeff of Kim 13.8 (11.5-14.5) % Plt Count 289 (130-400) K/uL MPV 11.2 (9.4-12.4) fL Immature Gran % (Auto) 0.4 % Neut % (Auto) 88.4 % Lymph % (Auto) 7.5 % Hodgeman % (Auto) 3.3 % Eos % (Auto) 0.1 % Baso % (Auto) 0.3 % Neut # (Auto) 14.17 H (1.40-6.50) K/uL Lymph # (Auto) 1.20 (1.20-3.40) K/uL Hodgeman # (Auto) 0.53 (0.11-0.59) K/uL Eos # (Auto) 0.02 (0.00-0.50) K/uL Baso # (Auto) 0.05 (0.00-0.20) K/uL Immature Gran # (Auto) 0.06 (0.01-0.20) K/uL PT Cancelled 36.3 H INR Cancelled 3.6 H APTT Cancelled 47.4 H* PTT Ratio Cancelled 1.7 Sodium 136 (136-145) mmol/L Potassium 4.0 (3.5-5.1) mmol/L Chloride 100 (98-107) mmol/L Carbon Dioxide 26 (21-32) mmol/L Anion Gap 10 (3-11) BUN 15 (6-23) mg/dl Creatinine 1.27 H (0.6-1.2) mg/dl Est Cr Clr Drug Dosing Not Reportable Est GFR ( Amer) 44.9 ml/min Est GFR (Non-Af Amer) 38.7 ml/min BUN/Creatinine Ratio 11.8 (10-20) Glucose 157 H (70-99(Fasting)) mg/dl Calcium 10.0 (8.6-10.3) mg/dl Total Bilirubin 0.9 (0.2-1.0) mg/dl AST 19 (13-39) U/L ALT 8 (7-52) U/L Alkaline Phosphatase 87 (34-104) U/L Troponin I High Sens 9.6 (0-14) pg/ml Total Protein 7.3 (6.0-8.3) gm/dl Albumin 3.4 (3.4-5.0) gm/dl Globulin 3.9 (2.5-4.0) gm/dl Albumin/Globulin Ratio 0.9 (0.9-2) Procalcitonin 1.58 H (0-0.5) ng/ml Administered Medications Donepezil HCl (Donepezil Hcl 5 Mg Tab) 5 mg PO HS SHEEBA Stop: 04/06/23 20:59 Last Admin: 03/07/23 21:42 Dose: 5 mg Documented By: MINDI Levothyroxine Sodium (Levothyroxine Sodium 88 Mcg Tablet) 88 mcg PO DAILYBB SHEEBA Stop: 04/07/23 06:29 Last Admin: 03/08/23 06:22 Dose: 88 mcg Documented By: BENI Geddes Carbonate (Geddes Carbonate Slow Rel 300 Mg Tab) 300 mg PO DAILY SHEEBA Stop: 04/07/23 08:59 Last Admin: 03/08/23 08:56 Dose: 300 mg Documented By: [id number] Pantoprazole Sodium (Pantoprazole 40 Mg Tab) 40 mg PO DAILY SHEEBA Stop: 04/07/23 08:59 Last Admin: 03/08/23 08:56 Dose: 40 mg Documented By: [id number] Discontinued Medications Ceftriaxone Sodium (Rocephin) 2,000 mg in 50 mls @ 100 mls/hr IV NOW STA Stop: 03/07/23 17:31 Last Infusion: 03/07/23 19:30 Dose: Infused Documented By: Admin: 03/07/23 19:00 Dose: 100 mls/hr Documented By: MINDI Phytonadione 2.5 mg/ Dextrose 50.25 mls @ 100.5 mls/hr IV ONE ONE Stop: 03/07/23 21:46 Last Infusion: 03/07/23 22:15 Dose: Infused Documented By: Admin: 03/07/23 21:43 Dose: 100.5 mls/hr Documented By: MINDI Ioversol (Optiray 320 500ml) 77 ml IV ONCE ONE Stop: 03/07/23 14:57 Last Admin: 03/07/23 14:56 Dose: 77 ml Documented By: KSF Imaging Data Radiologist's Impression: Venous Doppler Study 03/07/23 11:46 RIGHT LOWER EXTREMITY VENOUS DOPPLER HISTORY: Right leg Increased swelling/redness COMPARISON STUDY: None. FINDINGS: There is normal compressibility, flow, and augmentation within the right lower extremity deep venous system. IMPRESSION: No DVT within the right lower extremity ACT 112: Negative or not required by law. Electronically signed by: Dada Valiente M.D. 03/07/2023 3:03 PM Abdomen/Pelvis CT 03/07/23 14:20 CT abd pelvis IV con only CLINICAL HISTORY: ab distension, vomiting TECHNIQUE: Helical axial images of the abdomen and pelvis were obtained and displayed. Automated dose lowering techniques and/or adjustment according to patient size were utilized for this exam. This exam was performed with intravenous contrast. CT DOSE: 1300.29 mGy.cm COMPARISON: Comparison is made to CT abdomen pelvis 12/11/2021 FINDINGS: Lower chest: Trace pleural effusion is seen in the right lung. Multiple bilateral right nodules are seen measuring up to 5 mm in the right lower lobe. Liver: Unremarkable. No focal lesions are seen. Gallbladder and biliary tree: Patient is status post cholecystectomy. Intra or extrahepatic biliary ductal dilation is seen. Pancreas: Unremarkable, no focal lesions. Spleen: Splenule is incidentally noted. Adrenals: Unremarkable. Kidneys and ureters: Unremarkable. Bladder: Unremarkable. Reproductive organs: Patient is status post hysterectomy. Bowel: Diverticulosis is seen without evidence of diverticulitis. There is a moderate hiatal hernia. Lymph nodes Retroperitoneal: Unremarkable. Pelvic: Unremarkable. Mesenteric: Unremarkable. Peritoneum: Large ascites is seen. Vessels: Atherosclerotic calcifications are seen. Infrarenal aortic aneurysm measures 32 mm in diameter. Abdominal wall: Unremarkable. Bones: Degenerative changes in the visualized spine. Previously noted inferior endplate compression deformity of L1 is unchanged. IMPRESSION: 1. Large volume ascites is seen, new from prior exam. 2. Diverticulosis without diverticulitis. 3. Trace pleural effusion in the right lung. Multiple pulmonary nodules are seen. Although no recent studies available for comparison, this is new from the chest CT of the 05/07/2018 as well as the prior abdominal CT. If no recent imaging is available, nonemergent diagnostic CT chest can be performed. ACT 112: Negative or not required by law. Electronically signed by: Brian Alexandre M.D. 03/07/2023 3:41 PM Chest X-Ray 03/07/23 14:20 XR chest 1V portable CLINICAL HISTORY: cough, SOB TECHNIQUE: Single frontal radiograph of the chest was obtained. Comparison: Comparison is made to chest radiograph 12/11/2021 FINDINGS: Exam is limited by underpenetration. Cardiomegaly is noted. Faint bibasilar airspace opacities are seen. Prominence of the pulmonary vasculature is seen. No evidence of pleural effusion or pneumothorax. IMPRESSION: 1. Faint bibasilar airspace opacities which may represent atelectasis, pneumonia, and/or aspiration. 2. Mild pulmonary vascular congestion. ACT 112: Negative or not required by law. Electronically signed by: Brian Alexandre M.D. 03/07/2023 3:46 PM Discharge Plan Visit Data Chief Complaint: Leg Injury/Pain Stated Complaint: RED, SWOLLEN, SORE (R) LEG ED Provider: Josue Acuna Discharge Problem: Cellulitis of right lower extremity, Ascites, Leg edema, Pulmonary nodules Patient Disposition: Admitted As Inpatient Discharge Instructions Interventions: ED Discharge Assessment Last Done: 03/08/23 02:37 Discharge Problem: Ascites Qualifiers: Ascites type: other type Qualified Code(s): R18.8 - Other ascites
[2023-03-07] MEDS ORDERED: OPTIRAY 320 500ml IV ONE (14:56)
--- NOTE | 2023-03-07 15:04 | Ultrasound Report ---
RIGHT LOWER EXTREMITY VENOUS DOPPLER HISTORY: Right leg Increased swelling/redness COMPARISON STUDY: None. FINDINGS: There is normal compressibility, flow, and augmentation within the right lower extremity de ep venous system. IMPRESSION: No DVT within the right lower extremity ACT 112: Negative or not required by law. Electronically signed by: Dada Valiente M.D. 03/07/2023 3:03 PM
--- NOTE | 2023-03-07 15:43 | CT Scan Report ---
CT abd pelvis IV con only CLINICAL HISTORY: ab distension, vomiting TECHNIQUE: Helical axial images of the abdomen and pelvis were obtained and displayed. Automated dose lowering techniques and/or adjustment according to patient size were utilized for this exam. This e xam was performed with intravenous contrast. CT DOSE: 1300.29 mGy.cm COMPARISON: Comparison is made to CT abdomen pelvis 12/11/2021 FINDINGS: Lower chest: Trace pleural effusion is seen in the right lung. Multiple bilateral right nodules are seen measuring up to 5 mm in the right lower lobe. Liver: Unremarkable. No focal lesions are seen. Gallbladder and biliary tree: Patient is status post cholecystectomy. Intra or extrahepatic biliary d uctal dilation is seen. Pancreas: Unremarkable, no focal lesions. Spleen: Splenule is incidentally noted. Adrenals: Unremarkable. Kidneys and ureters: Unremarkable. Bladder: Unremarkable. Reproductive organs: Patient is status post hysterectomy. Bowel: Diverticulosis is seen without evidence of diverticulitis. There is a moderate hiatal hernia. Lymph nodes Retroperitoneal: Unremarkable. Pelvic: Unremarkable. Mesenteric: Unremarkable. Peritoneum: Large ascites is seen. Vessels: Atherosclerotic calcifications are seen. Infrarenal aortic aneurysm measures 32 mm in diamet er. Abdominal wall: Unremarkable. Bones: Degenerative changes in the visualized spine. Previously noted inferior endplate compression d eformity of L1 is unchanged. IMPRESSION: 1. Large volume ascites is seen, new from prior exam. 2. Diverticulosis without diverticulitis. 3. Trace pleural effusion in the right lung. Multiple pulmonary nodules are seen. Although no recent studies available for comparison, this is new from the chest CT of the 05/07/2018 as well as the prio r abdominal CT. If no recent imaging is available, nonemergent diagnostic CT chest can be performed. ACT 112: Negative or not required by law. Electronically signed by: Brian Alexandre M.D. 03/07/2023 3:41 PM
[2023-03-07 15:46] LABS: INR 3.6 (0.9-1.1); Partial Thromboplastin Ratio 1.7; Prothrombin Time 36.3 Seconds (9.0-12.0)
--- NOTE | 2023-03-07 15:47 | XRay Report ---
XR chest 1V portable CLINICAL HISTORY: cough, SOB TECHNIQUE: Single frontal radiograph of the chest was obtained. Comparison: Comparison is made to chest radiograph 12/11/2021 FINDINGS: Exam is limited by underpenetration. Cardiomegaly is noted. Faint bibasilar airspace opacities are se en. Prominence of the pulmonary vasculature is seen. No evidence of pleural effusion or pneumothorax. IMPRESSION: 1. Faint bibasilar airspace opacities which may represent atelectasis, pneumonia, and/or aspiration. 2. Mild pulmonary vascular congestion. ACT 112: Negative or not required by law. Electronically signed by: Brian Alexandre M.D. 03/07/2023 3:46 PM
[2023-03-07 15:48] LABS: Partial Thromboplastin Time 47.4 Seconds (21.0-31.0)
[2023-03-07 16:17] LABS: Adenovirus PCR Not Detected (NotDetected); Bordetella parapertussis PCR Not Detected (NotDetected); Bordetella pertussis PCR Not Detected (NotDetected); Chlamydia pneumoniae PCR Not Detected (NotDetected); Coronavirus 229E PCR Not Detected (NotDetected); Coronavirus CoV-2 (COVID19)PCR Not Detected (NotDetected); Coronavirus HKU1 PCR Not Detected (NotDetected); Coronavirus NL63 PCR Not Detected (NotDetected); Coronavirus OC43PCR Not Detected (NotDetected); Human Metapneumovirus PCR Not Detected (NotDetected); Influenza A PCR Not Detected (NotDetected); Influenza B PCR Not Detected (NotDetected); Mycoplasma pneumoniae PCR Not Detected (NotDetected); Parainfluenza Virus 1 PCR Not Detected (NotDetected); Parainfluenza Virus 2 PCR Not Detected (NotDetected); Parainfluenza Virus 3 PCR Not Detected (NotDetected); Parainfluenza Virus 4 PCR Not Detected (NotDetected); Respiratory Syncytial VirusPCR Not Detected (NotDetected); Rhinovirus/Enterovirus PCR Not Detected (NotDetected)
[2023-03-07] MEDS ORDERED: cefTRIAXone SODIUM 2,000 MG/50 ML BAG IV STA (17:02)
--- NOTE | 2023-03-07 17:39 | History & Physical Report ---
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 During physical exam it is also noted that the patient has ascites which was brought up after this discovery. -Admit to [facility] with telemetry, telemetry indication being cardiomegaly with new ascites -CT of the abdomen pelvis demonstrating normal liver as well as normal lab work making hepatic cause less likely -More likely to be due to undiagnosed heart failure in the setting of possible new lung cancer with noted pulmonary nodules on CT of the abdomen, evaluating this further with CT of the chest, see below -GI consulted for paracentesis, appreciate recommendations and treatment -Echocardiogram in the morning, CT of the chest pending -If new heart failure, consult cardiology (2) Pulmonary nodules: Plan: -Incidental finding on CT of the abdomen and pelvis -CT of the chest ordered and pending -May represent new lung cancer especially in the setting of ascites, will await official read (3) Cellulitis of right lower extremity: Plan: -Likely secondary to chronic vascular insufficiency with recent exacerbation -Started on Rocephin every 24 hours if continued improvement, can switch to Keflex or cefdinir for outpatient treatment -Blood cultures ordered and pending, tailor treatment to results (4) Leg edema: Plan: -Multifactorial in the setting of vascular insufficiency and what appears to be new heart failure -Compression stockings recommended as well as typical management -May require diuretic especially if oxygen saturation were to decrease, but stable for now and without oxygen supplementation (5) History of DVT (deep vein thrombosis): Plan: -Remote history of 2 provoked DVT in the past per patient history and has been on warfarin for the past 15 years -Given likely paracentesis, given 2.5 mg of IV phytonadione for reversal, INR in morning may repeat dose if necessary -May resume warfarin after paracentesis (6) COPD, moderate: Plan: - Continue albuterol as needed for shortness of breath/wheezing (7) DM type 2 (diabetes mellitus, type 2): Plan: - Diet controlled with no oral medications -Withhold sliding scale with insulin for now, last A1c was 6.4 (8) Hypothyroidism: Plan: -Continue levothyroxine (9) Hypercholesterolemia: Plan: - Noted, no statin being taken (10) History of lung cancer: Plan: dx in 12/2012, s/p R thoracotomy and lower lobectomy in 04/2013. She is following w/ Dr. Dent, H/O--advised no need for adjuvant radiation/chemo. - PET scan completed in November of 2014 - no metastatic disease - CT scan chest November 2017 stable findings with no signs of metastatic or malignant disease - from [facility]- every 6 months- stable findings (11) Hypertension: Plan: - On Lasix every other day at home but does appear somewhat intravascularly depleted on exam, hold for now (12) Bipolar disorder: Plan: - Continue lithium daily Plan Disposition: Admit to [facility] with telemetry for further work-up in regard to ascites and treatment for cellulitis, GI consulted for paracentesis, reversing warfarin with vitamin K derivative DVT prophylaxis: Contraindicated given upcoming paracentesis Diet: Low-sodium CODE STATUS: DNR/DNI History of Present Illness Chief Complaint: RLE swelling Primary Care Provider: Kristel Morfin MD Serenity Simmons is an 83-year-old female with a past medical history of previous non-small cell lung cancer status post lobectomy, 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 During physical exam it is also noted that the patient has ascites which was brought up after this discovery. In terms of the right lower extremity edema, it seems to be a chronic issue, however, over the past few days she has had bright red rash that is hot to the touch develop as well as worsening of the lower extremity edema. She denies a history of congestive heart failure. She reports she is having some dyspnea with exertion such as walking from room to room in her home. Typically does not feel dyspnea at rest but does occur sometimes. She does have a smoking history. She smoked for 15 years but quit 13 years ago. For 15 years she smoked a pack a day. Patient did have nonsmall cell lung cancer that did not require chemotherapy and was treated with lobectomy per the patient's history quite a few years ago. In terms of abdominal fullness, patient reports that she has noticed this for the past couple of weeks. She has also been having nausea, some vomiting, and acid reflux. She had seen her primary care provider about this and she was started on a PPI which she feels had minimal to no improvement in her symptoms. She is able to keep some amounts of food down and is hungry at the time of my interview. Reports no history of liver issues. Patient does not drink alcohol. No frequent Tylenol use. After the lung cancer that she had, reports no history of cancers after. There is a family history of colon cancer and lung cancer in primary relatives (her parents). Additionally it was noted that the patient did consume a large amount of water a few days ago because she has been feeling dehydrated and she continues to feel this way currently. Otherwise no other complaints ED course: Patient evaluated by provider at bedside. Labs are significant for white blood cell count of 16.03 with a neutrophilic predominance, INR of 3.6, APTT of 47.4, creatinine of 1.27 with a baseline of 1.30, glucose of 157, procalcitonin of 1.6, negative bio fire. Liver enzymes are within normal limits. Ultrasound of the right lower extremity is negative for DVT. CT of the abdomen and pelvis is significant for large ascites which is new, diverticulosis without diverticulitis, trace pleural effusion in the right lung with multiple pulmonary nodules seen which is new from a CT done in 2019. Chest x-ray is significant for faint bibasilar air space opacities which may represent atelectasis, pneumonia, and/or aspiration and mild pulmonary vascular congestion noted. Cardiomegaly is also noted. Patient was started on Rocephin due to concern for cellulitis. Blood cultures were taken prior to administration and are pending. MRSA nares also done. The hospitalist service was then consulted for admission for further work-up and treatment for both cellulitis and new onset ascites. Allergies Allergy/AdvReac Type Severity Reaction Status Date / Time Penicillins Allergy Severe THROAT Verified 03/07/23 17:24 SWELLING Sulfa (Sulfonamide Allergy Severe "PAINS IN Verified 11/20/23 17:24 Antibiotics) MY HEART" benzalkonium AdvReac Unknown Verified 03/07/23 17:24 Cephalosporins AdvReac Unknown Verified 03/07/23 17:24 oxycodone AdvReac Unresponsiv Verified 03/07/23 17:24 e sulfacetamide AdvReac Unknown Verified 03/07/23 17:24 Home Medications Medication Instructions Recorded Confirmed Type acetaminophen 500 mg capsule 1,000 mg PO Q6H PRN Pain 05/12/19 02/22/23 History (Tylophen) cholecalciferol (vitamin D3) 50 2,000 unit PO QAM 05/12/19 02/22/23 History mcg (2,000 unit) capsule mecobalamin (vitamin B12) 1,000 1,000 mcg sublingual DAILY #30 tabs 07/28/20 02/22/23 Rx mcg disintegrating tablet,sublingual betamethasone dipropionate 0.05 % 1 applic topical BID PRN skin 01/28/21 02/22/23 Rx topical cream irritation #15 grams lithium carbonate 300 mg 300 mg PO DAILY #30 tabs 01/13/22 03/07/23 Rx tablet,extended release albuterol sulfate 90 mcg/actuation 1 inh inhalation QID PRN shortness 08/17/22 03/07/23 Rx aerosol inhaler of breath or wheezing #8.5 grams levothyroxine 88 mcg tablet 88 mcg PO DAILY #90 tabs 08/17/22 03/07/23 Rx (Synthroid) methenamine hippurate 1 gram 1 g PO QPM #30 tabs 12/31/22 03/07/23 Rx tablet (Hiprex) donepezil 5 mg tablet (Aricept) 5 mg PO HS #90 tabs 02/22/23 03/07/23 Rx furosemide 20 mg tablet 20 mg PO Q OTHER DAY #30 tabs 02/22/23 03/07/23 Rx pantoprazole 40 mg tablet,delayed 40 mg PO DAILY #30 tabs 02/22/23 03/07/23 Rx release warfarin 3 mg tablet 3 mg PO DAILY #30 tabs 02/22/23 02/22/23 Rx warfarin 4 mg tablet 4 mg PO DIRECTED #90 tabs 02/22/23 02/22/23 Rx Past Med/Surg History Medical History (Updated 03/07/23 @ 21:23 by Luis Daniels DO) Leg swelling Right foot strain Left arm pain Skin lesion Non-ST elevation myocardial infarction (NSTEMI) of indeterminate age Diarrhea Hypotension COVID-19 Pre-op evaluation Valvular heart disease Per 2014 echo: There is mild mitral regurgitation. There is mild to moderate tricuspid regurgitation. Obesity Hypertension Hyperlipidemia Anemia Elevated glucose level History of pulmonary embolism Hypokalemia Pulmonary hypertension Per 2014 echo:Moderate pulmonary hypertension suggested; estimated RVSP 56 mmHg. Recurrent UTI (urinary tract infection) Chronic kidney disease STAGE 3 History of DVT (deep vein thrombosis) 1ST ONE 40 YEARS AGO AFTER CHILDBIRTH, 2ND DVT FOLLOWING EXTENDED BED REST APPROX 10 YEARS AGO Asthma no inhaler Toppers toxicity C. difficile colitis PT UNSURE OF EXACT DATE. DX AND TREATED AT [facility]. NO COMPLICATIONS SINCE Septic shock PT WAS ADMITTED MAR 2018 FOR SEVERE UTI WITH SHOCK Atrial flutter HX OF A-FLUTTER. PT HAD CARDIOVERSION [address] JACOBO. REMAINS STABLE. Non-small cell carcinoma of lung TUMOR EXCISION, NO CHEMO REQUIRED [facility] Bipolar disorder (11/11/12) Surgical History S/P lobectomy of lung RLL [facility] 04/23/2013 S/P total knee arthroplasty History of left knee replacement 07/05/2018 [facility] S/P total knee arthroplasty S/P total knee arthroplasty History of partial hysterectomy History of phacoemulsification of cataract of both eyes with intraocular lens implantation H/O varicose vein stripping BILATERAL LOWER EXTREMITIES Hx of cholecystectomy History of lung surgery TUMOR EXCISION, NO CHEMO REQUIRED. PT UNSURE OF DATE OF TYPE OF SURGERY History of cardioversion Family History Sister Breast cancer Colorectal cancer Mother Colorectal cancer Diabetes Father Lung cancer Brother Prostate cancer Denies family history of Ovarian cancer Myocardial infarction Social History Smoking Status: Former smoker Tobacco Type: Cigarettes packs per day: 1; Cigarettes Per Day: 10; Second Hand Exposure: No; Do You Dip or Chew Tobacco: No; Hx Alcohol Use: No Hx Substance Use: No Preferred Language: Persian Communication Ability: Effective Visual Impairment: Limited Mathematics Technician Required: No Beliefs That Will Affect Care: None marital status: / Current Living Situation: Alone current occupational status: retired How many Children do You have: 3 Other Information That Helps Us Care for You: No Feels Safe at Home: Yes and No Is there a partner from a previous relationship who is making you feel unsafe now?: No Any Concerns about Your Family Situation: No Would You Like to Speak to Someone About Your Situation: No Safety Concerns: Feels Safe At This Time Childhood Exposure to Second-Hand Smoke: Yes Dental Care, Regularly: Yes Physical Activity Frequency: Does not Exercise Seatbelt Use: always Sunscreen Use: No Assistive Devices: Cane, Denture - Upper, Glasses and Walker Review of Systems 2 Review of Systems: All systems reviewed & are unremarkable except as noted in HPI & below Physical Exam 2 Physical Exam: Constitutional: well developed, + obese and cooperative; no acute distress Eyes: + anicteric sclerae Neck: trachea midline, no thyromegaly normal visual inspection Respiratory: normal respiratory effort Difficulty with auscultation due to body habitus, but faint crackles auscultated at the L base. Cardiovascular: Heart Sounds: + murmur (2/6 systolic murmur) Extremities: + edema (2-3+ non-pitting b/l) Gastrointestinal (Abdomen): Inspection/Auscultation: + abdomen distended and + abdominal edema Percussion/Palpation: + abdomen rigid, + ascites and + fluid wave; abdomen nontender Musculoskeletal: Head/Neck/Chest: normocephalic and head atraumatic Skin: normal turgor and + erythema (RLE erythema with clear demarcation) Neurologic: moves all extremities Psychiatric: A+Ox3, euthymic affect Results & Data Results & Data Vital Signs (Past 12 Hours) Vital Signs Temp Pulse Pulse Resp BP BP Pulse Ox 03/07/23 15:50 90 20 129/66 95 03/07/23 14:05 92 H 20 121/62 94 03/07/23 11:42 36.7 C 92 H 18 114/58 L 97 O2 Del Method 03/07/23 15:50 Room Air 03/07/23 14:05 Room Air 03/07/23 11:42 Room Air Laboratory Results Abnormal lab results 03/07/23 03/07/23 Range/Units 12:51 14:31 WBC 16.03 H (4.8-10.8) K/ul RBC 4.18 L (4.20-5.40) M/uL Neut # (Auto) 14.17 H (1.40-6.50) K/uL PT 36.3 H (9.0-12.0) Seconds INR 3.6 H (0.9-1.1) APTT 47.4 H* (21.0-31.0) Seconds Creatinine 1.27 H (0.6-1.2) mg/dl Glucose 157 H (70-99(Fasting)) mg/dl Diagnostic Findings XR chest 1V portable CLINICAL HISTORY: cough, SOB TECHNIQUE: Single frontal radiograph of the chest was obtained. Comparison: Comparison is made to chest radiograph 12/11/2021 FINDINGS: Exam is limited by underpenetration. Cardiomegaly is noted. Faint bibasilar airspace opacities are seen. Prominence of the pulmonary vasculature is seen. No evidence of pleural effusion or pneumothorax. IMPRESSION: 1. Faint bibasilar airspace opacities which may represent atelectasis, pneumonia, and/or aspiration. 2. Mild pulmonary vascular congestion. CT abd pelvis IV con only CLINICAL HISTORY: ab distension, vomiting TECHNIQUE: Helical axial images of the abdomen and pelvis were obtained and displayed. Automated dose lowering techniques and/or adjustment according to patient size were utilized for this exam. This exam was performed with intravenous contrast. CT DOSE: 1300.29 mGy.cm COMPARISON: Comparison is made to CT abdomen pelvis 12/11/2021 FINDINGS: Lower chest: Trace pleural effusion is seen in the right lung. Multiple bilateral right nodules are seen measuring up to 5 mm in the right lower lobe. Liver: Unremarkable. No focal lesions are seen. Gallbladder and biliary tree: Patient is status post cholecystectomy. Intra or extrahepatic biliary ductal dilation is seen. Pancreas: Unremarkable, no focal lesions. Spleen: Splenule is incidentally noted. Adrenals: Unremarkable. Kidneys and ureters: Unremarkable. Bladder: Unremarkable. Reproductive organs: Patient is status post hysterectomy. Bowel: Diverticulosis is seen without evidence of diverticulitis. There is a moderate hiatal hernia. Lymph nodes Retroperitoneal: Unremarkable. Pelvic: Unremarkable. Mesenteric: Unremarkable. Peritoneum: Large ascites is seen. Vessels: Atherosclerotic calcifications are seen. Infrarenal aortic aneurysm measures 32 mm in diameter. Abdominal wall: Unremarkable. Bones: Degenerative changes in the visualized spine. Previously noted inferior endplate compression deformity of L1 is unchanged. IMPRESSION: 1. Large volume ascites is seen, new from prior exam. 2. Diverticulosis without diverticulitis. 3. Trace pleural effusion in the right lung. Multiple pulmonary nodules are seen. Although no recent studies available for comparison, this is new from the chest CT of the 05/07/2018 as well as the prior abdominal CT. If no recent imaging is available, nonemergent diagnostic CT chest can be performed. RIGHT LOWER EXTREMITY VENOUS DOPPLER HISTORY: Right leg Increased swelling/redness COMPARISON STUDY: None. FINDINGS: There is normal compressibility, flow, and augmentation within the right lower extremity deep venous system. IMPRESSION: No DVT within the right lower extremity Medications Administered ER Medications Given: Ceftriaxone 2g IV Supervising Physician Co-Signing Physician Notes I personally saw and examined the patient. I verified all schofield points and agree with resident physician Dr Luis Dillon, with the following exceptions and/or additions: 83 year old female who presents to the ER with right leg swelling. She reports this has been only ongoing for the last 2 days but does not appear to be able to provide a reliable history as she also reports no problems with her abdomen however it is clearly extremely distended with a large amount of ascites on. She is unable to say how long she has had abdominal distension for as she didn't realize it was distended in the first place O/E Alert and orientated to person and place but not time, Chest reduced air entry throughout, no rhonchi or wheezing, HS RRR, no murmurs, abdo distended, BS normal, non tender b/l LE edema 2+ pitting A/P Left leg cellulitis - blood cultures (notably taken after first dose of antibiotics as not ordered by ER. Ceftriaxone 2g IV (no history of MRSA), plan to expand coverage to MRSA if not effective but patient is not septic therefore deferred on admission New onset ascites - US guided paracentesis tomorrow, reverse INR as above. Protein/Cr ratio added to assess for renal involvement. TTE for cardiac involvement. Liver unremarkable on CT A/P. Concerning findings on CT A/P for lung cancer and will get routine CT chest to assess this better whether it is the cause of the ascites. PG Care Time/CCT Total # of Minutes Spent Total Time Spent with Patient: Total time spent is greater than 50% in coordination of care (as documented) at patient's floor/unit and/or counseling patient: Coding Level of Care Code None Diagnoses Other ascites R18.8 Ascites type: other type Pulmonary nodules R91.8 Cellulitis of right lower extremity L03.115 Leg edema R60.0 History of DVT (deep vein thrombosis) Z86.718 COPD, moderate J44.9 DM type 2 (diabetes mellitus, type 2) E11.9 Hypothyroidism E03.9 Hypercholesterolemia E78.00 History of lung cancer Z85.118 Primary hypertension I10 Hypertension type: primary hypertension Bipolar disorder F31.9 (1) Ascites Ascites type: other type Qualified Code(s): R18.8 - Other ascites (11) Hypertension Hypertension type: primary hypertension Qualified Code(s): I10 - Essential (primary) hypertension
[2023-03-07] MEDS ORDERED: ACETAMINOPHEN 325 MG TAB PO PRN (19:53)
[2023-03-07] MEDS ORDERED: ONDANSETRON INJ 2 MG/ML 2 ML VIAL IV PRN (19:53)
[2023-03-07] MEDS ORDERED: POLYETHYLENE (MIRALAX) 17 GM PACK PO PRN (19:53)
[2023-03-07] MEDS ORDERED: ALBUTEROL HFA 8 GM INHALER INH PRN (19:53)
[2023-03-07] MEDS ORDERED: PHYTONADIONE 2.5 MG in DEXTROSE 5% 50 ML IV ONE (21:17)
[2023-03-07] MEDS: DONEPEZIL HCL 5 MG TAB PO SCH (21:42)
--- NOTE | 2023-03-08 00:28 | CT Scan Report ---
Exam(s): CT CHEST Without Contrast EXAM: CT Chest Without Intravenous Contrast CLINICAL HISTORY: Reason for exam: Diagnostic, pulmonary nodules, previous lung cance. TECHNIQUE: Axial computed tomography images of the chest without intravenous contrast. CTDI is 27.07 mGy and DLP is 820.52 mGy-cm. Automated exposure control was utilized for the study. A dose lowering technique was utilized adhering to the principles of ALARA. COMPARISON: 07/08/2018. FINDINGS: Lungs: Right lower lobe consolidation with interstitial thickening and mild groundglass opacity suggestive of pneumonia versus atelectasis. There are emphysematous changes in the bilateral upper lobe/lung apices. There is a small right lower lobe nodule, image 34, series 3 measuring 5 mm. There is a second adjacent subpleural nodularity versus round atelectasis measuring 13 mm, image 35, series 3. Remainder of the lung parenchyma is clear. Pleural space: There is mild right-sided pleural effusion. No pneumothorax. Heart: Unremarkable. No cardiomegaly. No significant pericardial effusion. Normal cardiac size with coronary artery calcifications. Bones/joints: See below. Soft tissues: Unremarkable. Vasculature: Atherosclerotic disease of aorta with no aneurysm. Lymph nodes: Unremarkable. No enlarged lymph nodes. Intraperitoneal space: There is moderate to large ascites in the upper abdomen, etiology indeterminate. There is degenerative disease of the spine with osteopenia. IMPRESSION: 1. Right lower lobe pneumonitis versus atelectasis. In the context of known neoplasm, and given interstitial prominence with some reticular pattern and nodularities, differential diagnosis includes carcinomatosis. 2. Question 5 mm nodule with second nodule measuring 13 mm versus round atelectasis. Recommend follow-up CT in 3-6 months to evaluate resolution, depending on clinical presentation, and prior history. 3. Moderate to large ascites with mild right-sided pleural effusion. Electronically signed by: Judy Zaman MD 03/08/23 00:27 AM
[2023-03-08 05:56] LABS: Hematocrit (blood only) 36.5 % (37.0-47.0); Hemoglobin 11.9 g/dl (12.0-16.0); Mean Corpuscular Hemoglobin 29.5 pg (25.0-34.0); Mean Corpuscular Hgb Conc 32.6 g/dL (32.0-36.0); Mean Corpuscular Volume 90.6 fL (80.0-100.0); Mean Platelet Volume 11.1 fL (9.4-12.4); Platelet Count 269 K/uL (130-400); RDW Coefficient of Variation 13.7 % (11.5-14.5); RDW Standard Deviation 45.1 fL (36.4-46.3); Red Blood Count 4.03 M/uL (4.20-5.40); White Blood Count 12.62 K/ul (4.8-10.8)
[2023-03-08 06:09] LABS: INR 1.6 (0.9-1.1); Partial Thromboplastin Ratio 1.3; Partial Thromboplastin Time 35.9 Seconds (21.0-31.0); Prothrombin Time 16.6 Seconds (9.0-12.0)
[2023-03-08] MEDS: LEVOTHYROXINE SODIUM 88 MCG TABLET PO SCH (06:22)
[2023-03-08 06:29] LABS: Appearance Urine Cloudy (Clear); Bilirubin Urine Negative (Negative); Blood Urine Trace (Negative); Color Urine Yellow; Glucose Urine UA Negative (Negative); Ketones Urine Negative (Negative); Leukocyte Esterase Urine 3+ (Negative); Nitrite Urine Negative (Negative); Protein Urine Negative (Negative); Urobilinogen Urine Negative (Negative); pH Urine 6.5 (4.5-7.5)
[2023-03-08 06:46] LABS: Cast Urine Automated 0 /lpf (0-5)
[2023-03-08 06:47] LABS: Bacteria Urine Automated 4+ (Negative); WBC Urine Automated >30 /hpf (0-5)
--- NOTE | 2023-03-08 07:04 | Hospitalist Progress Note ---
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, previous atrial flutter status post ablation in 2015, COPD, pulmonary hypertension, venous insufficiency, hypertension, hypothyroidism, hyperlipidemia, and DM 2 who presents to the hospital for evaluation of right lower extremity edema and ascites Ascites: -Noted on admission -CT of the abdomen pelvis demonstrating normal liver as well as normal lab work making hepatic cause less likely -unknown etiology, undiagnosed heart failure vs new lung cancer -Paracentesis done today, 1 L --->patient felt much better after -Will repeat therapeutic paracentesis tomorrow, albumin after -Pending cytology results -Echocardiogram: Severe pulmonary HTN, EF 60-65%, septal flattering during diastole suggest RV volume overload, Mildly dilated right ventricle with normal systolic fucntion -Prob home tomorrow Pulmonary nodules: - Incidental finding on CT of the abdomen and pelvis -CT of the chest: Right lower lobe pneumonitis versus atelectasis, differential diagnosis includes carcinomatosis. Question 5 mm nodule with second nodule measuring 13 mm versus round atelectasis. Moderate to large ascites with mild right-sided pleural effusion. -May represent new lung cancer especially in the setting of ascites, see above Cellulitis of right lower extremity: - Likely secondary to chronic vascular insufficiency with recent exacerbation -Started on Rocephin every 24 hours if continued improvement, can switch to Keflex or cefdinir for outpatient treatment -Blood cultures pending Leg edema: - Multifactorial in the setting of vascular insufficiency and what appears to be new heart failure -Ultrasound: negative for DVT -Compression stockings History of DVT (deep vein thrombosis): - Remote history of 2 provoked DVT in the past per patient history and has been on warfarin for the past 15 years -Given likely paracentesis, given 2.5 mg of IV phytonadione for reversal, INR in morning may repeat dose if necessary -May resume warfarin after paracentesis COPD, moderate: - Continue albuterol as needed for shortness of breath/wheezing DM type 2 (diabetes mellitus, type 2): - Diet controlled with no oral medications -Withhold sliding scale with insulin for now, last A1c was 6.4 Hypothyroidism: -Continue levothyroxine Hypercholesterolemia: - Noted, no statin being taken History of lung cancer: dx in 12/2012, s/p R thoracotomy and lower lobectomy in 04/2013. She is following w/ Dr. Dent, H/O--advised no need for adjuvant radiation/chemo. - PET scan completed in November of 2014 - no metastatic disease - CT scan chest November 2017 stable findings with no signs of metastatic or malignant disease - from [facility]- every 6 months- stable findings Hypertension: - On Lasix every other day at home but does appear somewhat intravascularly depleted on exam, hold for now Bipolar disorder: - Continue lithium daily Plan Disposition: Admit to [facility] with telemetry for further work-up in regard to ascites and treatment for cellulitis, GI consulted for paracentesis, reversing warfarin with vitamin K derivative DVT prophylaxis: Contraindicated given upcoming paracentesis Diet: Low-sodium CODE STATUS: DNR/DNI Admission and Anticipated Discharge Date Admission Date: March 07, 2023 Supervising Physician Co-Signing Physician Notes I personally examined the patient and verified all schofield points of history and exam, discussed case, and agree with decision making with Dr Misael Barbosa Feels much better since paracentesis. Discussed differentials and pending tests with patient and son. Discussed given that she did well with diagnostic paracentesis, we could also proceed with therapeutic to try to get even more symptom relief. Vitals noted, in general she is awake and alert pleasant no distress. HEENT normocephalic atraumatic mucous membranes moist. Breathing unlabored no accessory muscle use good effort. Right lower extremity with erythema, but appears much better than picture noted from yesterday. Patient herself notes it feels much better as well. Echocardiogram noted, peritoneal fluid studies noted. New onset asciteswhile she does have severe pulmonary hypertension, making right heart failure leading to ascites possible, the lack of any liver findings/hepatic congestion type findings makes this less likely; her prior cancer as well as a degree of lymphangitic appearance on her chest CT make it very concerning for malignant ascites (as does her serumalbumin ascites gradient and high white count with only 1 neutrophilmaking it look rather inflammatory without infection). Await cytology, no clear need for antibiotics for this, right now I would look at her pulmonary hypertension/right heart failure as probably a separate problem rather than the cause of her ascites Pulmonary hypertensionas above noted, without clear or overt respiratory symptoms or signs of hepatic congestion, while she has severe enough pulmonary hypertension/right heart failure that passive congestion could lead to ascites, I am not certain that is the case right now. She does not appear to have any parenchymal lung disease that would drive this, and less the small area of carcinomatosis is only with showing up on CT and she has diffuse carcinomatosis that is notsee below otherwise. I am more suspicious of undiagnosed and untreated OSAwe will work on getting this evaluated as an outpatient. Because of the severe pulmonary hypertension, and the chance that we may be able to save her the sleep study, while I doubt she has a hypoventilation syndrome, I will check an overnight pulse ox and a.m. ABG to try to save her the wait of getting a sleep study done as an outpatient. CT findings consistent with carcinomatosiswe will get her reevaluated with oncology as an outpatient right lower extremity cellulitisimproving on ceftriaxone. Prior venous thromboembolic diseasechronically on Coumadin, temporarily reversed for procedures, resume Coumadin again tomorrow. 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 During evaluation patient found with ascites. She refers swelling of legs are chronic, but she started noticed a red rash on her right lower extremities that was hot to touch as well worsening edema. No hx of congestive heart failure, but she refers some SOB, dyspnea on exertion. She have hx of nonsmall cell lung cancer s/p lobectomy, no chemotherapy needed at the time. She smoked for 15 years but quit 13 years ago. For 15 years she smoked a pack a day. During evaluation on admission, ascites was noted. PT refers this has been going for a a couple of weeks. She also refers nausea, vomiting and acid reflux. PCP started her on PPI which not improved symptoms. She denied any liver problems, any alcohol use, no tylenol use. Family hx of colon cancer and lung cancer in primary relatives She denied any weight loss, any fever, chills, cough, diarrhea, chest pain, palpitations or any other complains Review of Systems Review of Systems: as per HPI Physical Exam Constitutional: WD/WN, vitals as above + obese; no acute distress Respiratory: Auscultation: + diminished lung sounds Cardiovascular: Rate/Rhythm: regular rate and regular rhythm Heart Sounds: + murmur Extremities: + edema (non pitting) Skin: + dry skin erythema on RLE clear demarcation, less erythematous compared with admission Results & Data Results & Data Vital Signs (Past 12 Hours) Vital Signs Temp Pulse Pulse Resp BP Pulse Ox O2 Del Method 03/08/23 03:11 80 03/08/23 02:48 36.7 C 90 24 135/74 94 Room Air 03/08/23 02:37 Room Air 03/08/23 02:10 Room Air 03/07/23 23:06 86 03/07/23 19:02 79 Resident Activity Tracking Resident Involvement: Resident Care Provided Care Provided: Adult Hospital Medicine (1) Ascites Ascites type: other type Qualified Code(s): R18.8 - Other ascites (11) Hypertension Hypertension type: primary hypertension Qualified Code(s): I10 - Essential (primary) hypertension
[2023-03-08 07:09] LABS: Albumin Level 3.3 gm/dl (3.4-5.0); Calcium 9.9 mg/dl (8.6-10.3); Potassium 3.9 mmol/L (3.5-5.1)
[2023-03-08 07:15] LABS: Albumin Globulin Ratio 0.9 (0.9-2); BUN Creatinine Ratio 12.8 (10-20); Creatinine Clr Calc Pharmacy 35.7 ml/min; Est GFR (African American) 42.4 ml/min; Est GFR (Non-African American) 36.6 ml/min; Globulin 3.8 gm/dl (2.5-4.0); Total Protein 7.1 gm/dl (6.0-8.3)
[2023-03-08 08:04] LABS: Total Protein Urine Random 19.5 mg/dl (0-11.9)
[2023-03-08 08:10] LABS: Creatinine Urine Random 25.6 mg/dl; Protein Creatinine Ratio Urine 0.8 (0-0.2)
[2023-03-08] MEDS: LITHIUM CARBONATE SLOW REL 300 MG TAB PO SCH (08:56)
[2023-03-08] MEDS: PANTOprazole 40 MG TAB PO SCH (08:56)
--- NOTE | 2023-03-08 11:01 | Billing Data ---
Date of Service March 07, 2023 Coding Level of Care Code 45901 INT INP/OBS CARE
--- NOTE | 2023-03-08 15:21 | Ultrasound Report ---
Ultrasound-guided paracentesis INDICATION: Ascites PROCEDURE: Procedure and risks explained. Informed consent was obtained. A final timeout was complete d. The abdomen was prepped and draped in sterile fashion. 1% buffered lidocaine was utilized for skin anesthesia. Utilizing ultrasound guidance, a 5 [place] safety centesis catheter was advanced into the left lower q uadrant pocket of ascites. Ultrasound images were obtained. 1 L of ascites fluid was removed and sent to the lab. The catheter was removed and Band-Aid applied. The patient tolerated the procedure well. Vital signs will be monitored postprocedure. IMPRESSION: Ultrasound-guided paracentesis as above. Performed, dictated, and signed by Christos Lenz PA-C; to be co-signed by Dr. Brian Alexandre. Electronically signed by: Brian Alexandre M.D. 03/08/2023 6:43 PM
[2023-03-08 16:02] LABS: Albumin Peritoneal Fluid 2.8 gm/dl
[2023-03-08 16:08] LABS: Total Protein Peritoneal Fluid 5.4 gm/dl
--- NOTE | 2023-03-08 16:19 | XCELERA ---
[id number]
[2023-03-08] MEDS ORDERED: cefTRIAXone SODIUM 1,000 MG in DEXTROSE 5 % MINI-B 50 ML IV SCH (17:00)
[2023-03-08] MEDS ORDERED: cefTRIAXone SODIUM 2,000 MG in DEXTROSE 5 % MINI-B 50 ML IV SCH (17:00)
[2023-03-08 17:50] LABS: Appearance Peritoneal Fluid Hazy; Color Peritoneal Fluid Yellow; Lymphocytes, Fluid 8 %; Mono,Macrophage,Mesothelial 91 %; Neutrophils, Fluid 1 %; RBC Peritoneal Fluid Auto 6000 /uL; WBC Peritoneal Fluid Auto 2060 /ul (0-300)
--- NOTE | 2023-03-08 18:28 | Billing Data ---
Date of Service March 08, 2023 Coding Level of Care Code 72867 SUB INP/OBS CARE MIN
--- NOTE | 2023-03-08 18:28 | Billing Data ---
Date of Service March 08, 2023 Coding Level of Care Code 04535 SUB INP/OBS CARE MIN
[2023-03-08] MEDS: DONEPEZIL HCL 5 MG TAB PO SCH (20:45)
[2023-03-09 04:41] LABS: Base Excess ABG 3.3 mEq/L (-9-1.8); HCO3 ABG 28 mmol/L (19-24); PCO2 ABG 41 mmHg (35-46); PO2 ABG 67 mmHg (80-95); pH ABG 7.44 (7.35-7.45)
[2023-03-09 04:51] LABS: Basophils # (auto) 0.05 K/uL (0.00-0.20); Basophils % (auto) 0.5 %; Eosinophils # (auto) 0.13 K/uL (0.00-0.50); Eosinophils % (auto) 1.3 %; Hematocrit (blood only) 35.4 % (37.0-47.0); Hemoglobin 11.3 g/dl (12.0-16.0); Immature Granulocytes # (auto) 0.07 K/uL (0.01-0.20); Immature Granulocytes % (auto) 0.7 %; Lymphocytes # (auto) 1.12 K/uL (1.20-3.40); Lymphocytes % (auto) 11.5 %; Mean Corpuscular Hgb Conc 31.9 g/dL (32.0-36.0); Mean Platelet Volume 10.8 fL (9.4-12.4); Monocytes # (auto) 0.69 K/uL (0.11-0.59); Monocytes % (auto) 7.1 %; Neutrophils % (auto) 78.9 %; Platelet Count 266 K/uL (130-400); RDW Coefficient of Variation 13.9 % (11.5-14.5); RDW Standard Deviation 46.1 fL (36.4-46.3); Red Blood Count 3.89 M/uL (4.20-5.40); White Blood Count 9.76 K/ul (4.8-10.8)
[2023-03-09 05:11] LABS: Albumin Globulin Ratio 0.9 (0.9-2); Albumin Level 3.1 gm/dl (3.4-5.0); BUN Creatinine Ratio 13.4 (10-20); Bilirubin,Total 0.4 mg/dl (0.2-1.0); Calcium 9.4 mg/dl (8.6-10.3); Creatinine Clr Calc Pharmacy 33.4 ml/min; Est GFR (African American) 39.2 ml/min; Est GFR (Non-African American) 33.8 ml/min; Globulin 3.5 gm/dl (2.5-4.0); Potassium 3.5 mmol/L (3.5-5.1); Total Protein 6.6 gm/dl (6.0-8.3)
[2023-03-09 05:18] LABS: INR 1.1 (0.9-1.1); Prothrombin Time 11.5 Seconds (9.0-12.0)
[2023-03-09 05:22] LABS: Allen Test Pos (Pos)
[2023-03-09] MEDS: LEVOTHYROXINE SODIUM 88 MCG TABLET PO SCH (06:35)
--- NOTE | 2023-03-09 07:22 | Hospitalist Progress Note ---
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, previous atrial flutter status post ablation in 2015, COPD, pulmonary hypertension, venous insufficiency, hypertension, hypothyroidism, hyperlipidemia, and DM 2 who presents to the hospital for evaluation of right lower extremity edema and ascites Ascites: -Noted on admission -CT of the abdomen pelvis demonstrating normal liver as well as normal lab work making hepatic cause less likely -unknown etiology, undiagnosed heart failure vs new lung cancer -Paracentesis done today, 1 L --->patient felt much better after -Will repeat therapeutic paracentesis tomorrow, albumin after -Peritoneal SAAG: <1.1, >WBC 2060, neutrophils 1% --> -Echocardiogram: Severe pulmonary HTN, EF 60-65%, septal flattering during diastole suggest RV volume overload, Mildly dilated right ventricle with normal systolic fucntion Severe Pulmonary HTN RV volume overload, rg Overnight Oxygen report: mean O2: 90 Pulmonary nodules: - Incidental finding on CT of the abdomen and pelvis -CT of the chest: Right lower lobe pneumonitis versus atelectasis, differential diagnosis includes carcinomatosis. Question 5 mm nodule with second nodule measuring 13 mm versus round atelectasis. Moderate to large ascites with mild right-sided pleural effusion. -May represent new lung cancer especially in the setting of ascites, see above Cellulitis of right lower extremity: - Likely secondary to chronic vascular insufficiency with recent exacerbation -Started on Rocephin every 24 hours if continued improvement, can switch to Keflex or cefdinir for outpatient treatment -Blood cultures pending Leg edema: - Multifactorial in the setting of vascular insufficiency and what appears to be new heart failure -Ultrasound: negative for DVT -Compression stockings History of DVT (deep vein thrombosis): - Remote history of 2 provoked DVT in the past per patient history and has been on warfarin for the past 15 years -Given likely paracentesis, given 2.5 mg of IV phytonadione for reversal, INR in morning may repeat dose if necessary -May resume warfarin after paracentesis COPD, moderate: - Continue albuterol as needed for shortness of breath/wheezing DM type 2 (diabetes mellitus, type 2): - Diet controlled with no oral medications -Withhold sliding scale with insulin for now, last A1c was 6.4 Hypothyroidism: -Continue levothyroxine Hypercholesterolemia: - Noted, no statin being taken History of lung cancer: dx in 12/2012, s/p R thoracotomy and lower lobectomy in 04/2013. She is following w/ Dr. Dent, H/O--advised no need for adjuvant radiation/chemo. - PET scan completed in November of 2014 - no metastatic disease - CT scan chest November 2017 stable findings with no signs of metastatic or malignant disease - from [facility]- every 6 months- stable findings Hypertension: - On Lasix every other day at home but does appear somewhat intravascularly depleted on exam, hold for now Bipolar disorder: - Continue lithium daily Plan Disposition: Admit to [facility] with telemetry for further work-up in regard to ascites and treatment for cellulitis, GI consulted for paracentesis, reversing warfarin with vitamin K derivative DVT prophylaxis: Contraindicated given upcoming paracentesis Diet: Low-sodium CODE STATUS: DNR/DNI Admission and Anticipated Discharge Date Admission Date: March 07, 2023 Jian Simmons is an 83-year-old female with a past medical history of previous non-small cell lung cancer status post lobectomy, 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 During evaluation patient found with ascites. She refers swelling of legs are chronic, but she started noticed a red rash on her right lower extremities that was hot to touch as well worsening edema. No hx of congestive heart failure, but she refers some SOB, dyspnea on exertion. She have hx of nonsmall cell lung cancer s/p lobectomy, no chemotherapy needed at the time. She smoked for 15 years but quit 13 years ago. For 15 years she smoked a pack a day. During evaluation on admission, ascites was noted. PT refers this has been going for a a couple of weeks. She also refers nausea, vomiting and acid reflux. PCP started her on PPI which not improved symptoms. She denied any liver problems, any alcohol use, no tylenol use. Family hx of colon cancer and lung cancer in primary relatives She denied any weight loss, any fever, chills, cough, diarrhea, chest pain, palpitations or any other complains Review of Systems Review of Systems: as per HPI Physical Exam Constitutional: WD/WN, vitals as above + obese; no acute distress Respiratory: Auscultation: + diminished lung sounds Cardiovascular: Rate/Rhythm: regular rate and regular rhythm Heart Sounds: + murmur Extremities: + edema (non pitting) Skin: + dry skin Erythematous RLE, demarcated, improving Results & Data Results & Data Vital Signs (Past 12 Hours) Vital Signs Temp Pulse Pulse Pulse Pulse Resp BP 03/09/23 05:29 95 H 03/09/23 03:15 36.7 C 84 18 131/68 03/09/23 03:01 86 03/09/23 00:34 76 03/09/23 00:15 03/08/23 23:56 36.6 C 78 18 117/77 03/08/23 23:12 81 03/08/23 23:00 78 03/08/23 20:05 36.5 C 104 H 16 BP Pulse Ox Pulse Ox O2 Del Method O2 Del Method 03/09/23 05:29 89 L Room Air 03/09/23 03:15 92 Room Air 03/09/23 03:01 90 Room Air 03/09/23 00:34 92 Room Air 03/09/23 00:15 Room Air 03/08/23 23:56 95 Room Air 03/08/23 23:12 96 Room Air 03/08/23 23:00 03/08/23 20:05 123/59 L 94 Room Air (1) Ascites Ascites type: other type Qualified Code(s): R18.8 - Other ascites (11) Hypertension Hypertension type: primary hypertension Qualified Code(s): I10 - Essential (primary) hypertension
[2023-03-09 07:53] VITALS: RESP 16
[2023-03-09] MEDS: PANTOprazole 40 MG TAB PO SCH (08:14)
[2023-03-09] MEDS: LITHIUM CARBONATE SLOW REL 300 MG TAB PO SCH (08:14)
[2023-03-09] MEDS ORDERED: ALBUMIN 25% 25 GM/100 ML VIAL IV ONE ×2 (12:00→14:00)
--- NOTE | 2023-03-09 13:36 | Ultrasound Report ---
ULTRASOUND-GUIDED PARACENTESIS CLINICAL HISTORY: Ascites PROCEDURE: Procedure and risks were explained. Informed consent was obtained. A final timeout was com pleted. The abdomen was prepped and draped in sterile fashion. 1% buffered lidocaine was utilized for skin anesthesia. Utilizing ultrasound guidance, a 5 [place] safety centesis catheter was advanced into the right lower quadrant pocket of ascites. Ultrasound images were obtained. A total of 4 L of ascites fluid was nuzhat merary, with 1 L sent to lab for analysis. The catheter was removed and Band-Aid applied. The patient to lerated the procedure well. Vital signs will be monitored prior to discharge. IMPRESSION: Ultrasound-guided paracentesis as above. Performed, dictated, and signed by Christos Lenz PA-C; to be co-signed by Dr. Dada Valiente. Electronically signed by: Dada Valiente M.D. 03/09/2023 1:40 PM
[2023-03-09 14:00] VITALS: O2SAT 96
--- NOTE | 2023-03-09 15:43 | Discharge Summary ---
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 During physical exam it is also noted that the patient has ascites which was brought up after this discovery. In terms of the right lower extremity edema, it seems to be a chronic issue, however, over the past few days she has had bright red rash that is hot to the touch develop as well as worsening of the lower extremity edema. She denies a history of congestive heart failure. She reports she is having some dyspnea with exertion such as walking from room to room in her home. Typically does not feel dyspnea at rest but does occur sometimes. She does have a smoking history. She smoked for 15 years but quit 13 years ago. For 15 years she smoked a pack a day. Patient did have nonsmall cell lung cancer that did not require chemotherapy and was treated with lobectomy per the patient's history quite a few years ago. In terms of abdominal fullness, patient reports that she has noticed this for the past couple of weeks. She has also been having nausea, some vomiting, and acid reflux. She had seen her primary care provider about this and she was started on a PPI which she feels had minimal to no improvement in her symptoms. She is able to keep some amounts of food down and is hungry at the time of my interview. Reports no history of liver issues. Patient does not drink alcohol. No frequent Tylenol use. After the lung cancer that she had, reports no history of cancers after. There is a family history of colon cancer and lung cancer in primary relatives (her parents). Additionally it was noted that the patient did consume a large amount of water a few days ago because she has been feeling dehydrated and she continues to feel this way currently. Otherwise no other complaints ED course: Patient evaluated by provider at bedside. Labs are significant for white blood cell count of 16.03 with a neutrophilic predominance, INR of 3.6, APTT of 47.4, creatinine of 1.27 with a baseline of 1.30, glucose of 157, procalcitonin of 1.6, negative bio fire. Liver enzymes are within normal limits. Ultrasound of the right lower extremity is negative for DVT. CT of the abdomen and pelvis is significant for large ascites which is new, diverticulosis without diverticulitis, trace pleural effusion in the right lung with multiple pulmonary nodules seen which is new from a CT done in 2019. Chest x-ray is significant for faint bibasilar air space opacities which may represent atelectasis, pneumonia, and/or aspiration and mild pulmonary vascular congestion noted. Cardiomegaly is also noted. Patient was started on Rocephin due to concern for cellulitis. Blood cultures were taken prior to administration and are pending. MRSA nares also done. The hospitalist service was then consulted for admission for further work-up and treatment for both cellulitis and new onset ascites. Principal Diagnosis Ascites Cellulitis Discharge Data Allergies Allergy/AdvReac Type Severity Reaction Status Date / Time Penicillins Allergy Severe THROAT Verified 03/07/23 17:24 SWELLING Sulfa (Sulfonamide Allergy Severe "PAINS IN Verified 03/07/23 17:24 Antibiotics) MY HEART" benzalkonium AdvReac Unknown Verified 03/07/23 17:24 Cephalosporins AdvReac Unknown Verified 03/07/23 17:24 oxycodone AdvReac Unresponsiv Verified 03/07/23 17:24 e sulfacetamide AdvReac Unknown Verified 03/07/23 17:24 Consultations 03/07/23 16:49 ED Decision to Admit Stat Ordered Studies Venous Doppler Study 03/07/23 11:46 RIGHT LOWER EXTREMITY VENOUS DOPPLER HISTORY: Right leg Increased swelling/redness COMPARISON STUDY: None. FINDINGS: There is normal compressibility, flow, and augmentation within the right lower extremity deep venous system. IMPRESSION: No DVT within the right lower extremity ACT 112: Negative or not required by law. Electronically signed by: Dada Valiente M.D. 03/07/2023 3:03 PM Abdomen/Pelvis CT 03/07/23 14:20 CT abd pelvis IV con only CLINICAL HISTORY: ab distension, vomiting TECHNIQUE: Helical axial images of the abdomen and pelvis were obtained and displayed. Automated dose lowering techniques and/or adjustment according to patient size were utilized for this exam. This exam was performed with intravenous contrast. CT DOSE: 1300.29 mGy.cm COMPARISON: Comparison is made to CT abdomen pelvis 12/11/2021 FINDINGS: Lower chest: Trace pleural effusion is seen in the right lung. Multiple bilateral right nodules are seen measuring up to 5 mm in the right lower lobe. Liver: Unremarkable. No focal lesions are seen. Gallbladder and biliary tree: Patient is status post cholecystectomy. Intra or extrahepatic biliary ductal dilation is seen. Pancreas: Unremarkable, no focal lesions. Spleen: Splenule is incidentally noted. Adrenals: Unremarkable. Kidneys and ureters: Unremarkable. Bladder: Unremarkable. Reproductive organs: Patient is status post hysterectomy. Bowel: Diverticulosis is seen without evidence of diverticulitis. There is a moderate hiatal hernia. Lymph nodes Retroperitoneal: Unremarkable. Pelvic: Unremarkable. Mesenteric: Unremarkable. Peritoneum: Large ascites is seen. Vessels: Atherosclerotic calcifications are seen. Infrarenal aortic aneurysm measures 32 mm in diameter. Abdominal wall: Unremarkable. Bones: Degenerative changes in the visualized spine. Previously noted inferior endplate compression deformity of L1 is unchanged. IMPRESSION: 1. Large volume ascites is seen, new from prior exam. 2. Diverticulosis without diverticulitis. 3. Trace pleural effusion in the right lung. Multiple pulmonary nodules are seen. Although no recent studies available for comparison, this is new from the chest CT of the 05/07/2018 as well as the prior abdominal CT. If no recent imaging is available, nonemergent diagnostic CT chest can be performed. ACT 112: Negative or not required by law. Electronically signed by: Brian Alexandre M.D. 03/07/2023 3:41 PM Chest X-Ray 03/07/23 14:20 XR chest 1V portable CLINICAL HISTORY: cough, SOB TECHNIQUE: Single frontal radiograph of the chest was obtained. Comparison: Comparison is made to chest radiograph 12/11/2021 FINDINGS: Exam is limited by underpenetration. Cardiomegaly is noted. Faint bibasilar airspace opacities are seen. Prominence of the pulmonary vasculature is seen. No evidence of pleural effusion or pneumothorax. IMPRESSION: 1. Faint bibasilar airspace opacities which may represent atelectasis, pneumon ia, and/or aspiration. 2. Mild pulmonary vascular congestion. ACT 112: Negative or not required by law. Electronically signed by: Brian Alexandre M.D. 03/07/2023 3:[address] 03/07/23 19:53 Exam(s): CT CHEST Without Contrast EXAM: CT Chest Without Intravenous Contrast CLINICAL HISTORY: Reason for exam: Diagnostic, pulmonary nodules, previous lung cance. TECHNIQUE: Axial computed tomography images of the chest without intravenous contrast. CTDI is 27.07 mGy and DLP is 820.52 mGy-cm. Automated exposure control was utilized for the study. A dose lowering technique was utilized adhering to the principles of ALARA. COMPARISON: 07/08/2018. FINDINGS: Lungs: Right lower lobe consolidation with interstitial thickening and mild groundglass opacity suggestive of pneumonia versus atelectasis. There are emphysematous changes in the bilateral upper lobe/lung apices. There is a small right lower lobe nodule, image 34, series 3 measuring 5 mm. There is a second adjacent subpleural nodularity versus round atelectasis measuring 13 mm, image 35, series 3. Remainder of the lung parenchyma is clear. Pleural space: There is mild right-sided pleural effusion. No pneumothorax. Heart: Unremarkable. No cardiomegaly. No significant pericardial effusion. Normal cardiac size with coronary artery calcifications. Bones/joints: See below. Soft tissues: Unremarkable. Vasculature: Atherosclerotic disease of aorta with no aneurysm. Lymph nodes: Unremarkable. No enlarged lymph nodes. Intraperitoneal space: There is moderate to large ascites in the upper abdomen, etiology indeterminate. There is degenerative disease of the spine with osteopenia. IMPRESSION: 1. Right lower lobe pneumonitis versus atelectasis. In the context of known neoplasm, and given interstitial prominence with some reticular pattern and nodularities, differential diagnosis includes carcinomatosis. 2. Question 5 mm nodule with second nodule measuring 13 mm versus round atelectasis. Recommend follow-up CT in 3-6 months to evaluate resolution, depending on clinical presentation, and prior history. 3. Moderate to large ascites with mild right-sided pleural effusion. Electronically signed by: Judy Zaman MD 03/08/23 00:27 AM Paracentesis Ultrasound 03/08/23 08:43 Ultrasound-guided paracentesis INDICATION: Ascites PROCEDURE: Procedure and risks explained. Informed consent was obtained. A final timeout was completed. The abdomen was prepped and draped in sterile fashion. 1% buffered lidocaine was utilized for skin anesthesia. Utilizing ultrasound guidance, a 5 [place] safety centesis catheter was advanced into the left lower quadrant pocket of ascites. Ultrasound images were obtained. 1 L of ascites fluid was removed and sent to the lab. The catheter was removed and Band-Aid applied. The patient tolerated the procedure well. Vital signs will be monitored postprocedure. IMPRESSION: Ultrasound-guided paracentesis as above. Performed, dictated, and signed by Christos Lenz PA-C; to be co-signed by Dr. Brian Alexandre. Electronically signed by: Brian Alexandre M.D. 03/08/2023 6:43 PM Paracentesis Ultrasound 03/09/23 00:00 ULTRASOUND-GUIDED PARACENTESIS CLINICAL HISTORY: Ascites PROCEDURE: Procedure and risks were explained. Informed consent was obtained. A final timeout was completed. The abdomen was prepped and draped in sterile fashion. 1% buffered lidocaine was utilized for skin anesthesia. Utilizing ultrasound guidance, a 5 [place] safety centesis catheter was advanced into the right lower quadrant pocket of ascites. Ultrasound images were obtained. A total of 4 L of ascites fluid was removed, with 1 L sent to lab for analysis. The catheter was removed and Band-Aid applied. The patient tolerated the procedure well. Vital signs will be monitored prior to discharge. IMPRESSION: Ultrasound-guided paracentesis as above. Performed, dictated, and signed by Christos Lenz PA-C; to be co-signed by Dr. Dada Valiente. Electronically signed by: Dada Valiente M.D. 03/09/2023 1:40 PM Microbiology 03/08/23 02:30 Urine,Clean Catch Urine Culture - Preliminary Pin-point growth present, reincubating. 03/08/23 Unknown Peritoneal Fluid Gram Stain - Final 03/08/23 Unknown Peritoneal Fluid Aerobic and Anaerobic Culture - Preliminary No growth to date. 03/07/23 19:33 Blood Aerobic Blood Culture - Preliminary No growth in Aerobic bottle after 24 hours. 03/07/23 19:33 Blood Anaerobic Blood Culture - Final 03/07/23 14:31 Blood Aerobic Blood Culture - Preliminary No growth in Aerobic bottle after 24 hours. 03/07/23 14:31 Blood Anaerobic Blood Culture - Final Labs 03/07/23 03/07/23 03/07/23 12:51 14:31 Unknown WBC 16.03 H RBC 4.18 L Hgb 12.3 Hct 38.0 MCV 90.9 MCH 29.4 MCHC 32.4 RDW Std Deviation 45.8 RDW Coeff of Kim 13.8 Plt Count 289 MPV 11.2 Immature Gran % (Auto) 0.4 Neut % (Auto) 88.4 Lymph % (Auto) 7.5 Geary % (Auto) 3.3 Eos % (Auto) 0.1 Baso % (Auto) 0.3 Neut # (Auto) 14.17 H Lymph # (Auto) 1.20 Geary # (Auto) 0.53 Eos # (Auto) 0.02 Baso # (Auto) 0.05 Immature Gran # (Auto) 0.06 PT Cancelled 36.3 H INR Cancelled 3.6 H APTT Cancelled 47.4 H* PTT Ratio Cancelled 1.7 ABG pH ABG pCO2 ABG pO2 ABG HCO3 ABG O2 Saturation ABG Base Excess Ugo Test Oxygen Given Sodium 136 Potassium 4.0 Chloride 100 Carbon Dioxide 26 Anion Gap 10 BUN 15 Creatinine 1.27 H Est Cr Clr Drug Dosing Not Reportable Est GFR ( Amer) 44.9 Est GFR (Non-Af Amer) 38.7 BUN/Creatinine Ratio 11.8 Glucose 157 H Calcium 10.0 Total Bilirubin 0.9 AST 19 ALT 8 Alkaline Phosphatase 87 Troponin I High Sens 9.6 Total Protein 7.3 Albumin 3.4 Globulin 3.9 Albumin/Globulin Ratio 0.9 Procalcitonin 1.58 H Urine Color Urine Appearance Urine pH Ur Specific [place] Urine Protein Urine Glucose (UA) Urine Ketones Urine Blood Urine Nitrite Urine Bilirubin Urine Urobilinogen Ur Leukocyte Esterase Urine WBC (Auto) Urine RBC (Auto) U Hyaline Cast (Auto) U Epithel Cells (Auto) Urine Bacteria (Auto) Ur Random Creatinine U Random Total Protein Protein/Creatinin Ratio Fluid Neutrophils % Fluid Lymphocytes % Fluid Meso/Macro/Geary % Fluid Slide Review Fluid Comment Peritoneal Color Peritoneal Appearance Peritoneal WBC (Auto) Peritoneal RBC (Auto) Peritoneal Tot Protein Peritoneal Albumin Peritoneal LDH Peritoneal Glucose Peritoneal Amylase Peritoneal Lipase Nasal Screen MRSA (PCR) Adenovirus (PCR) Not Detected B. pertussis DNA (PCR) Not Detected B.parapertussis DNA PCR Not Detected C. pneumoniae DNA (PCR) Not Detected Coronavirus OC43 (PCR) Not Detected Coronavirus HKU1 (PCR) Not Detected Coronavirus 229E (PCR) Not Detected SARS-CoV-2 (PCR) Not Detected Coronavirus NL63 (PCR) Not Detected Human Metapneumovir PCR Not Detected Influenza Type A (PCR) Not Detected Influenza Type B (PCR) Not Detected M. pneumoniae (PCR) Not Detected Parainfluenza 1 (PCR) Not Detected Parainfluenza 2 (PCR) Not Detected Parainfluenza 3 (PCR) Not Detected Parainfluenza 4 (PCR) Not Detected RSV (PCR) Not Detected Entero/Rhino (PCR) Not Detected 03/08/23 03/08/23 03/08/23 02:30 05:23 Unknown WBC 12.62 H RBC 4.03 L Hgb 11.9 L Hct 36.5 L MCV 90.6 MCH 29.5 MCHC 32.6 RDW Std Deviation 45.1 RDW Coeff of Kim 13.7 Plt Count 269 MPV 11.1 Immature Gran % (Auto) Neut % (Auto) Lymph % (Auto) Geary % (Auto) Eos % (Auto) Baso % (Auto) Neut # (Auto) Lymph # (Auto) Geary # (Auto) Eos # (Auto) Baso # (Auto) Immature Gran # (Auto) PT 16.6 H INR 1.6 H APTT 35.9 H PTT Ratio 1.3 ABG pH ABG pCO2 ABG pO2 ABG HCO3 ABG O2 Saturation ABG Base Excess Ugo Test Oxygen Given Sodium 140 Potassium 3.9 Chloride 105 Carbon Dioxide 27 Anion Gap 8 BUN 17 Creatinine 1.33 H Est Cr Clr Drug Dosing 35.7 Est GFR ( Amer) 42.4 Est GFR (Non-Af Amer) 36.6 BUN/Creatinine Ratio 12.8 Glucose 137 H Calcium 9.9 Total Bilirubin 1.0 AST 12 L ALT 7 Alkaline Phosphatase 86 Troponin I High Sens Total Protein 7.1 Albumin 3.3 L Globulin 3.8 Albumin/Globulin Ratio 0.9 Procalcitonin Urine Color Yellow Urine Appearance Cloudy A Urine pH 6.5 Ur Specific [place] 1.010 Urine Protein Negative Urine Glucose (UA) Negative Urine Ketones Negative Urine Blood Trace H Urine Nitrite Negative Urine Bilirubin Negative Urine Urobilinogen Negative Ur Leukocyte Esterase 3+ H Urine WBC (Auto) >30 H Urine RBC (Auto) 10-30 H U Hyaline Cast (Auto) 0 U Epithel Cells (Auto) 10-20 H Urine Bacteria (Auto) 4+ H Ur Random Creatinine 25.6 U Random Total Protein 19.5 H Protein/Creatinin Ratio 0.8 H Fluid Neutrophils % 1 Fluid Lymphocytes % 8 Fluid Meso/Macro/Geary % 91 Fluid Slide Review Fluid Comment Peritoneal Color Yellow Peritoneal Appearance Hazy Peritoneal WBC (Auto) 2060 H Peritoneal RBC (Auto) 6000 Peritoneal Tot Protein 5.4 Peritoneal Albumin 2.8 Peritoneal LDH 202 Peritoneal Glucose 106 Peritoneal Amylase 13 Peritoneal Lipase 5 Nasal Screen MRSA (PCR) Negative Adenovirus (PCR) B. pertussis DNA (PCR) B.parapertussis DNA PCR C. pneumoniae DNA (PCR) Coronavirus OC43 (PCR) Coronavirus HKU1 (PCR) Coronavirus 229E (PCR) SARS-CoV-2 (PCR) Coronavirus NL63 (PCR) Human Metapneumovir PCR Influenza Type A (PCR) Influenza Type B (PCR) M. pneumoniae (PCR) Parainfluenza 1 (PCR) Parainfluenza 2 (PCR) Parainfluenza 3 (PCR) Parainfluenza 4 (PCR) RSV (PCR) Entero/Rhino (PCR) 03/09/23 03/09/23 04:20 04:31 WBC 9.76 RBC 3.89 L Hgb 11.3 L Hct 35.4 L MCV 91.0 MCH 29.0 MCHC 31.9 L RDW Std Deviation 46.1 RDW Coeff of Kim 13.9 Plt Count 266 MPV 10.8 Immature Gran % (Auto) 0.7 Neut % (Auto) 78.9 Lymph % (Auto) 11.5 Geary % (Auto) 7.1 Eos % (Auto) 1.3 Baso % (Auto) 0.5 Neut # (Auto) 7.70 H Lymph # (Auto) 1.12 L [place] # (Auto) 0.69 H Eos # (Auto) 0.13 Baso # (Auto) 0.05 Immature Gran # (Auto) 0.07 PT 11.5 INR 1.1 APTT PTT Ratio ABG pH 7.44 ABG pCO2 41 ABG pO2 67 L ABG HCO3 28 H ABG O2 Saturation 95.0 ABG Base Excess 3.3 H Ugo Test Pos Oxygen Given ROOM AIR Sodium 140 Potassium 3.5 Chloride 105 Carbon Dioxide 27 Anion Gap 8 BUN 19 Creatinine 1.42 H Est Cr Clr Drug Dosing 33.4 Est GFR ( Amer) 39.2 Est GFR (Non-Af Amer) 33.8 BUN/Creatinine Ratio 13.4 Glucose 143 H Calcium 9.4 Total Bilirubin 0.4 D AST 12 L ALT 6 L Alkaline Phosphatase 80 Troponin I High Sens Total Protein 6.6 Albumin 3.1 L Globulin 3.5 Albumin/Globulin Ratio 0.9 Procalcitonin Urine Color Urine Appearance Urine pH Ur Specific [place] Urine Protein Urine Glucose (UA) Urine Ketones Urine Blood Urine Nitrite Urine Bilirubin Urine Urobilinogen Ur Leukocyte Esterase Urine WBC (Auto) Urine RBC (Auto) U Hyaline Cast (Auto) U Epithel Cells (Auto) Urine Bacteria (Auto) Ur Random Creatinine U Random Total Protein Protein/Creatinin Ratio Fluid Neutrophils % Fluid Lymphocytes % Fluid Meso/Macro/Ge[place] % Fluid Slide Review Fluid Comment Peritoneal Color Peritoneal Appearance Peritoneal WBC (Auto) Peritoneal RBC (Auto) Peritoneal Tot Protein Peritoneal Albumin Peritoneal LDH Peritoneal Glucose Peritoneal Amylase Peritoneal Lipase Nasal Screen MRSA (PCR) Adenovirus (PCR) B. pertussis DNA (PCR) B.parapertussis DNA PCR C. pneumoniae DNA (PCR) Coronavirus OC43 (PCR) Coronavirus HKU1 (PCR) Coronavirus 229E (PCR) SARS-CoV-2 (PCR) Coronavirus NL63 (PCR) Human Metapneumovir PCR Influenza Type A (PCR) Influenza Type B (PCR) M. pneumoniae (PCR) Parainfluenza 1 (PCR) Parainfluenza 2 (PCR) Parainfluenza 3 (PCR) Parainfluenza 4 (PCR) RSV (PCR) Entero/Rhino (PCR) 03/07/23 11:46 US venous duplex leg [US venous doppler LE RT] Stat 03/07/23 14:20 CT abd pelvis IV con only Stat 03/07/23 19:53 CT chest diagnostic wo con Routine 03/08/23 08:43 IR paracentesis abd w/img US Routine 03/09/23 IR paracentesis abd w/img US Routine Hospital Course (1) Ascites: (2) Pulmonary nodules: (3) Cellulitis of right lower extremity: (4) Leg edema: (5) History of DVT (deep vein thrombosis): (6) COPD, moderate: (7) DM type 2 (diabetes mellitus, type 2): (8) Hypothyroidism: (9) Hypercholesterolemia: (10) History of lung cancer: (11) Hypertension: (12) Bipolar disorder: Francis Serenity Simmons is an 83-year-old female with a past medical history of previous non-small cell lung cancer status post lobectomy, 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, previous atrial flutter status post ablation in 2014, COPD, pulmonary hypertension, venous insufficiency, hypertension, hypothyroidism, hyperlipidemia, and DM 2 who presents to the hospital for evaluation of right lower extremity edema and ascites Ascites: Peritoneal Carcinomatosis -Noted on admission -CT of the abdomen pelvis demonstrating normal liver as well as normal lab work making hepatic cause less likely -unknown etiology, undiagnosed heart failure vs new lung cancer -therapeutic paracentesis done: 5L --> patient felt much better after -Peritoneal SAAG: <1.1, >WBC 2060, neutrophils 1% --> By pathologist-->concern of Peritoneal carcinomatosis, cancerous cells seen Patient to follow oncology outpatient as soon as next week. Official results from pathologist will be available Tuesday Severe Pulmonary HTN -Echocardiogram: Severe pulmonary HTN, EF 60-65%, septal flattering during diastole suggest RV volume overload, Mildly dilated right ventricle with normal systolic fucntion Overnight Oxygen report: mean O2: 90 -PAtient would benefit for outpatient evaluation and treatment for DAMIAN Pulmonary nodules: hx of lung cancer - dx in 12/2012, s/p R thoracotomy and lower lobectomy in 04/2013. She is following w/ Dr. Dent, H/O--advised no need for adjuvant radiation/chemo. - PET scan completed in November of 2014 - no metastatic disease - CT scan chest November 2017 stable findings with no signs of metastatic or malignant disease - from [facility]- every 6 months - Incidental finding on CT of the abdomen and pelvis -CT of the chest: Right lower lobe pneumonitis versus atelectasis, differential diagnosis includes carcinomatosis. Question 5 mm nodule with second nodule measuring 13 mm versus round atelectasis. Moderate to large ascites with mild right-sided pleural effusion. -May represent new lung cancer especially in the setting of ascites, see above Cellulitis of right lower extremity: - Likely secondary to chronic vascular insufficiency with recent exacerbation -Started on Rocephin every 24 hours if continued improvement -Blood cultures: negative -Patient will be discharge home with Keflex for a total of 7 days Leg edema: - Multifactorial in the setting of vascular insufficiency and what appears to be new heart failure -Ultrasound: negative for DVT -Compression stockings History of DVT (deep vein thrombosis): - Remote history of 2 provoked DVT in the past per patient history and has been on warfarin for the past 15 years -Given likely paracentesis, given 2.5 mg of IV phytonadione for reversal, INR in morning may repeat dose if necessary -May resume warfarin COPD, moderate: - Continue albuterol as needed for shortness of breath/wheezing DM type 2 (diabetes mellitus, type 2): - Diet controlled with no oral medications Hypothyroidism: -Continue levothyroxine Hypercholesterolemia: - Noted, no statin being taken Hypertension: - On Lasix every other day at home but does appear somewhat intravascularly depleted on exam, hold for now Bipolar disorder: - Continue lithium daily Plan Disposition: Admit to [facility] with telemetry for further work-up in regard to ascites and treatment for cellulitis, GI consulted for paracentesis, reversing warfarin with vitamin K derivative DVT prophylaxis: Contraindicated given upcoming paracentesis Diet: Low-sodium CODE STATUS: DNR/DNI Total Time Total Time Spent Total Time Spent (In Minutes): >30 Discharge Plan Discharge Items Patient Disposition: Home - Self-Care Reason For Visit: RLE EDEMA Discharge Diagnosis: Ascites Cellulitis Activity: Resume your previous activity Non-emergency contact: Primary Care Provider Call non-emergency contact if: you have any medication questions Follow-up/Referrals: Kristel Morfin MD [Primary Care Provider] - 03/18/23 10:30 am (APPT. WITH FRANCESCA HATFIELD PA-C) Diet: Heart Healthy Addtl Attending Provider Instructions: Ascites (abdominal fluid) - as we discussed, my biggest concern was that the fluid was there related to a cancer. After we talked, the pathologist got back to us that he is seeing cells are very concerning for cancer. He did note that it will take several days until the tests are finalized to really determine what it is, but unfortunately everything we were talking about holds true) - because of this (and because of what we were seeing that is concerning for cancer at the base of your lung on your chest CT) we will want to get you in with oncology KATIA (ideally as soon as next week (oncologists generally need finalized pathology to really build a plan, but given that that should be back by early next week, in a perfect world we would have you seeing an oncologist by the end of next week if at all possible). Given that you had seen Dr. Luis before, if he is still in practice it would be quite reasonable to follow-up with himas we discussed, I do not see him still listed on her she website, although it is possible I am just missing it. At the same time, as we discussed, the oncology team here in [place] is quite good, and as we discussed I have enough confidence in them that I am trusting the care of my own father with them. Either way, our nurse navigator can help set up an appointment if you let us know you need to help. - Given that cancer acts as a "fluid magnet" pulling the fluid in, it is quite likely that your belly will reaccumulate with fluid over time. For symptom and pressure relief, as we discussed, it is usually quite easy to get set up for repeat paracentesis (drainage) procedures when needed. Because everybody follows a bit of a different timeline on this, right now it is most prudent to follow how quickly versus slowly the fluid accumulates, and then start to build a plan from there. If it accumulates fairly quickly, and it is clear that you will need to have a drainage on a regular basis, the radiology department can then get you scheduled as a recurring patient. Hopefully, it will accumulate more slowly, and repeat drainage will simply be on an as-needed basis. Leg cellulitis (skin infection of the leg) - fortunately this is getting better very easily. The IV antibiotics that we had you on translate quite nicely to oral antibiotic coverage that works extremely similarly. We will finish out a course of oral antibiotics with Keflex (cephalexin) for 5 more days. - As we discussed, the infection is getting better, but the fluid brought on by the inflammatory response to the infection may take quite a while to clearand given that you have a degree of venous stasis, it is unfortunately possible that some of the discoloration of your leg may stay that way indefinitely. The best carpet installation specialist of progress on the infection is not so much how it looks, but how it feelsand given that the pain has improved dramatically, that is generally the best sign that the infection is getting better. High blood pressure in your lungs (pulmonary hypertension) - while we were initially looking at your heart to determine if it was part of the cause of the fluid in your belly (and it does not appear to be), we did incidentally see that the blood pressure in your lungs is quite high. Of the common things that can lead to high blood pressure in the lungs, you do not appear to have a large amount of emphysema that could increase pressure, you do not appear to have stiff/scarred type lungs that would increase pressure, the left side of your heart is goodand therefore is not causing a "traffic jam" raising the pressure in your lungs, which means that undiagnosed sleep apnea is the most likely culprit. - We are asking to get you set up for a sleep study (the overnight pulse ox we did hear in the hospital showed drops in oxygen numbers, and that confirms my suspicion we are likely to see sleep apnea; and a "good bad" way the carbon dioxide on your blood gas in the morning does not show that the situation is very severe or acutely/imminently dangerousthat is good because of course we do not want your breathing to be that impaired, it is bad and that insurance regulations will require us to get a true sleep study to diagnose a sleep apnea to start treating it. we restarted your coumadin - your INR may take several days to get back to therapeutic - but since it is far easier to prevent a clot than to treat a clot, being on any degree of coumadin at all will likely serve as a good preventative even before your numbers get back to therapeutic. if at all possible please check your INR again Tuesday. Pending Studies at Discharge: Yes Studies:: Paracentesis pathology Stand-Alone Forms: My [facility], Smoking Cessation Medications and DC Order Prescriptions: New cephalexin 500 mg capsule 500 mg PO BID Qty: 10 0RF Continued mecobalamin (vitamin B12) 1,000 mcg tablet,disintegrating 1,000 mcg sublingual DAILY Qty: 30 0RF Rx Instructions: place tablet under tongue and allow to dissolve for at least30 secs before swallowing lithium carbonate 300 mg tablet extended release 300 mg PO DAILY Qty: 30 1RF methenamine hippurate [Hiprex] 1 gram tablet 1 g PO QPM Qty: 30 1RF Rx Instructions: Take 1 tablet daily in the evening. albuterol sulfate 90 mcg/actuation HFA aerosol inhaler 1 inh inhalation QID PRN (Reason: shortness of breath or wheezing) Qty: 8.5 4RF levothyroxine [Synthroid] 88 mcg tablet 88 mcg PO DAILY Qty: 90 3RF betamethasone dipropionate 0.05 % cream 1 applic topical BID PRN (Reason: skin irritation) Qty: 15 3RF donepezil [Aricept] 5 mg tablet 5 mg PO HS Qty: 90 3RF pantoprazole 40 mg tablet,delayed release (DR/EC) 40 mg PO DAILY Qty: 30 1RF warfarin 3 mg tablet 3 mg PO DAILY Qty: 30 1RF Protocol: Dose Management Condition: Tuesday Dose/Route: 3 mg Instruction: 1 x 3 mg tablet Condition: Tuesday Dose/Route: 3 mg Instruction: 1 x 3 mg tablet Condition: Tuesday Dose/Route: 3 mg Instruction: 1 x 3 mg tablet Condition: Tuesday Dose/Route: 3 mg Instruction: 1 x 3 mg tablet Condition: Dose/Route: 4 mg Instruction: 1 x 4 mg tablet Condition: Tuesday Dose/Route: 4 mg Instruction: 1 x 4 mg tablet Condition: Tuesday Dose/Route: 4 mg Instruction: 1 x 4 mg tablet Protocol Text: Adjustment Start Date: 01/13/23 INR Value: 2.3 INR Date: 01/13/23 Recheck Date: 01/20/23 warfarin 4 mg tablet 4 mg PO DIRECTED Qty: 90 1RF Hold Instructions: high INR Protocol: Dose Management Condition: Tuesday Dose/Route: 3 mg Instruction: 1 x 3 mg tablet Condition: Tuesday Dose/Route: 3 mg Instruction: 1 x 3 mg tablet Condition: Tuesday Dose/Route: 3 mg Instruction: 1 x 3 mg tablet Condition: Tuesday Dose/Route: 3 mg Instruction: 1 x 3 mg tablet Condition: Dose/Route: 4 mg Instruction: 1 x 4 mg tablet Condition: Tuesday Dose/Route: 4 mg Instruction: 1 x 4 mg tablet Condition: Tuesday Dose/Route: 4 mg Instruction: 1 x 4 mg tablet Protocol Text: Adjustment Start Date: 01/13/23 INR Value: 2.3 INR Date: 01/13/23 Recheck Date: 01/20/23 furosemide 20 mg tablet 20 mg PO Q OTHER DAY Qty: 30 3RF Rx Instructions: , cholecalciferol (vitamin D3) 50 mcg (2,000 unit) capsule 2,000 unit PO QAM acetaminophen [Tylophen] 500 mg capsule 1,000 mg PO Q6H PRN (Reason: Pain) Discharge Orders: Discharge Order (Routine); Ordered 03/09/23 Ordered By: Rico Suero Admission Data Admit Date/Time: 03/07/23 19:09 Attending Provider: Rico Suero Admit Provider: Luis Daniels Primary Care Provider: Kristel Morfin V. Other Providers: Pako Blum Other Interventions: Discharge Summary Assessment (RN) Last Done: 03/09/23 16:12 Supervising Physician Co-Signing Physician Notes I personally examined the patient and verified all schofield points of history and exam, discussed case, and agree with decision making with Dr Misael Barbosa even more symptom relief since second paracentesis. no lightheadedness. extensive discussions with pt and today daughter. overall she expresses understanding of the situation and would like to go home. Vitals noted, in general she is awake and alert pleasant no distress. HEENT normocephalic atraumatic mucous membranes moist. Breathing unlabored no accessory muscle use good effort. Right lower extremity with erythema, ongoing improvement, more dull, maroon fading towards brown. New onset ascitesunfortunately almost certainly malignancy. repeat therapeutic paracentesis when/if reaccumulates. full cytology pending. outpt oncology f/u (pt/dtr noted they were deciding if they wanted to call or wanted us to help schedule - did impart that ideally she be seen as soon as next week) Pulmonary hypertensionas above noted, without clear or overt respiratory symptoms or signs of hepatic congestion, while she has severe enough pulmonary hypertension/right heart failure that passive congestion could lead to ascites, I am not certain that is the case right now. She does not appear to have any parenchymal lung disease that would drive this, and less the small area of carcinomatosis is only with showing up on CT and she has diffuse carcinomatosis that is notsee below otherwise. I am more suspicious of undiagnosed and untreated OSAOvernight pulse ox did show desaturations, but a.m. ABG did not show hypercapnia. Outpatient sleep study. If sleep study does not confirm strongly suspected obstructive sleep apnea as cause of pulmonary hypertension, then would need pulmonary evaluation as etiology would be unclear CT findings consistent with carcinomatosiswe will get her reevaluated with oncology as an outpatient right lower extremity cellulitisimproving on ceftriaxone. 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 safe/stable for home
[2023-03-09 15:59] VITALS: TEMP 98.4
[2023-03-09 16:14] VITALS: BP 123/59
[2023-03-09 16:15] VITALS: PULSE 83
--- NOTE | 2023-03-09 16:36 | Billing Data ---
Date of Service March 09, 2023 Coding Level of Care Code 27833 INP/OBS DISCH >30 MIN
== END 2023-03-09 17:16 | disposition home or self-care (01) | DRG 375 ==
LOC: EDINP 11:22 → ED 11:22 → SUATTDRO 18:58 → 2W 03-08 02:08
DX: Z79.01 Long term (current) use of anticoagulants; Z79.899 Other long term (current) drug therapy; Z88.1 Allergy status to other antibiotic agents; Z88.2 Allergy status to sulfonamides; R18.0 Malignant ascites; J44.9 Chronic obstructive pulmonary disease, unspecified; E78.00 Pure hypercholesterolemia, unspecified; G47.33 Obstructive sleep apnea (adult) (pediatric); Z88.8 Allergy status to other drugs, medicaments and biological substances; Z66 Do not resuscitate; I25.2 Old myocardial infarction; L03.115 Cellulitis of right lower limb; Z11.52 Encounter for screening for COVID-19; Z90.2 Acquired absence of lung [part of]; C78.6 Secondary malignant neoplasm of retroperitoneum and peritoneum; R91.8 Other nonspecific abnormal finding of lung field; I10 Essential (primary) hypertension; Z87.891 Personal history of nicotine dependence; E03.9 Hypothyroidism, unspecified; Z86.718 Personal history of other venous thrombosis and embolism; F31.9 Bipolar disorder, unspecified; I27.20 Pulmonary hypertension, unspecified; Z88.0 Allergy status to penicillin; Z88.5 Allergy status to narcotic agent; E11.9 Type 2 diabetes mellitus without complications; I87.2 Venous insufficiency (chronic) (peripheral); C34.91 Malignant neoplasm of unspecified part of right bronchus or lung; Z79.890 Hormone replacement therapy

== ENCOUNTER 2023-06-30 06:45 | Inpatient (IN) ==
--- NOTE | 2023-06-30 07:27 | Emergency Department Note ---
Impression & Plan Hypoxia, Pneumonia, Acute UTI (urinary tract infection), Sepsis, Anemia ED Provider Note ED Provider Note NAME: GLORIA WORLEY AGE:83 SEX: Female : 1940 ARRIVES VIA: EMS INFORMANT: Patient ED PROVIDER(s): Tracey Price DO CHIEF COMPLAINT: hypoxia HPI: This is an 83-year-old female who presents emergency ferment due to concern for pneumonia and UTI. She states she woke up in the middle of the night with a severe cough and has had pneumonia before. She states she also had pressure in her lower abdomen was concern for UTI. She denies any other overt urinary symptoms. She denies fevers or chills. Patient states she is currently receiving chemotherapy for cancer. She states her last treatment was Tuesday. Staff noted on arrival via EMS the patient was overtly hypoxic in the 70's and she was started on oxygen via nasal cannula with improvement. Patient denies any shortness of breath. She states she does not routinely wear oxygen at home. She states he is a former smoker. She denies any vomiting, chest pain, abdominal pain, or recent diarrhea. Patient requested we do not access her port. PAST MEDICAL HISTORY:See Below PAST SURGICAL HISTORY:See Below FAMILY HISTORY:See Below SOCIAL HISTORY:See Below HOME MEDICATIONS:See Below ALLERGIES:See Below VITALS:See Below PHYSICAL EXAMINATION: GENERAL: alert, well appearing, well nourished, no distress, non-toxic EYE EXAM: normal conjunctiva, PERRL and EOM's grossly intact OROPHARYNX: no exudate, no erythema, lips, buccal mucosa, and tongue normal and mucous membranes are moist NECK: supple, no nuchal rigidity, no adenopathy, non-tender LUNGS: Clear to auscultation. Normal chest wall mechanics, no w/r/r HEART: no murmurs, S1 normal and S2 normal, port noted left anterior superior chest wall ABDOMEN: abdomen soft, non-tender, normo-active bowel sounds, no masses, no rebound or guarding. BACK: Back is symmetrical on inspection and there is no deformity, no midline tenderness, no CVA tenderness. SKIN: no rashes, petechiae, orbruising UPPER EXTREMITIES: upper extremities are grossly normal. FROM, nml pulses b/l. LOWER EXTREMITIES: No pitting edema. FROM, nml pulses b/l. NEURO EXAM: Normal sensorium, cranial nerves II-XII grossly intact, normal speech, no facial droop,nogross weakness of arms, no gross weakness of legs. Gross sensation intact. No ataxia. Vital Signs: reviewed and remarkable Differential Diagnosis: pneumonia, bronchitis, COPD/Asthma exacerbation, pneumothorax, pulmonary embolism, congestive heart failure, acute coronary syndrome, as well as others were considered MEDICAL DECISION MAKING: This is an 83-year-old female who presents emergency department due to family concern for weakness and patient complaint for coughing. Patient stated she was concern for possible pneumonia and urinary tract infection. On arrival patient was noted to be tachycardic and hypoxic with increased respiratory effort and borderline blood pressures. No fever was noted. She was placed on oxygen via nasal cannula with immediate improvement. A sepsis workup was undertaken with labs drawn and sent including cultures, IV established, EKG and chest x-ray performed bedside interpreted me and patient monitored on telemetry. Patient declined to allow us to use her port stating at her last chemoinfusion she had some soreness afterwards and there was some delay in establishing a peripheral IV and obtaining all labs prior to starting IV antibiotics. She did receive IV cefepime. I did discuss antibiotic choice with the pharmacist given patient's listed allergies and risk including ongoing chemotherapy. Patient's chest x-ray with significant findings noted on the right lung suggestive of pneumonia and possible accompanying effusion. Due to her past history including lung cancer with prior right lower lobe lobectomy, she was sent for a noncontrast CT of the chest additionally to help further delineate this. Patient ultimately given 30 mL/KG of IV fluids based on ideal body weight. She was noted to have a leukocytosis of 16 however no significant elevation of her lactic acid or procalcitonin. Patient's urine also suggestive of infection. Bio fire negative. Patient had no further increased work of breathing or hypoxia and was maintained on oxygen via nasal cannula at 3 L/min. I do not suspect PE despite her increase risk with known metastatic disease as her INR is supratherapeutic. Case discussed with hospitalist team for additional evaluation and management. I did discuss all results and plan at bedside with the patient and her daughter. Consultation(s): 0828: Discussed antibiotic choice with edwin Valles, due to several listed allergies and concern for infection. I did find prior listings where patient had received cephalosporins. I confirmed with pharmacy to assure no documented reactions. 1012: [facility] ER Treatment Provided: See below 0950: Updated patient at bedside. Discussed with daughter now at bedside also. Daughter states she is seemed well yesterday and fine when she went to bed. Daughter checked on her at 1 AM and she appeared calm and resting, was not coughing or working to breathe. She states at 6:30 in the morning she went in to check on her and she was laying on the edge of the bed with her legs hanging over the side complaining that she had been coughing so much she thought she strained her hip. No falls or injury. Daughter states they did change her chemotherapy regimen this week. Diagnostics Interpreted By Me: -ECG: Normal sinus at 78, first-degree AV block, normal axis, normal intervals, no acute ST/T wave changes -Cardiac Monitoring: An order was placed for continuous cardiac monitoring. The monitor shows a rate of 86 with normal sinus rhythm. -Laboratory studies: As stated above and show below. -Imaging studies: Chest x-ray: Right-sided infiltrate and appearance of possible coming right pleural effusion Triage Nursing Note Reviewed Prior/Outside Records Reviewed Critical Care: Critical care of 39 min performed to assess and manage high likelihood of life- threatening sepsis, involving labs and imaging performed with assessment to evaluate sepsis diagnosis with frequent reassessment. This time includes bedside time, treatment discussions with patient/family/consultants, documentation time and excludes procedure time. Past Med/Surg History Medical History (Updated 06/30/23 @ 15:25 by Tracey Price DO) Anemia Leg edema Cellulitis of right lower extremity Abdominal pain Atrial flutter, paroxysmal Macular degeneration History of COVID-19 Fall 2019- hospitalized at [facility], SOB Sleep apnea Per records Leg swelling Hypotension Skin lesion ear skin lesion removed at dermatology Valvular heart disease Echo 02/2023: Moderate to severe TR Obesity Hypertension Hyperlipidemia Non-ST elevation myocardial infarction (NSTEMI) of indeterminate age Noted per remote records years ago History of pulmonary embolism Pulmonary hypertension Echo: Severe pulmonary HTN, estimated RVSP 95-100mmhg Recurrent UTI (urinary tract infection) No current issues Chronic kidney disease Stage III History of DVT (deep vein thrombosis) 40+ yrs ago after childbirth, 2nd time 2008 following bedrest Asthma C. difficile colitis hx, no current/recent issues Atrial flutter s/p cardioversion Non-small cell carcinoma of lung 2013, surgery [facility] [place], "no chemo required" Bipolar disorder Surgical History Port-A-Cath in place (05/13/23) Insertion of Access Port with Fluoroscopy, Left Subclavian(Left) - Emily Pollock DO Oncologist Dr. Spears History of total right knee replacement Right TKA (05/02/19): SAB at L3-4 + regional at [facility] S/P lobectomy of lung RLL @ [facility] [place] 2013, tumor excision History of left knee replacement 2018 [facility] History of partial hysterectomy History of phacoemulsification of cataract of both eyes with intraocular lens implantation H/O varicose vein stripping B/L LE extremities Hx of cholecystectomy History of cardioversion ~2009 Family History Sister Breast cancer Colorectal cancer Mother Colorectal cancer Diabetes Father Lung cancer Brother Prostate cancer Denies family history of Ovarian cancer Myocardial infarction Social History Smoking Status: Former smoker Tobacco Type: Cigarettes packs per day: 1; Cigarettes Per Day: 10; Second Hand Exposure: Yes (hx smoked); Do You Dip or Chew Tobacco: No; Hx Alcohol Use: No Hx Substance Use: No Preferred Language: Tunisian Communication Ability: Effective Visual Impairment: Limited Thermal Engineer Required: No Beliefs That Will Affect Care: None marital status: / Current Living Situation: Alone 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 How many Children do You have: 3 Other Information That Helps Us Care for You: No Feels Safe at Home: Yes Safety Concerns: Feels Safe At This Time Childhood Exposure to Second-Hand Smoke: Yes Diet: regular during the past year weight has: remained stable Dental Care, Regularly: Yes Physical Activity Frequency: Does not Exercise Seatbelt Use: always Sunscreen Use: No Assistive Devices: Denture - Upper, Denture - Lower and Walker Allergies Allergies Allergy/AdvReac Type Severity Reaction Status Date / Time Penicillins Allergy Severe Throat Verified 06/03/23 08:56 swelling Sulfa (Sulfonamide Allergy Severe "Pain in Verified 06/03/23 08:56 Antibiotics) my heart" latex Allergy Itching Verified 06/03/23 08:56 aspirin AdvReac Unknown Verified 06/03/23 08:56 benzalkonium AdvReac Unknown Verified 06/03/23 08:56 Cephalosporins AdvReac Unknown Verified 06/03/23 08:56 oxycodone AdvReac Unresponsiv Verified 06/03/23 08:56 e sulfacetamide AdvReac Unknown Verified 06/03/23 08:56 Home Meds Home Medications Medication Instructions Recorded Confirmed acetaminophen 500 mg capsule 1,000 mg PO Q6H PRN Pain 05/12/19 06/30/23 (Tylophen) cholecalciferol (vitamin D3) 50 2,000 unit PO HS 05/12/19 06/30/23 mcg (2,000 unit) capsule furosemide 20 mg tablet 0 mg PO UD 05/09/23 06/30/23 levothyroxine 88 mcg tablet 88 mcg PO HS 05/09/23 06/30/23 (Synthroid) lithium carbonate 300 mg 300 mg PO HS 05/09/23 06/30/23 tablet,extended release olanzapine 2.5 mg tablet 2.5 mg PO HS 06/30/23 06/30/23 prochlorperazine maleate 10 mg 10 mg PO Q6H PRN Nausea And 06/30/23 06/30/23 tablet Vomiting Previous Rx's Medication Instructions Recorded betamethasone dipropionate 0.05 % 1 applic topical BID PRN skin 01/28/21 topical cream irritation #15 grams albuterol sulfate 90 mcg/actuation 1 inh inhalation QID PRN shortness 08/17/22 aerosol inhaler of breath or wheezing #8.5 grams donepezil 5 mg tablet (Aricept) 5 mg PO HS #90 tabs 02/22/23 warfarin 4 mg tablet 4 mg PO DIRECTED #90 tabs 02/22/23 methenamine hippurate 1 gram 1 g PO QPM #30 tabs 06/03/23 tablet (Hiprex) warfarin 3 mg tablet 3 mg PO DAILY #30 tabs 06/07/23 warfarin 5 mg tablet 5 mg PO .COMPLEX #90 tabs 06/07/23 Results & Data (ED) Vital Signs Vital Signs - 24 hr 06/30/23 06:53 06/30/23 06:53 06/30/23 06:55 Temperature 36.4 C L 36.4 C L Temperature Source Oral Oral Pulse Rate 97 H 102 H Pulse Rate [Apical] 97 H Pulse Rate from SpO2 Sensor 102 H Pulse Rhythm Regular Pulse Rhythm [Apical] Regular Pulse Strength Normal Pulse Strength [Apical] Normal Respiratory Rate 18 18 21 Respiratory Effort / Characteristics Non-Labored Non-Labored Respiratory Depth Normal Normal Respiratory Pattern Regular Blood Pressure 99/61 L Blood Pressure [Left Arm] 99/61 L Blood Pressure Mean 73 Blood Pressure Mean [Left Arm] 73 Pulse Oximetry 74 L 74 L 77 L Oxygen Delivery Method Room Air Room Air Sepsis Recent Fever Within 48 Hours No Sepsis New/Unexplained Change in Mental Status No Sepsis Action Taken by Nursing No Action Required 06/30/23 06:58 06/30/23 07:00 06/30/23 07:00 Temperature Temperature Source Pulse Rate 103 H 90 Pulse Rate [Apical] Pulse Rate from SpO2 Sensor 90 Pulse Rhythm Pulse Rhythm [Apical] Pulse Strength Pulse Strength [Apical] Respiratory Rate 25 H Respiratory Effort / Characteristics Respiratory Depth Respiratory Pattern Blood Pressure 104/61 Blood Pressure [Left Arm] Blood Pressure Mean 76 Blood Pressure Mean [Left Arm] Pulse Oximetry 87 L Oxygen Delivery Method Sepsis Recent Fever Within 48 Hours Sepsis New/Unexplained Change in Mental Status Sepsis Action Taken by Nursing 06/30/23 07:30 06/30/23 08:00 06/30/23 08:11 Temperature Temperature Source Pulse Rate 83 77 Pulse Rate [Apical] Pulse Rate from SpO2 Sensor 83 Pulse Rhythm Pulse Rhythm [Apical] Pulse Strength Pulse Strength [Apical] Respiratory Rate 21 18 Respiratory Effort / Characteristics Respiratory Depth Respiratory Pattern Blood Pressure 106/63 Blood Pressure [Left Arm] Blood Pressure Mean 74 Blood Pressure Mean [Left Arm] Pulse Oximetry 95 Oxygen Delivery Method Sepsis Recent Fever Within 48 Hours Sepsis New/Unexplained Change in Mental Status Sepsis Action Taken by Nursing 06/30/23 08:11 06/30/23 08:30 06/30/23 09:00 Temperature Temperature Source Pulse Rate 84 82 Pulse Rate [Apical] Pulse Rate from SpO2 Sensor Pulse Rhythm Pulse Rhythm [Apical] Pulse Strength Pulse Strength [Apical] Respiratory Rate 18 18 Respiratory Effort / Characteristics Respiratory Depth Respiratory Pattern Blood Pressure 117/80 Blood Pressure [Left Arm] Blood Pressure Mean 92 Blood Pressure Mean [Left Arm] Pulse Oximetry Oxygen Delivery Method Sepsis Recent Fever Within 48 Hours Sepsis New/Unexplained Change in Mental Status Sepsis Action Taken by Nursing 06/30/23 09:00 06/30/23 09:30 06/30/23 09:30 Temperature Temperature Source Pulse Rate 79 80 Pulse Rate [Apical] Pulse Rate from SpO2 Sensor 78 81 Pulse Rhythm Pulse Rhythm [Apical] Pulse Strength Pulse Strength [Apical] Respiratory Rate 17 18 Respiratory Effort / Characteristics Respiratory Depth Respiratory Pattern Blood Pressure 85/50 L Blood Pressure [Left Arm] Blood Pressure Mean 54 Blood Pressure Mean [Left Arm] Pulse Oximetry 95 93 Oxygen Delivery Method Sepsis Recent Fever Within 48 Hours Sepsis New/Unexplained Change in Mental Status Sepsis Action Taken by Nursing 06/30/23 09:46 06/30/23 09:46 06/30/23 10:00 Temperature Temperature Source Pulse Rate 83 80 Pulse Rate [Apical] Pulse Rate from SpO2 Sensor 80 80 Pulse Rhythm Pulse Rhythm [Apical] Pulse Strength Pulse Strength [Apical] Respiratory Rate 18 23 Respiratory Effort / Characteristics Respiratory Depth Respiratory Pattern Blood Pressure 96/62 L Blood Pressure [Left Arm] Blood Pressure Mean 66 Blood Pressure Mean [Left Arm] Pulse Oximetry 94 97 Oxygen Delivery Method Sepsis Recent Fever Within 48 Hours Sepsis New/Unexplained Change in Mental Status Sepsis Action Taken by Nursing 06/30/23 10:00 06/30/23 10:30 06/30/23 10:30 Temperature Temperature Source Pulse Rate 72 Pulse Rate [Apical] Pulse Rate from SpO2 Sensor 73 Pulse Rhythm Pulse Rhythm [Apical] Pulse Strength Pulse Strength [Apical] Respiratory Rate 20 Respiratory Effort / Characteristics Respiratory Depth Respiratory Pattern Blood Pressure 103/57 L 101/60 Blood Pressure [Left Arm] Blood Pressure Mean 74 71 Blood Pressure Mean [Left Arm] Pulse Oximetry 100 Oxygen Delivery Method Sepsis Recent Fever Within 48 Hours Sepsis New/Unexplained Change in Mental Status Sepsis Action Taken by Nursing 06/30/23 11:00 06/30/23 11:00 Temperature Temperature Source Pulse Rate 73 Pulse Rate [Apical] Pulse Rate from SpO2 Sensor 73 Pulse Rhythm Pulse Rhythm [Apical] Pulse Strength Pulse Strength [Apical] Respiratory Rate 16 Respiratory Effort / Characteristics Respiratory Depth Respiratory Pattern Blood Pressure 104/65 Blood Pressure [Left Arm] Blood Pressure Mean 70 Blood Pressure Mean [Left Arm] Pulse Oximetry 98 Oxygen Delivery Method Sepsis Recent Fever Within 48 Hours Sepsis New/Unexplained Change in Mental Status Sepsis Action Taken by Nursing Laboratory Data 06/30/23 07:55 06/30/23 07:55 Lab Results 06/30/23 06/30/23 06/30/23 Range/Units 07:55 08:15 08:30 WBC 16.96 H (4.8-10.8) K/ul RBC 3.07 L (4.20-5.40) M/uL Hgb 8.7 L (12.0-16.0) g/dl Hct 27.4 L (37.0-47.0) % MCV 89.3 (80.0-100.0) fL MCH 28.3 (25.0-34.0) pg MCHC 31.8 L (32.0-36.0) g/dL RDW Std Deviation 56.9 H (36.4-46.3) fL RDW Coeff of Kim 18.6 H (11.5-14.5) % Plt Count 219 (130-400) K/uL MPV 11.0 (9.4-12.4) fL Immature Gran % (Auto) 0.6 % Neut % (Auto) 92.8 % Lymph % (Auto) 5.3 % Nance % (Auto) 1.2 % Eos % (Auto) 0.0 % Baso % (Auto) 0.1 % Neut # (Auto) 15.74 H (1.40-6.50) K/uL Lymph # (Auto) 0.90 L (1.20-3.40) K/uL Nance # (Auto) 0.20 (0.11-0.59) K/uL Eos # (Auto) 0.00 (0.00-0.50) K/uL Baso # (Auto) 0.01 (0.00-0.20) K/uL Immature Gran # (Auto) 0.11 (0.01-0.20) K/uL PT (9.0-12.0) Seconds INR (0.9-1.1) Sodium 134 L (136-145) mmol/L Potassium 4.8 (3.5-5.1) mmol/L Chloride 102 (98-107) mmol/L Carbon Dioxide 25 (21-32) mmol/L Anion Gap 7 (3-11) BUN 32 H (6-23) mg/dl Creatinine 1.33 H (0.6-1.2) mg/dl Est Cr Clr Drug Dosing 32.8 ml/min Est GFR ( Amer) 42.4 ml/min Est GFR (Non-Af Amer) 36.6 ml/min BUN/Creatinine Ratio 24.1 H (10-20) Glucose 166 H (70-99(Fasting)) mg/dl Lactate 1.3 (0.4-2.0) mmol/L Calcium 8.5 L (8.6-10.3) mg/dl Magnesium 1.8 (1.7-2.4) mg/dl Total Bilirubin 0.3 (0.2-1.0) mg/dl Direct Bilirubin 0.1 (0-0.2) mg/dl AST 20 (13-39) U/L ALT 20 (7-52) U/L Alkaline Phosphatase 113 H (34-104) U/L Troponin I High Sens 31.3 H (0-14) pg/ml Total Protein 6.8 (6.0-8.3) gm/dl Albumin 3.1 L (3.4-5.0) gm/dl Procalcitonin 0.24 (0-0.5) ng/ml Urine Color Yellow Urine Appearance Turbid A (Clear) Urine pH 6.0 (4.5-7.5) Ur Specific Vida 1.008 (1.000-1.030) Urine Protein 2+ H (Negative) Urine Glucose (UA) Negative (Negative) Urine Ketones Negative (Negative) Urine Blood 3+ H (Negative) Urine Nitrite Positive A (Negative) Urine Bilirubin Negative (Negative) Urine Urobilinogen Negative (Negative) Ur Leukocyte Esterase 3+ H (Negative) Urine WBC (Auto) >30 H (0-5) /hpf Urine RBC (Auto) 5-10 H (0-4) /hpf U Hyaline Cast (Auto) 1-5 (0-5) /lpf U Epithel Cells (Auto) >30 H (0-5) /lpf Urine Bacteria (Auto) 2+ H (Negative) Urine Mucus Present A (None Prsent) Adenovirus (PCR) (NotDetected) B. pertussis DNA (PCR) (NotDetected) B.parapertussis DNA PCR (NotDetected) C. pneumoniae DNA (PCR) (NotDetected) Coronavirus OC43 (PCR) (NotDetected) Coronavirus HKU1 (PCR) (NotDetected) Coronavirus 229E (PCR) (NotDetected) SARS-CoV-2 (PCR) (NotDetected) Coronavirus NL63 (PCR) (NotDetected) Human Metapneumovir PCR (NotDetected) Influenza Type A (PCR) (NotDetected) Influenza Type B (PCR) (NotDetected) M. pneumoniae (PCR) (NotDetected) Parainfluenza 1 (PCR) (NotDetected) Parainfluenza 2 (PCR) (NotDetected) Parainfluenza 3 (PCR) (NotDetected) Parainfluenza 4 (PCR) (NotDetected) RSV (PCR) (NotDetected) Entero/Rhino (PCR) (NotDetected) 06/30/23 06/30/23 06/30/23 Range/Units 08:36 09:00 10:07 WBC (4.8-10.8) K/ul RBC (4.20-5.40) M/uL Hgb (12.0-16.0) g/dl Hct (37.0-47.0) % MCV (80.0-100.0) fL MCH (25.0-34.0) pg MCHC (32.0-36.0) g/dL RDW Std Deviation (36.4-46.3) fL RDW Coeff of Kim (11.5-14.5) % Plt Count (130-400) K/uL MPV (9.4-12.4) fL Immature Gran % (Auto) % Neut % (Auto) % Lymph % (Auto) % Nance % (Auto) % Eos % (Auto) % Baso % (Auto) % Neut # (Auto) (1.40-6.50) K/uL Lymph # (Auto) (1.20-3.40) K/uL Nance # (Auto) (0.11-0.59) K/uL Eos # (Auto) (0.00-0.50) K/uL Baso # (Auto) (0.00-0.20) K/uL Immature Gran # (Auto) (0.01-0.20) K/uL PT 45.8 H (9.0-12.0) Seconds INR 4.6 H (0.9-1.1) Sodium (136-145) mmol/L Potassium (3.5-5.1) mmol/L Chloride (98-107) mmol/L Carbon Dioxide (21-32) mmol/L Anion Gap (3-11) BUN (6-23) mg/dl Creatinine (0.6-1.2) mg/dl Est Cr Clr Drug Dosing ml/min Est GFR ( Amer) ml/min Est GFR (Non-Af Amer) ml/min BUN/Creatinine Ratio (10-20) Glucose (70-99(Fasting)) mg/dl Lactate (0.4-2.0) mmol/L Calcium (8.6-10.3) mg/dl Magnesium (1.7-2.4) mg/dl Total Bilirubin (0.2-1.0) mg/dl Direct Bilirubin (0-0.2) mg/dl AST (13-39) U/L ALT (7-52) U/L Alkaline Phosphatase (34-104) U/L Troponin I High Sens 34.9 H (0-14) pg/ml Total Protein (6.0-8.3) gm/dl Albumin (3.4-5.0) gm/dl Procalcitonin (0-0.5) ng/ml Urine Color Urine Appearance (Clear) Urine pH (4.5-7.5) Ur Specific Vida (1.000-1.030) Urine Protein (Negative) Urine Glucose (UA) (Negative) Urine Ketones (Negative) Urine Blood (Negative) Urine Nitrite (Negative) Urine Bilirubin (Negative) Urine Urobilinogen (Negative) Ur Leukocyte Esterase (Negative) Urine WBC (Auto) (0-5) /hpf Urine RBC (Auto) (0-4) /hpf U Hyaline Cast (Auto) (0-5) /lpf U Epithel Cells (Auto) (0-5) /lpf Urine Bacteria (Auto) (Negative) Urine Mucus (None Prsent) Adenovirus (PCR) Not Detected (NotDetected) B. pertussis DNA (PCR) Not Detected (NotDetected) B.parapertussis DNA PCR Not Detected (NotDetected) C. pneumoniae DNA (PCR) Not Detected (NotDetected) Coronavirus OC43 (PCR) Not Detected (NotDetected) Coronavirus HKU1 (PCR) Not Detected (NotDetected) Coronavirus 229E (PCR) Not Detected (NotDetected) SARS-CoV-2 (PCR) Not Detected (NotDetected) Coronavirus NL63 (PCR) Not Detected (NotDetected) Human Metapneumovir PCR Not Detected (NotDetected) Influenza Type A (PCR) Not Detected (NotDetected) Influenza Type B (PCR) Not Detected (NotDetected) M. pneumoniae (PCR) Not Detected (NotDetected) Parainfluenza 1 (PCR) Not Detected (NotDetected) Parainfluenza 2 (PCR) Not Detected (NotDetected) Parainfluenza 3 (PCR) Not Detected (NotDetected) Parainfluenza 4 (PCR) Not Detected (NotDetected) RSV (PCR) Not Detected (NotDetected) Entero/Rhino (PCR) Not Detected (NotDetected) Administered Medications Discontinued Medications Heparin Sodium (Porcine) (Heparin 100 Unit/Ml 5ml Flush) Confirm Administered Dose 5 ml .ROUTE .STK-MED ONE Stop: 06/30/23 11:20 Last Admin: 06/30/23 12:55 Dose: 5 ml Documented By: YOLETTE Sodium Chloride (Nss) 1,000 mls @ 125 mls/hr IV .Q8H SHEEBA Stop: 07/30/23 07:29 Last Infusion: 06/30/23 12:55 Dose: Infused Documented By: Admin: 06/30/23 08:01 Dose: 125 mls/hr Documented By: GABRIELA Cefepime HCl (Maxipime) 2,000 mg in 20 mls @ 5 mls/min IV NOW STA; Protocol Stop: 06/30/23 08:33 Last Admin: 06/30/23 09:05 Dose: 5 mls/min Documented By: YOLETTE Acetaminophen (Ofirmev) 1,000 mg in 100 mls @ 400 mls/hr IV NOW STA Stop: 06/30/23 09:11 Last Infusion: 06/30/23 09:30 Dose: Infused Documented By: Admin: 06/30/23 09:05 Dose: 400 mls/hr Documented By: YOLETTE Sodium Chloride (Nss) 500 mls @ 999 mls/hr IV .Q31M ONE Stop: 06/30/23 11:30 Last Infusion: 06/30/23 12:00 Dose: Infused Documented By: Admin: 06/30/23 11:30 Dose: 999 mls/hr Documented By: NDW Imaging Data Radiologist's Impression: Chest X-Ray 06/30/23 07:17 XR chest 1V portable HISTORY: 83 years-old Female Sepsis acute sepsis COMPARISON: Chest CT 06/27/2023 TECHNIQUE: AP view of the chest FINDINGS: Cardiac silhouette is enlarged. Left subclavian [id number] catheter. Cardiomegaly. Emphysema. Small right pleural effusion with progressive multifocal right lung airspace opacities. Postoperative changes of the right hemithorax with chronic fracture deformities. Degenerative changes of the shoulders and spine. IMPRESSION: 1. Right pleural effusion with progressive pneumonia of the right lung. 2. Emphysema with postoperative changes of the right hemithorax redemonstrated. ACT 112: Negative or not required by law. The above report was generated using voice recognition software. It may contain grammatical, syntax or spelling errors. Electronically signed by: Rashawn Michael M.D. 06/30/2023 9:05 AM Pelvis X-Ray 06/30/23 07:27 XR pelvis 1-2V routine CLINICAL HISTORY: fall COMPARISON STUDY: Pelvis 04/05/2019. FINDINGS: No fracture or dislocation within the pelvis or hips. 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 Multiple colonic diverticula are noted. Soft tissues are unremarkable. The visualized sacrum is intact. IMPRESSION: No fracture or dislocation within the pelvis or hips. ACT 112: Negative or not required by law. Electronically signed by: Dada Valiente M.D. 06/30/2023 8:[address] 06/30/23 08:57 CT chest diagnostic wo con CT DOSE: 832.41 mGy.cm CLINICAL HISTORY: 83 years-old Female with pna/effusion/hx RLL lobectomy. Acute shortness of breath with pneumonia TECHNIQUE: Multiaxial CT images of the chest were performed without contrast. A dose lowering technique was utilized adhering to the principles of ALARA. COMPARISON: Chest radiograph of same day, chest CT 06/27/2023 FINDINGS: Left IJ Hdcswr-n-Tnsu catheter distal tip terminates within the mid SVC. Multinodular thyroid with numerous subcentimeter nodules. There are a few borderline-enlarged mediastinal and hilar lymph nodes. A right tracheoesophageal recess lymph node image 45 measures 11 mm, increased in size from prior where it measured 8 mm. Right hilar lymph nodes measure up to 10 mm, unchanged. A right retrocrural lymph node on image 178 measures 8 mm. Dilation of the pulmonary arteries suggestive of pulmonary arterial hypertension. Cardiomegaly with extensive coronary artery calcifications. Atherosclerosis of the aorta. Small right pleural effusion is similar to prior. Severe emphysema. Patchy ground-glass, reticular nodular and consolidative opacities are noted within the right lung which have progressively worsened. Postoperative changes of the right lung from prior pulmonary resection are again noted. Mucous plugging is most pronounced within the right lung base. A few scattered bilateral solid pulmonary nodules measuring up to 4 mm are unchanged and better seen on the prior study. Partially imaged intrahepatic biliary ductal dilation. Abdominal ascites. Probable right anterior upper abdominal wall soft tissue metastasis better seen on the prior study. No acute fracture. Unchanged scattered metastatic osteoblastic disease. IMPRESSION: 1. Tracheobronchial secretions with right lung base predominate mucus plugging redemonstrated. There is progressively worsened pneumonia throughout the right lung compared to the 06/27/2023 study. 2. Small right pleural effusion. 3. Mediastinal and right hilar lymphadenopathy. 4. Osteoblastic skeletal metastasis redemonstrated. 5. Abdominal structures are better evaluated on the 06/27/2023 study. ACT 112: Negative or not required by law. Electronically signed by: Rashawn Michael M.D. 06/30/2023 9:59 AM Discharge Plan Visit Data Chief Complaint: Fall Stated Complaint: FALL, HIP PAIN, COUGH ED Provider: Tracey Price Discharge Problem: Hypoxia, Pneumonia, Acute UTI (urinary tract infection), Sepsis, Anemia Patient Disposition: Admitted As Inpatient Discharge Instructions Interventions: ED Discharge Assessment Last Done: 06/30/23 13:50
[2023-06-30] MEDS: SODIUM CHLORIDE 0.9% 1,000 ML IV SCH (08:01)
[2023-06-30 08:23] LABS: Hematocrit (blood only) 27.4 % (37.0-47.0); Hemoglobin 8.7 g/dl (12.0-16.0); Mean Corpuscular Hemoglobin 28.3 pg (25.0-34.0); Mean Corpuscular Hgb Conc 31.8 g/dL (32.0-36.0); Mean Corpuscular Volume 89.3 fL (80.0-100.0); Platelet Count 219 K/uL (130-400); RDW Coefficient of Variation 18.6 % (11.5-14.5); RDW Standard Deviation 56.9 fL (36.4-46.3); Red Blood Count 3.07 M/uL (4.20-5.40); White Blood Count 16.96 K/ul (4.8-10.8)
[2023-06-30 08:44] LABS: Basophils # (auto) 0.01 K/uL (0.00-0.20); Basophils % (auto) 0.1 %; Immature Granulocytes # (auto) 0.11 K/uL (0.01-0.20); Immature Granulocytes % (auto) 0.6 %; Lymphocytes % (auto) 5.3 %; Monocytes % (auto) 1.2 %; Neutrophils # (auto) 15.74 K/uL (1.40-6.50); Neutrophils % (auto) 92.8 %
[2023-06-30 08:47] LABS: Albumin Level 3.1 gm/dl (3.4-5.0); Bilirubin Direct 0.1 mg/dl (0-0.2); Bilirubin,Total 0.3 mg/dl (0.2-1.0); Calcium 8.5 mg/dl (8.6-10.3); Magnesium 1.8 mg/dl (1.7-2.4); Potassium 4.8 mmol/L (3.5-5.1)
[2023-06-30 08:53] LABS: BUN Creatinine Ratio 24.1 (10-20); Creatinine Clr Calc Pharmacy 32.8 ml/min; Est GFR (African American) 42.4 ml/min; Est GFR (Non-African American) 36.6 ml/min; Total Protein 6.8 gm/dl (6.0-8.3)
[2023-06-30 08:54] LABS: Troponin I High Sensitivity 31.3 pg/ml (0-14)
--- NOTE | 2023-06-30 08:57 | XRay Report ---
XR pelvis 1-2V routine CLINICAL HISTORY: fall COMPARISON STUDY: Pelvis 04/05/2019. FINDINGS: No fracture or dislocation within the pelvis or hips. 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 Multiple colonic diverticula are noted. Soft tissues are unremarkable. The visualized sacru m is intact. IMPRESSION: No fracture or dislocation within the pelvis or hips. ACT 112: Negative or not required by law. Electronically signed by: Dada Valiente M.D. 06/30/2023 8:56 AM
[2023-06-30] MEDS: CEFEPIME 2,000 MG/20 ML VIAL IV STA (09:05)
[2023-06-30] MEDS: ACETAMINOPHEN 1,000 MG/100 ML VIAL IV STA (09:05)
--- NOTE | 2023-06-30 09:06 | XRay Report ---
XR chest 1V portable HISTORY: 83 years-old Female Sepsis acute sepsis COMPARISON: Chest CT 06/27/2023 TECHNIQUE: AP view of the chest FINDINGS: Cardiac silhouette is enlarged. Left subclavian Xfasxe-w-Oooq catheter. Cardiomegaly. Emphysema. Smal l right pleural effusion with progressive multifocal right lung airspace opacities. Postoperative corrie nges of the right hemithorax with chronic fracture deformities. Degenerative changes of the shoulders and spine. IMPRESSION: 1. Right pleural effusion with progressive pneumonia of the right lung. 2. Emphysema with postoperative changes of the right hemithorax redemonstrated. ACT 112: Negative or not required by law. The above report was generated using voice recognition software. It may contain grammatical, syntax o r spelling errors. Electronically signed by: Rashawn Michael M.D. 06/30/2023 9:05 AM
[2023-06-30 09:18] LABS: Appearance Urine Turbid (Clear); Bacteria Urine Automated 2+ (Negative); Bilirubin Urine Negative (Negative); Blood Urine 3+ (Negative); Color Urine Yellow; Epithelial Cell Urine Auto >30 /lpf (0-5); Glucose Urine UA Negative (Negative); Ketones Urine Negative (Negative); Leukocyte Esterase Urine 3+ (Negative); Nitrite Urine Positive (Negative); Protein Urine 2+ (Negative); Specific Gravity Urine 1.008 (1.000-1.030); Urobilinogen Urine Negative (Negative); WBC Urine Automated >30 /hpf (0-5)
[2023-06-30 09:25] LABS: INR 4.6 (0.9-1.1); Prothrombin Time 45.8 Seconds (9.0-12.0)
[2023-06-30 09:36] LABS: Mucus Urine Present (None Prsent)
--- NOTE | 2023-06-30 10:01 | CT Scan Report ---
CT chest diagnostic wo con CT DOSE: 832.41 mGy.cm CLINICAL HISTORY: 83 years-old Female with pna/effusion/hx RLL lobectomy. Acute shortness of breath with pneumonia TECHNIQUE: Multiaxial CT images of the chest were performed without contrast. A dose lowering techni que was utilized adhering to the principles of ALARA. COMPARISON: Chest radiograph of same day, chest CT 06/27/2023 FINDINGS: Left IJ Cnqkdf-j-Fkhb catheter distal tip terminates within the mid SVC. Multinodular thyro id with numerous subcentimeter nodules. There are a few borderline-enlarged mediastinal and hilar lym ph nodes. A right tracheoesophageal recess lymph node image 45 measures 11 mm, increased in size from prior where it measured 8 mm. Right hilar lymph nodes measure up to 10 mm, unchanged. A right retroc [place] lymph node on image 178 measures 8 mm. Dilation of the pulmonary arteries suggestive of pulmona ry arterial hypertension. Cardiomegaly with extensive coronary artery calcifications. Atherosclerosis of the aorta. Small right pleural effusion is similar to prior. Severe emphysema. Patchy ground-glass, reticular no dular and consolidative opacities are noted within the right lung which have progressively worsened. Postoperative changes of the right lung from prior pulmonary resection are again noted. Mucous pluggi ng is most pronounced within the right lung base. A few scattered bilateral solid pulmonary nodules m easuring up to 4 mm are unchanged and better seen on the prior study. Partially imaged intrahepatic b iliary ductal dilation. Abdominal ascites. Probable right anterior upper abdominal wall soft tissue m etastasis better seen on the prior study. No acute fracture. Unchanged scattered metastatic osteoblas tic disease. IMPRESSION: 1. Tracheobronchial secretions with right lung base predominate mucus plugging redemonstrated. There is progressively worsened pneumonia throughout the right lung compared to the 06/27/2023 study. 2. Small right pleural effusion. 3. Mediastinal and right hilar lymphadenopathy. 4. Osteoblastic skeletal metastasis redemonstrated. 5. Abdominal structures are better evaluated on the 06/27/2023 study. ACT 112: Negative or not required by law. Electronically signed by: Rashawn Michael M.D. 06/30/2023 9:59 AM
--- NOTE | 2023-06-30 10:13 | History & Physical Report ---
Date of Service June 30, 2023 Assessment & Plan (1) Pneumonia: Plan: Productive cough, burning with urination, and hypoxia (reported 74% on RA) developed the night of 06/28 Patient is unsure of falls last night; she does note she has been having left hip pain since sliding off her scooter on 06/27; on warfarin for history of DVTs Pelvic x-ray showed no fracture or dislocation of the hips or pelvis Leukocytosis at 16.96 with neutrophil predominance; afebrile CXR with right pleural effusion and progressive pneumonia of the right lung Chest CT revealed tracheobronchial secretions in the right lung base predominant mucous plugging; worsening pneumonia Procalcitonin WNL BioFire negative Continuous pulse oximetry Incentive spirometry, flutter valve Cefepime 2000 mg IV q8h Follow Blood Cx Guaifenesin 600 mg p.o. q12h Acetaminophen as needed for pain/fever PT/OT consulted A.m. CBC, BMP, PT/INR, mag (2) Acute UTI (urinary tract infection): Plan: UA positive on arrival; also 3+ blood in urine Clinically, patient endorses urinary incontinence and burning with urination Cefepime (as above) (3) Ovarian cancer: Plan: Dx in 02/2023 Last chemotherapy was on Tuesday 06/27 Pain and port required last chemotherapy to be given IV rather than through the port On clinical exam, the left upper chest port is not warm to touch; no eryt hematous demarcation or swelling Port culture ordered, pending; note: this was drawn after cefepime given in the ED Fl port study ordered to assess for patency Zofran as needed for recent chemotherapy-induced nausea/vomiting; QTc 414 (4) Sepsis: Plan: Tachycardic on arrival with elevated WBC; either pulmonary or urinary source Lactate WNL Difficulty with IVF resuscitation given poor venous access Blood cultures ordered, pending (5) NIXON (acute kidney injury): Plan: BUN 32, creatinine 1.33 (baseline 0.97), and EGFR 36.6 on arrival Likely secondary to hypoperfusion of the kidneys due to dehydration (BUN/creatinine elevated at ratio 24.1) Avoid nephrotoxic agents Patient would not like to use her port for fluid resuscitation, which will require going through a line in her hand; this will significantly decrease the rate at which fluid resuscitation can be done LR at 125mL/hr x 3 (6) DM type 2 (diabetes mellitus, type 2): Plan: Last A1c was 7.1% on 06/03/2023 Diet controlled with no oral medications T2DM diet for now, and will defer SSI given level of illness BSG ACHS (7) History of lung cancer: Plan: Dx in 12/2012, s/p RLL lobectomy (8) History of DVT (deep vein thrombosis): Plan: 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 On warfarin INR elevated at 4.6 on arrival Hold warfarin for now (9) Anemia: Plan: Hgb 8.7 and HCT 27.4 on arrival No signs of active bleeding on clinical exam Repeat H&H ordered, pending (10) Elevated troponin: Plan: Troponin 31.3-->34.9 on arrival, repeat pending EKG NSR at 78 bpm; QTc 414 Clinically, patient denies chest pain or pleuritic CP, but does note SOB at rest Continuous telemetry monitoring (11) Hypertension: Plan: Patient is on Lasix Will hold for now given NIXON, dehydration, and soft BP in the ED (12) Bipolar disorder: Plan: Continue lithium (13) Hypothyroidism: Plan: Continue levothyroxine Plan Disposition: Admit to PCU telemetry DNR/DNI T2DM diet (aspiration precautions) VTE PPx: Will defer Doppler/SCDs given patient is super therapeutic on warfarin (hold warfarin for now and recheck a.m. PT/INR) History of Present Illness Chief Complaint: Hypoxia, UTI Primary Care Provider: Kristel Morfin MD Serenity is an 83-year-old female with PMH of non-small cell lung cancer, ovarian cancer, COPD, T2DM, atrial flutter, bipolar disorder, DVT, PE, pulmonary emphysema, hypothyroidism, HTN, and recurrent UTIs. She presented via EMS for complaints of left hip pain, productive cough, burning with urination, and SOB at rest that developed the night of 06/28. Patient's daughter patient is currently in town from [place] as the patient is at undergoing chemotherapy for ovarian cancer; last treatment on Tuesday 06/27. Patient's daughter is prese nt at the bedside and provides additional history. Daughter reports that she was fine yesterday when she went to bed around 1999 that there was no change in mental status. She does note that the patient developed a productive cough last night. Upon waking, daughter reports that the patient was calling out for her, and noted that she been coughing all night. Patient is unsure if she fell, however daughter reports that she did slide off her scooter onto her hip on Tuesday night 06/27. Patient was moving around fine yesterday; ambulates with a walker/cane at baseline. Patient also notes that she has been having a very painful port in her left upper chest, which developed on Monday 06/26. Patient spoke with Dr. Spears at the [facility], and her chemo was given IV rather than through the port on Tuesday. No supplemental oxygen at home. No sick contacts. Patient reports that she took her evening dose of medications; in regard to warfarin, she had an elevated INR level at 4.2 on Monday 06/26 and was instructed to do the following (no warfarin on Tuesday, 3 mg on Tuesday, and then 4 mg Tuesday through Tuesday). Patient lives alone, but has help from her daughters. Patient reports she has not been taking Lasix as she has been wetting the bed. She denies recent tobacco or alcohol use; she is a former smoker but quit 20 years ago. Vital stable at time of admission. ED course: Cefepime 2000 mg IV (note: ED spoke with the pharmacy regarding the listed cephalosporin allergy and it was reported that she had this in the past and tolerated it well) Acetaminophen 1000 mg IV NSS 1000 mg IV ROS: Patient endorses body aches, SOB w/ exertion and rest, right arm pain, nausea/vomiting (which patient thinks is secondary to cancer treatment), burning with urination, incontinence, and knee/leg weakness. Patient denies fever, chills, night-sweats, CRANDALL, dizzyness/lightheadedness, chest pain, left shoulder/arm/jaw pain, stomach pain, diarrhea, constipation, blood in urinary/stool, or pain/numbness/tingling in the LEs. Allergies Allergy/AdvReac Type Severity Reaction Status Date / Time Penicillins Allergy Severe Throat Verified 06/03/23 08:56 swelling Sulfa (Sulfonamide Allergy Severe "Pain in Verified 06/03/23 08:56 Antibiotics) my heart" latex Allergy Itching Verified 06/03/23 08:56 aspirin AdvReac Unknown Verified 06/03/23 08:56 benzalkonium AdvReac Unknown Verified 06/03/23 08:56 Cephalosporins AdvReac Unknown Verified 06/03/23 08:56 oxycodone AdvReac Unresponsiv Verified 06/03/23 08:56 e sulfacetamide AdvReac Unknown Verified 06/03/23 08:56 Home Medications Medication Instructions Recorded Confirmed Type acetaminophen 500 mg capsule 1,000 mg PO Q6H PRN Pain 05/12/19 06/30/23 History (Tylophen) cholecalciferol (vitamin D3) 50 2,000 unit PO HS 05/12/19 06/30/23 History mcg (2,000 unit) capsule betamethasone dipropionate 0.05 % 1 applic topical BID PRN skin 01/28/21 06/30/23 Rx topical cream irritation #15 grams albuterol sulfate 90 mcg/actuation 1 inh inhalation QID PRN shortness 08/17/22 06/30/23 Rx aerosol inhaler of breath or wheezing #8.5 grams donepezil 5 mg tablet (Aricept) 5 mg PO HS #90 tabs 02/22/23 06/30/23 Rx warfarin 4 mg tablet 4 mg PO DIRECTED #90 tabs 02/22/23 06/30/23 Rx furosemide 20 mg tablet 0 mg PO UD 05/09/23 06/30/23 History levothyroxine 88 mcg tablet 88 mcg PO HS 05/09/23 06/30/23 History (Synthroid) lithium carbonate 300 mg 300 mg PO HS 05/09/23 06/30/23 History tablet,extended release methenamine hippurate 1 gram 1 g PO QPM #30 tabs 06/03/23 06/30/23 Rx tablet (Hiprex) warfarin 3 mg tablet 3 mg PO DAILY #30 tabs 06/07/23 06/30/23 Rx warfarin 5 mg tablet 5 mg PO .COMPLEX #90 tabs 06/07/23 06/30/23 Rx olanzapine 2.5 mg tablet 2.5 mg PO HS 06/30/23 06/30/23 History prochlorperazine maleate 10 mg 10 mg PO Q6H PRN Nausea And 06/30/23 06/30/23 History tablet Vomiting Past Med/Surg History Medical History (Updated 06/30/23 @ 15:25 by Tracey Price DO) Anemia Leg edema Cellulitis of right lower extremity Abdominal pain Atrial flutter, paroxysmal Macular degeneration History of COVID-19 Fall 2019- hospitalized at [facility], SOB Sleep apnea Per records Leg swelling Hypotension Skin lesion ear skin lesion removed at dermatology Valvular heart disease Echo 02/2023: Moderate to severe TR Obesity Hypertension Hyperlipidemia Non-ST elevation myocardial infarction (NSTEMI) of indeterminate age Noted per remote records years ago History of pulmonary embolism Pulmonary hypertension Echo: Severe pulmonary HTN, estimated RVSP 95-100mmhg Recurrent UTI (urinary tract infection) No current issues Chronic kidney disease Stage III History of DVT (deep vein thrombosis) 40+ yrs ago after childbirth, 2nd time 2008 following bedrest Asthma C. difficile colitis hx, no current/recent issues Atrial flutter s/p cardioversion Non-small cell carcinoma of lung 2013, surgery [facility], "no chemo required" Bipolar disorder Surgical History Port-A-Cath in place (05/13/23) Insertion of Access Port with Fluoroscopy, Left Subclavian(Left) - Emily Pollock DO Oncologist Dr. Spears History of total right knee replacement Right TKA (05/02/19): SAB at L3-4 + regional at [facility] S/P lobectomy of lung RLL @ [facility] 2013, tumor excision History of left knee replacement 2018 [facility] History of partial hysterectomy History of phacoemulsification of cataract of both eyes with intraocular lens implantation H/O varicose vein stripping B/L LE extremities Hx of cholecystectomy History of cardioversion ~2009 Family History Sister Breast cancer Colorectal cancer Mother Colorectal cancer Diabetes Father Lung cancer Brother Prostate cancer Denies family history of Ovarian cancer Myocardial infarction Social History Smoking Status: Former smoker Tobacco Type: Cigarettes packs per day: 1; Cigarettes Per Day: 10; Second Hand Exposure: Yes (hx smoked); Do You Dip or Chew Tobacco: No; Hx Alcohol Use: No Hx Substance Use: No Preferred Language: Croatian Communication Ability: Effective Visual Impairment: Limited Sand Blaster Required: No Beliefs That Will Affect Care: None marital status: / Current Living Situation: Alone 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 How many Children do You have: 3 Other Information That Helps Us Care for You: No Feels Safe at Home: Yes Safety Concerns: Feels Safe At This Time Childhood Exposure to Second-Hand Smoke: Yes Diet: regular during the past year weight has: remained stable Dental Care, Regularly: Yes Physical Activity Frequency: Does not Exercise Seatbelt Use: always Sunscreen Use: No Assistive Devices: Denture - Upper, Denture - Lower and Walker Review of Systems Review of Systems: See HPI above Physical Exam Physical Exam: General: no acute distress; lethargic; pleasant affect; non-toxic appearing; well-nourished; cooperative; SpO2 100% on 2L NC HEENT: normocephalic, atraumatic; no scleral icterus; PERRLA w/ EOMs intact; moist mucus membrane; vision and hearing grossly intact Neck: supple; no JVD; no lymphadenopathy; trachea midline Skin: warm, dry without signs of tenting; no cyanosis; no rashes, bruising, lesions, or erythema noted CV: chest wall NTP; RRR; S1/S2 normal; no murmurs/rubs/gallops; pulses intact and symmetric at radial, DP, and PT Lungs: no acute respiratory distress; symmetrical chest wall expansion; clear breath sounds across all lung casey w/o adventitious sounds; no wheezing ABD: Soft, NTP; BS present; no rebound/guarding; no ascites; no distention; negative CVA tenderness MSK: no tics or fasciculations; +2 pitting edema extending from the feet to the knees, shiny erythema; decreased lower extremity strength bilaterally 3/5 Neuro: A&Ox3; normal mood and affect; fluent speech; no facial droop; sensation grossly intact in the LEs b/l Results & Data Results & Data Vital Signs (Past 12 Hours) Vital Signs Temp Pulse Pulse Resp BP BP Pulse Ox 06/30/23 08:30 82 18 06/30/23 08:11 84 18 06/30/23 08:11 106/63 06/30/23 08:00 77 18 06/30/23 07:30 83 21 95 06/30/23 07:00 104/61 06/30/23 07:00 90 25 H 87 L 06/30/23 06:58 103 H 06/30/23 06:55 102 H 21 77 L 06/30/23 06:53 36.4 C L 97 H 18 99/61 L 74 L 06/30/23 06:53 36.4 C L 97 H 18 99/61 L 74 L O2 Del Method 06/30/23 08:30 06/30/23 08:11 06/30/23 08:11 06/30/23 08:00 06/30/23 07:30 06/30/23 07:00 06/30/23 07:00 06/30/23 06:58 06/30/23 06:55 06/30/23 06:53 Room Air 06/30/23 06:53 Room Air Laboratory Results Abnormal lab results 06/30/23 06/30/23 06/30/23 Range/Units 07:55 08:15 08:36 WBC 16.96 H (4.8-10.8) K/ul RBC 3.07 L (4.20-5.40) M/uL Hgb 8.7 L (12.0-16.0) g/dl Hct 27.4 L (37.0-47.0) % MCHC 31.8 L (32.0-36.0) g/dL RDW Std Deviation 56.9 H (36.4-46.3) fL RDW Coeff of Kim 18.6 H (11.5-14.5) % Neut # (Auto) 15.74 H (1.40-6.50) K/uL Lymph # (Auto) 0.90 L (1.20-3.40) K/uL PT 45.8 H (9.0-12.0) Seconds INR 4.6 H (0.9-1.1) Sodium 134 L (136-145) mmol/L BUN 32 H (6-23) mg/dl Creatinine 1.33 H (0.6-1.2) mg/dl BUN/Creatinine Ratio 24.1 H (10-20) Glucose 166 H (70-99(Fasting)) mg/dl Calcium 8.5 L (8.6-10.3) mg/dl Alkaline Phosphatase 113 H (34-104) U/L Troponin I High Sens 31.3 H (0-14) pg/ml Albumin 3.1 L (3.4-5.0) gm/dl Urine Appearance Turbid A (Clear) Urine Protein 2+ H (Negative) Urine Blood 3+ H (Negative) Urine Nitrite Positive A (Negative) Ur Leukocyte Esterase 3+ H (Negative) Urine WBC (Auto) >30 H (0-5) /hpf Urine RBC (Auto) 5-10 H (0-4) /hpf U Epithel Cells (Auto) >30 H (0-5) /lpf Urine Bacteria (Auto) 2+ H (Negative) Urine Mucus Present A (None Prsent) Diagnostic Findings Chest X-Ray 06/30/23 07:17 XR chest 1V portable HISTORY: 83 years-old Female Sepsis acute sepsis COMPARISON: Chest CT 06/27/2023 TECHNIQUE: AP view of the chest FINDINGS: Cardiac silhouette is enlarged. Left subclavian Vnwtap-b-Fozb catheter. Cardiomegaly. Emphysema. Small right pleural effusion with progressive multifocal right lung airspace opacities. Postoperative changes of the right hemithorax with chronic fracture deformities. Degenerative changes of the shoulders and spine. IMPRESSION: 1. Right pleural effusion with progressive pneumonia of the right lung. 2. Emphysema with postoperative changes of the right hemithorax redemonstrated. ACT 112: Negative or not required by law. The above report was generated using voice recognition software. It may contain grammatical, syntax or spelling errors. Electronically signed by: Rashawn Michael M.D. 06/30/2023 9:05 AM Pelvis X-Ray 06/30/23 07:27 XR pelvis 1-2V routine CLINICAL HISTORY: fall COMPARISON STUDY: Pelvis 04/05/2019. FINDINGS: No fracture or dislocation within the pelvis or hips. Mild osteoarthritis within the bilateral hips. Multiple colonic diverticula are noted. Soft tissues are unremarkable. The visualized sacrum is intact. IMPRESSION: No fracture or dislocation within the pelvis or hips. ACT 112: Negative or not required by law. Electronically signed by: Ddaa Valiente M.D. 06/30/2023 8:[address] 06/30/23 08:57 CT chest diagnostic wo con CT DOSE: 832.41 mGy.cm CLINICAL HISTORY: 83 years-old Female with pna/effusion/hx RLL lobectomy. Acute shortness of breath with pneumonia TECHNIQUE: Multiaxial CT images of the chest were performed without contrast. A dose lowering technique was utilized adhering to the principles of ALARA. COMPARISON: Chest radiograph of same day, chest CT 06/27/2023 FINDINGS: Left IJ Ohrtxx-d-Ykrv catheter distal tip terminates within the mid SVC. Multinodular thyroid with numerous subcentimeter nodules. There are a few borderline-enlarged mediastinal and hilar lymph nodes. A right tracheoesophageal recess lymph node image 45 measures 11 mm, increased in size from prior where it measured 8 mm. Right hilar lymph nodes measure up to 10 mm, unchanged. A right retrocrural lymph node on image 178 measures 8 mm. Dilation of the pulmonary arteries suggestive of pulmonary arterial hypertension. Cardiomegaly with extensive coronary artery calcifications. Atherosclerosis of the aorta. Small right pleural effusion is similar to prior. Severe emphysema. Patchy ground-glass, reticular nodular and consolidative opacities are noted within the right lung which have progressively worsened. Postoperative changes of the right lung from prior pulmonary resection are again noted. Mucous plugging is most pronounced within the right lung base. A few scattered bilateral solid pulmonary nodules measuring up to 4 mm are unchanged and better seen on the prior study. Partially imaged intrahepatic biliary ductal dilation. Abdominal ascites. Probable right anterior upper abdominal wall soft tissue metastasis better seen on the prior study. No acute fracture. Unchanged scattered metastatic osteoblastic disease. IMPRESSION: 1. Tracheobronchial secretions with right lung base predominate mucus plugging redemonstrated. There is progressively worsened pneumonia throughout the right lung compared to the 06/27/2023 study. 2. Small right pleural effusion. 3. Mediastinal and right hilar lymphadenopathy. 4. Osteoblastic skeletal metastasis redemonstrated. 5. Abdominal structures are better evaluated on the 06/27/2023 study. ACT 112: Negative or not required by law. Electronically signed by: Rashawn Michael M.D. 06/30/2023 9:59 AM Code Status & VTE Plan Code Status DNR/DNI VTE Prophylaxis Plan VTE Prophylaxis will be ordered: Yes Supervising Physician Co-Signing Physician Notes Patient seen and examined, chart reviewed, case discussed with aDda Arizmendi and I agree with the assessment and plan as above except as otherwise noted Labs and images reviewed History of non-small cell lung cancer, ovarian cancer, COPD, type 2 diabetes mellitus who presents with productive cough, dysuria, and progressive shortness of breath of 1 day. UA is infected appearing. Additionally patient shows signs of progressive pneumonia on CT. Was recently with hospital exposure. Will admit on cefepime/vancomycin. This will also cover UTI with cultures pending. Blood cultures are pending Patient initially declined port culture as at her last infusion this was not able to be infused/dronedarone and caused her pain. Examination of the port site on the left chest is without any overlying erythema/warmth/tenderness. There is slight pinkness at localization ranges however there is no demarcated erythema, crepitus, or signs of infection. Patient is agreeable to having a culture drawn from her port, initially declined this. This was drawn post initial antibiotics. Continue to follow other 2 peripheral blood cultures. Due to difficulty withdrawal/flushing port study with contrast has been ordered. She is fatigued but nontoxic-appearing at the bedside. Lungs are diminished with crackles in the bases. Multiple aspiration events recently, suspect patient with CAP versus aspiration pneumonia. Agree with assessment and management as above. Had some subtherapeutic INR levels 1 month ago however has been therapeutic and most recently supratherapeutic for the last month with pain at the port. No signs of overlying infection. Low suspicion for thrombosis Patient has had recurrent episodes of coughing after trying to swallow thin liquids and notes that she has had multiple aspiration events. N.p.o., IV FM, speech consulted for video swallow evaluation. Head of the bed up to 30 degrees. Covered with antibiotics as above, if she is not clinically improving then can add anaerobic coverage will defer at this time Reevaluation: Port study shows contrast flowing freely to catheter tip terminating in the vena cava no malfunction or other abnormality appreciated. PG Care Time/CCT Total # of Minutes Spent Total Time Spent with Patient: Total time spent is greater than 50% in coordination of care (as documented) at patient's floor/unit and/or counseling patient: [place] [address] INT INP/OBS CARE 3/75MIN Patient Type Established History Comprehensive Exam Comprehensive Medical Decision Making High Complexity Diagnoses Pneumonia J18.9 Acute UTI (urinary tract infection) N39.0 Ovarian cancer C56.9 Sepsis A41.9 NIXON (acute kidney injury) N17.9 DM type 2 (diabetes mellitus, type 2) E11.9 History of lung cancer Z85.118 History of DVT (deep vein thrombosis) Z86.718 Anemia D64.9 Elevated troponin R79.89 Primary hypertension I10 Hypertension type: primary hypertension Bipolar disorder F31.9 Hypothyroidism E03.9 (11) Hypertension Hypertension type: primary hypertension Qualified Code(s): I10 - Essential (primary) hypertension
[2023-06-30 10:18] LABS: Adenovirus PCR Not Detected (NotDetected); Bordetella parapertussis PCR Not Detected (NotDetected); Bordetella pertussis PCR Not Detected (NotDetected); Chlamydia pneumoniae PCR Not Detected (NotDetected); Coronavirus 229E PCR Not Detected (NotDetected); Coronavirus CoV-2 (COVID19)PCR Not Detected (NotDetected); Coronavirus HKU1 PCR Not Detected (NotDetected); Coronavirus NL63 PCR Not Detected (NotDetected); Coronavirus OC43PCR Not Detected (NotDetected); Human Metapneumovirus PCR Not Detected (NotDetected); Influenza A PCR Not Detected (NotDetected); Influenza B PCR Not Detected (NotDetected); Mycoplasma pneumoniae PCR Not Detected (NotDetected); Parainfluenza Virus 1 PCR Not Detected (NotDetected); Parainfluenza Virus 2 PCR Not Detected (NotDetected); Parainfluenza Virus 3 PCR Not Detected (NotDetected); Parainfluenza Virus 4 PCR Not Detected (NotDetected); Respiratory Syncytial VirusPCR Not Detected (NotDetected); Rhinovirus/Enterovirus PCR Not Detected (NotDetected)
[2023-06-30] MEDS: SODIUM CHLORIDE 0.9% 500 ML IV ONE (11:30)
[2023-06-30] MEDS: HEPARIN 100 UNIT/ML 5ML FLUSH ONE ×2 (12:55→15:59)
[2023-06-30] MEDS ORDERED: GLUCAGON FOR INJ 1 MG VIAL SQ PRN (15:16)
[2023-06-30] MEDS ORDERED: CARBOHYDRATES FOR HYPOGLYCEMIA PO PRN (15:16)
[2023-06-30] MEDS ORDERED: GLUCOSE 10 TAB/TUBE PO PRN (15:16)
[2023-06-30] MEDS ORDERED: DEXTROSE 50% 50 ML SYRINGE IV PRN (15:16)
[2023-06-30] MEDS ORDERED: GLUCOSE 40% GEL 15 GM TUBE PO PRN (15:16)
[2023-06-30] MEDS ORDERED: ALBUTEROL HFA 8 GM INHALER INH PRN (15:16)
[2023-06-30] MEDS ORDERED: ACETAMINOPHEN 325 MG TAB PO PRN (15:16)
--- NOTE | 2023-06-30 15:27 | Fluoroscopy Report ---
FL a-port check CLINICAL HISTORY: pain/diffuct draw infusion COMPARISON STUDY: Chest CT of same day FLUOROSCOPY TIME: 7 seconds FLUOROSCOPY IMAGES: 52 Ka,r: 34.36 mGy FINDINGS: Left subclavian Qyhizc-j-Tfnz catheter was accessed. 11 mL Optiray 320 was injected into th e catheter and images demonstrate the contrast flowing freely from the catheter tip into the superior vena cava. No catheter malfunction or other abnormality identified. IMPRESSION: Functioning left subclavian Jpmofp-c-Njzb catheter with distal tip terminating within the SVC. ACT 112: Negative or not required by law. Electronically signed by: Rashawn Michael M.D. 06/30/2023 3:26 PM
[2023-06-30] MEDS: LACTATED RINGER'S 1,000 ML IV SCH (15:59)
[2023-06-30 16:48] LABS: Hematocrit (blood only) 27.8 % (37.0-47.0); Hemoglobin 8.6 g/dl (12.0-16.0)
[2023-06-30] MEDS: LITHIUM CARBONATE SLOW REL 300 MG TAB PO SCH (20:55)
[2023-06-30] MEDS: guaiFENesin 600 MG TABCR PO SCH (20:55)
[2023-06-30] MEDS: DONEPEZIL HCL 5 MG TAB PO SCH (20:55)
[2023-06-30] MEDS: CEFEPIME 2,000 MG in SYRINGE 0 ML IV SCH (20:55)
[2023-06-30] MEDS: LEVOTHYROXINE SODIUM 88 MCG TABLET PO SCH (20:55)
[2023-06-30] MEDS: OLANZAPINE 2.5 MG TAB PO SCH (20:55)
[2023-07-01 06:06] LABS: Hematocrit (blood only) 28.2 % (37.0-47.0); Hemoglobin 8.6 g/dl (12.0-16.0); Mean Corpuscular Hemoglobin 28.2 pg (25.0-34.0); Mean Corpuscular Hgb Conc 30.5 g/dL (32.0-36.0); Mean Corpuscular Volume 92.5 fL (80.0-100.0); Mean Platelet Volume 10.8 fL (9.4-12.4); Platelet Count 179 K/uL (130-400); RDW Coefficient of Variation 18.7 % (11.5-14.5); RDW Standard Deviation 59.9 fL (36.4-46.3); Red Blood Count 3.05 M/uL (4.20-5.40); White Blood Count 11.16 K/ul (4.8-10.8)
[2023-07-01 06:30] LABS: BUN Creatinine Ratio 25.6 (10-20); Creatinine Clr Calc Pharmacy 36.6 ml/min; Est GFR (African American) 49.6 ml/min; Est GFR (Non-African American) 42.8 ml/min; Magnesium 1.9 mg/dl (1.7-2.4); Potassium 4.6 mmol/L (3.5-5.1)
[2023-07-01 06:35] LABS: INR 2.7 (0.9-1.1); Prothrombin Time 28.1 Seconds (9.0-12.0)
[2023-07-01 06:39] LABS: Basophils # (auto) 0.02 K/uL (0.00-0.20); Basophils % (auto) 0.2 %; Immature Granulocytes # (auto) 0.06 K/uL (0.01-0.20); Immature Granulocytes % (auto) 0.5 %; Lymphocytes # (auto) 0.41 K/uL (1.20-3.40); Lymphocytes % (auto) 3.7 %; Monocytes # (auto) 0.08 K/uL (0.11-0.59); Monocytes % (auto) 0.7 %; Neutrophils # (auto) 10.59 K/uL (1.40-6.50); Neutrophils % (auto) 94.9 %
--- NOTE | 2023-07-01 07:52 | Hospitalist Progress Note ---
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 q12h (2) Acute UTI (urinary tract infection): Plan: Urine culture with Gram negative bacilli clinical symptoms are present Cefepime (as above) (3) Ovarian cancer: Plan: Dx in 02/2023 Last chemotherapy was on Tuesday06/28/23 Pain at a port required last chemotherapy to be given IV rather than through the port, port eval shows patency Zofran as needed for recent chemotherapy-induced nausea/vomiting; (4) NIXON (acute kidney injury): Plan: with CKD 3, likely from illness and decreased po intake volume resusitation (5) DM type 2 (diabetes mellitus, type 2): Plan: Last A1c was 7.1% on 06/03/2023 Diet controlled with no oral medications T2DM diet for now, and will defer SSI given level of illness BSG ACHS (6) History of DVT (deep vein thrombosis): Plan: 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 On warfarin INR elevated at 4.6 on arrival Hold warfarin, outpt consideration of conversion to Eliquis per daughter (7) Anemia: Plan: Hgb 8.7 and HCT 27.4 on arrival No signs of active bleeding on clinical exam Repeat H&H ordered, pending (8) Elevated troponin: Plan: Troponin 31.3-->34.9 on arrival, repeat pending Clinically, patient denies chest pain or pleuritic CP, but does note SOB at rest Continuous telemetry monitoring (9) Bipolar disorder: Plan: Continue lithium, previous recent levels have been suptherapeutic Plan DNR/DNI VTE PPx: pt on warfarin Admission and Anticipated Discharge Date Admission Date: June 30, 2023 Results & Data Results & Data Vital Signs (Past 12 Hours) Vital Signs Temp Pulse Pulse Resp BP BP Pulse Ox 07/01/23 03:52 97.5 F L 82 20 152/79 H 96 06/30/23 23:34 97.5 F L 85 19 125/73 97 06/30/23 21:57 76 06/30/23 21:00 06/30/23 20:03 97.5 F L 77 20 102/59 L O2 Del Method O2 Flow Rate 07/01/23 03:52 Nasal Cannula 4 06/30/23 23:34 Nasal Cannula 4 06/30/23 21:57 06/30/23 21:00 Nasal Cannula 4 06/30/23 20:03 Nasal Cannula PG Care Time/CCT Total # of Minutes Spent Total Time Spent with Patient: Total time spent is greater than 50% in coordination of care (as documented) at patient's floor/unit and/or counseling patient: Coding Level of Care Code 17165 SUB INP/OBS CARE 3/50MIN Diagnoses Pneumonia J18.9 Acute UTI (urinary tract infection) N39.0 Ovarian cancer C56.9 NIXON (acute kidney injury) N17.9 DM type 2 (diabetes mellitus, type 2) E11.9 History of DVT (deep vein thrombosis) Z86.718 Anemia D64.9 Elevated troponin R79.89 Bipolar disorder F31.9
--- NOTE | 2023-07-01 14:53 | Fluoroscopy Report ---
MODIFIED BARIUM SWALLOW CLINICAL HISTORY: r/o aspiration COMPARISON STUDY: None. FLUOROSCOPY TIME: 2.37 minutes. Ka, r: 22.4 mGy. TECHNIQUE: A modified barium swallow was performed in conjunction with Speech Pathology. The patient ingested varying consistencies of barium containing material. Video fluoroscopy was performed. FINDINGS: There were multiple episodes of tracheal aspiration with thin liquids. This persisted despi te chin tuck. There was no aspiration with nectar thick liquids, pudding or cookie and pudding consis tencies. There is mild premature spillage. Epiglottic inversion was normal. IMPRESSION: 1. Multiple episodes of tracheal aspiration with thin liquids. No aspiration with the remainder of co nsistencies. 2. Full recommendations by Speech pathology to follow. ACT 112: Negative or not required by law. Electronically signed by: Scott Obregon M.D. 07/01/2023 2:51 PM
[2023-07-02 06:29] LABS: Hematocrit (blood only) 31.2 % (37.0-47.0); Hemoglobin 9.4 g/dl (12.0-16.0); Mean Corpuscular Hemoglobin 28.4 pg (25.0-34.0); Mean Corpuscular Hgb Conc 30.1 g/dL (32.0-36.0); Mean Corpuscular Volume 94.3 fL (80.0-100.0); Mean Platelet Volume 11.3 fL (9.4-12.4); Platelet Count 189 K/uL (130-400); RDW Coefficient of Variation 18.9 % (11.5-14.5); RDW Standard Deviation 61.9 fL (36.4-46.3); Red Blood Count 3.31 M/uL (4.20-5.40); White Blood Count 10.39 K/ul (4.8-10.8)
--- NOTE | 2023-07-02 06:33 | Electrocardiogram Report ---
Test Reason : Blood Pressure : / mmHG Vent. Rate : 078 BPM Atrial Rate : 078 BPM P-R Int : 206 ms QRS Dur : 082 ms QT Int : 364 ms P-R-T Axes : -14 053 027 degrees QTc Int : 414 ms Normal sinus rhythm Low voltage QRS Borderline ECG When compared with ECG of 04-MAY-2023 10:20, No significant change was found Confirmed by Sabas Sims ([id number]) on 07/02/2023 6:33:15 AM Referred By: Confirmed By:Sabas Sims
[2023-07-02 06:45] LABS: Calcium 9.5 mg/dl (8.6-10.3); Potassium 4.7 mmol/L (3.5-5.1)
[2023-07-02 06:51] LABS: BUN Creatinine Ratio 23.5 (10-20); Basophils # (auto) 0.01 K/uL (0.00-0.20); Basophils % (auto) 0.1 %; Creatinine Clr Calc Pharmacy 37.3 ml/min; Eosinophils # (auto) 0.01 K/uL (0.00-0.50); Eosinophils % (auto) 0.1 %; Est GFR (African American) 50.6 ml/min; Est GFR (Non-African American) 43.7 ml/min; Immature Granulocytes # (auto) 0.05 K/uL (0.01-0.20); Immature Granulocytes % (auto) 0.5 %; Lymphocytes # (auto) 0.69 K/uL (1.20-3.40); Lymphocytes % (auto) 6.6 %; Neutrophils # (auto) 9.53 K/uL (1.40-6.50); Neutrophils % (auto) 91.7 %
--- NOTE | 2023-07-02 07:29 | Hospitalist Progress Note ---
Date of Service July 02, 2023 Assessment & Plan (1) Pneumonia: Plan: Sepsis from pulmonary or urine source present on admission Productive cough, Leukocytosis, CXR with right pleural effusion and progressive pneumonia of the right lung Poor swallowing eval makes at risk for aspiration pneumonia Chest CT revealed tracheobronchial secretions in the right lung base predominant mucous plugging; worsening pneumonia from previous progressive osteoblastic metastasis, concern from adenocarcinoma of ovarian cancer, but did have adenocarcinoma of lung Dx in 12/2012, s/p RLL lobectomy Procalcitonin WNL BioFire negative elevated troponin from demand ischemia not acs Concern for Gram negative pneumonia, cefepime 2000 mg IV q8h Follow Blood Cx, negative at this time Guaifenesin 600 mg p.o. q12h (2) Acute UTI (urinary tract infection): Plan: Urine culture with Gram negative bacilli clinical symptoms are present Cefepime (as above) (3) Ovarian cancer: Plan: Dx in 02/2023 Last chemotherapy was on Tuesday06/28/23 Pain at a port required last chemotherapy to be given IV rather than through the port, port eval shows patency Zofran as needed for recent chemotherapy-induced nausea/vomiting; (4) NIXON (acute kidney injury): Plan: with CKD 3, likely from illness and decreased po intake volume resusitation pt with progressive Hypernatremia, will add ivf and follow, her swallowing issue makes po intake a challenge (5) DM type 2 (diabetes mellitus, type 2): Plan: Last A1c was 7.1% on 06/03/2023 Diet controlled with no oral medications T2DM diet for now, and will defer SSI given level of illness BSG ACHS (6) History of DVT (deep vein thrombosis): Plan: 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 On warfarin INR elevated at 4.6 on arrival Hold warfarin, outpt consideration of conversion to Eliquis per daughter (7) Anemia: Plan: Hgb 8.7 and HCT 27.4, stable No signs of active bleeding on clinical exam (8) Elevated troponin: Plan: Troponin 31.3-->34.9 on arrival, suspect demand ischemia Clinically, patient denies chest pain or pleuritic CP, but does note SOB at rest Continuous telemetry monitoring (9) Bipolar disorder: Plan: Continue lithium, previous recent levels have been suptherapeutic Plan DNR/DNI VTE PPx: pt on warfarin Admission and Anticipated Discharge Date Admission Date: June 30, 2023 Subjective pt feeling improved heart rate controlled , still some productive coughing , awaiting urine cultures preliminary gram negative Physical Exam Physical Exam: Pt is feeling somewhat better, cultures not finalized right chest with decreased breath sounds, and poor air movement Results & Data Results & Data Vital Signs (Past 12 Hours) Vital Signs Temp Pulse Pulse Resp BP BP Pulse Ox 07/02/23 07:00 78 07/02/23 03:41 97.5 F L 80 18 149/69 H 99 07/01/23 23:57 97.5 F L 100 H 19 136/68 94 07/01/23 22:00 98 H 07/01/23 21:30 07/01/23 19:54 97.7 F 123 H 18 100/62 O2 Del Method O2 Flow Rate 07/02/23 07:00 07/02/23 03:41 Nasal Cannula 4 07/01/23 23:57 Nasal Cannula 4 07/01/23 22:00 07/01/23 21:30 Nasal Cannula 4 07/01/23 19:54 Nasal Cannula Laboratory Results review cbc review prp PG Care Time/CCT Total # of Minutes Spent Total Time Spent with Patient: Total time spent is greater than 50% in coordination of care (as documented) at patient's floor/unit and/or counseling patient: Coding Level of Care Code 43747 SUB INP/OBS CARE 3/50MIN Diagnoses Pneumonia J18.9 Acute UTI (urinary tract infection) N39.0 Ovarian cancer C56.9 NIXON (acute kidney injury) N17.9 DM type 2 (diabetes mellitus, type 2) E11.9 History of DVT (deep vein thrombosis) Z86.718 Anemia D64.9 Elevated troponin R79.89 Bipolar disorder F31.9
[2023-07-02] MEDS: SODIUM CHLORIDE 0.9% 1,000 ML IV SCH (08:53)
[2023-07-02 09:18] LABS: INR 1.7 (0.9-1.1); Prothrombin Time 18.4 Seconds (9.0-12.0)
[2023-07-02] MEDS: APIXABAN 5 MG TABLET PO SCH (20:32)
[2023-07-03 07:42] LABS: Basophils # (auto) 0.04 K/uL (0.00-0.20); Basophils % (auto) 0.6 %; Eosinophils # (auto) 0.05 K/uL (0.00-0.50); Eosinophils % (auto) 0.8 %; Hematocrit (blood only) 29.1 % (37.0-47.0); Hemoglobin 8.7 g/dl (12.0-16.0); Immature Granulocytes # (auto) 0.04 K/uL (0.01-0.20); Immature Granulocytes % (auto) 0.6 %; Lymphocytes # (auto) 0.67 K/uL (1.20-3.40); Lymphocytes % (auto) 10.7 %; Mean Corpuscular Hemoglobin 28.2 pg (25.0-34.0); Mean Corpuscular Hgb Conc 29.9 g/dL (32.0-36.0); Mean Corpuscular Volume 94.5 fL (80.0-100.0); Mean Platelet Volume 11.1 fL (9.4-12.4); Monocytes # (auto) 0.03 K/uL (0.11-0.59); Monocytes % (auto) 0.5 %; Neutrophils # (auto) 5.43 K/uL (1.40-6.50); Neutrophils % (auto) 86.8 %; Platelet Count 192 K/uL (130-400); RDW Coefficient of Variation 18.5 % (11.5-14.5); RDW Standard Deviation 61.3 fL (36.4-46.3); Red Blood Count 3.08 M/uL (4.20-5.40); White Blood Count 6.26 K/ul (4.8-10.8)
[2023-07-03 08:00] LABS: BUN Creatinine Ratio 26.3 (10-20); Calcium 9.4 mg/dl (8.6-10.3); Creatinine Clr Calc Pharmacy 45.1 ml/min; Est GFR (African American) 63.7 ml/min; Potassium 4.8 mmol/L (3.5-5.1)
[2023-07-03 08:20] LABS: INR 1.6 (0.9-1.1); Prothrombin Time 16.7 Seconds (9.0-12.0)
--- NOTE | 2023-07-03 14:42 | Hospitalist Progress Note ---
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 q12h (2) Acute UTI (urinary tract infection): Plan: Urine culture with Gram negative bacilli serratia transtion to po abtx clinical symptoms are present (3) Ovarian cancer: Plan: Dx in 02/2023 Last chemotherapy was on Tuesday06/28/23 Pain at a port required last chemotherapy to be given IV rather than through the port, port eval shows patency Zofran as needed for recent chemotherapy-induced nausea/vomiting; (4) NIXON (acute kidney injury): Plan: resolved with CKD 3, likely from illness and decreased po intake volume resusitation pt with progressive Hypernatremia, will add ivf and follow, her swallowing issue makes po intake a challenge (5) DM type 2 (diabetes mellitus, type 2): Plan: Last A1c was 7.1% on 06/03/2023 Diet controlled with no oral medications T2DM diet for now, and will defer SSI given level of illness BSG ACHS (6) History of DVT (deep vein thrombosis): Plan: 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 transtion to [facility] INR elevated at 4.6 on arrival (7) Anemia: Plan: Hgb 8.7 and HCT 27.4, stable and increasing No signs of active bleeding on clinical exam (8) Elevated troponin: Plan: Troponin 31.3-->34.9 on arrival, suspect demand ischemia Clinically, patient denies chest pain or pleuritic CP, but does note SOB at rest Continuous telemetry monitoring (9) Bipolar disorder: Plan: Continue lithium, previous recent levels have been suptherapeutic levle pending for am Plan DNR/DNI VTE PPx: pt on warfarin hypernatremia, will give 500ml 1/2 nss Admission and Anticipated Discharge Date Admission Date: June 30, 2023 Subjective pt feels improved, PT/OT and Speech are all with limitations, family and pt are supportive of rehab Physical Exam Physical Exam: pt is awake and alert, she has no distress cardiac is regular lungs are clear abd is soft and non tender Results & Data Results & Data Vital Signs (Past 12 Hours) Vital Signs Temp Pulse Pulse Resp BP BP Pulse Ox 07/03/23 10:56 97.5 F L 98 H 20 133/79 93 07/03/23 08:00 07/03/23 07:54 98.1 F 81 20 129/69 98 07/03/23 07:00 07/03/23 07:00 62 07/03/23 04:36 97.3 F L 77 18 146/71 H 90 Pulse Ox O2 Del Method O2 Del Method O2 Flow Rate O2 Flow Rate 07/03/23 10:56 Nasal Cannula 2 07/03/23 08:00 Nasal Cannula 2 07/03/23 07:54 Nasal Cannula 2 07/03/23 07:00 96 Nasal Cannula 2 07/03/23 07:00 07/03/23 04:36 Nasal Cannula 3 Laboratory Results review cbc review chemistry PG Care Time/CCT Total # of Minutes Spent Total Time Spent with Patient: Total time spent is greater than 50% in coordination of care (as documented) at patient's floor/unit and/or counseling patient: Coding Level of Care Code 45319 SUB INP/OBS CARE 2/35MIN Diagnoses Pneumonia J18.9 Acute UTI (urinary tract infection) N39.0 Ovarian cancer C56.9 NIXON (acute kidney injury) N17.9 DM type 2 (diabetes mellitus, type 2) E11.9 History of DVT (deep vein thrombosis) Z86.718 Anemia D64.9 Elevated troponin R79.89 Bipolar disorder F31.9
[2023-07-03] MEDS: SODIUM CHLORIDE 0.45 % 1,000 ML IV SCH (15:15)
[2023-07-03] MEDS: ONDANSETRON INJ 2 MG/ML 2 ML VIAL IV PRN (16:08)
[2023-07-03] MEDS: CEFDINIR 300 MG CAP PO SCH (22:01)
[2023-07-04 07:08] LABS: BUN Creatinine Ratio 25.5 (10-20); Calcium 9.5 mg/dl (8.6-10.3); Creatinine Clr Calc Pharmacy 41.9 ml/min; Est GFR (African American) 58.5 ml/min; Est GFR (Non-African American) 50.5 ml/min; Potassium 4.9 mmol/L (3.5-5.1)
[2023-07-04] MEDS: SODIUM CHLORIDE 0.45 % 1,000 ML IV SCH (08:35)
--- NOTE | 2023-07-04 18:46 | Hospitalist Progress Note ---
Date of Service July 04, 2023 Assessment & Plan (1) Pneumonia: Plan: Sepsis from pulmonary or urine source present on admission Productive cough, Leukocytosis, CXR with right pleural effusion and progressive pneumonia of the right lung Poor swallowing eval makes at risk for aspiration pneumonia Chest CT revealed tracheobronchial secretions in the right lung base predominant mucous plugging; worsening pneumonia from previous progressive osteoblastic metastasis, concern from adenocarcinoma of ovarian cancer, but did have adenocarcinoma of lung Dx in 12/2012, s/p RLL lobectomy Pt has not improved dramatically, will re ct lung, concern would be for progr essive cancer, change antibiotics to Levaquin Procalcitonin WNL BioFire negative elevated troponin from demand ischemia not acs Concern for Gram negative pneumonia, with functional decline repeat imaging and change antibiotics Follow Blood Cx, negative at this time Guaifenesin 600 mg p.o. q12h (2) Acute UTI (urinary tract infection): Plan: Urine culture with Gram negative bacilli serratia transtion to po abtx clinical symptoms are present (3) Ovarian cancer: Plan: Dx in 02/2023 Last chemotherapy was on Tuesday06/28/23 Pain at a port required last chemotherapy to be given IV rather than through the port, port eval shows patency Zofran as needed for recent chemotherapy-induced nausea/vomiting; (4) NIXON (acute kidney injury): Plan: resolved with CKD 3, likely from illness and decreased po intake volume resusitation pt with progressive Hypernatremia, will add ivf and follow, her swallowing issue makes po intake a challenge (5) DM type 2 (diabetes mellitus, type 2): Plan: Last A1c was 7.1% on 06/03/2023 Diet controlled with no oral medications T2DM diet for now, and will defer SSI given level of illness BSG ACHS (6) History of DVT (deep vein thrombosis): Plan: 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 transtion to [facility] INR elevated at 4.6 on arrival (7) Anemia: Plan: Hgb 8.7 and HCT 27.4, stable and increasing No signs of active bleeding on clinical exam (8) Elevated troponin: Plan: Troponin 31.3-->34.9 on arrival, suspect demand ischemia Clinically, patient denies chest pain or pleuritic CP, but does note SOB at rest Continuous telemetry monitoring (9) Bipolar disorder: Plan: Continue lithium, previous recent levels have been suptherapeutic lithium is 0.5 subtherapeutic Plan DNR/DNI VTE PPx: pt on warfarin hypernatremia, once again give 1/2 nss Admission and Anticipated Discharge Date Admission Date: June 30, 2023 Subjective pt feels improved, PT/OT and Speech are all with limitations, family and pt are supportive of rehab pts oral intake is poor given pep talk to try to eat Physical Exam Physical Exam: pt is awake and alert, she has no distress cardiac is regular lungs are clear abd is soft and non tender Results & Data Results & Data Vital Signs (Past 12 Hours) Vital Signs Temp Pulse Resp BP Pulse Ox O2 Del Method O2 Flow Rate 07/04/23 15:47 97.5 F L 80 17 125/58 L 98 Nasal Cannula 3 07/04/23 13:35 98 Nasal Cannula 2 07/04/23 13:30 88 L Room Air 07/04/23 11:49 97.5 F L 77 18 132/70 100 Nasal Cannula 3 07/04/23 08:04 97.3 F L 83 18 144/58 H 100 Nasal Cannula 3 07/04/23 08:00 Nasal Cannula 2 Laboratory Results review chemistry review lithium PG Care Time/CCT Total # of Minutes Spent Total Time Spent with Patient: Total time spent is greater than 50% in coordination of care (as documented) at patient's floor/unit and/or counseling patient: Coding Level of Care Code 30230 SUB INP/OBS CARE 3/50MIN Diagnoses Pneumonia J18.9 Acute UTI (urinary tract infection) N39.0 Ovarian cancer C56.9 NIXON (acute kidney injury) N17.9 DM type 2 (diabetes mellitus, type 2) E11.9 History of DVT (deep vein thrombosis) Z86.718 Anemia D64.9 Elevated troponin R79.89 Bipolar disorder F31.9
--- NOTE | 2023-07-04 20:12 | CT Scan Report ---
Exam(s): CT CHEST Without Contrast EXAM: CT Chest Without Intravenous Contrast CLINICAL HISTORY: Reason for exam: eval progression or resolution of pnx. TECHNIQUE: Axial computed tomography images of the chest without intravenous contrast. CTDI is 26.7 mGy and DLP is 920.37 mGy-cm. Automated exposure control was utilized for the study. A dose lowering technique was utilized adhering to the principles of ALARA. COMPARISON: CT chest 06/30/23 FINDINGS: There is a stable left subclavian port catheter with tip in the SVC. Heterogeneity of the thyroid gland appears similar to prior. Borderline mediastinal lymph nodes are stable from prior. There is thoracic aortic atherosclerosis without aneurysm. Enlarged main pulmonary arteries consistent with pulmonary arterial hypertension. There is cardiomegaly and coronary artery atherosclerosis. There is no pericardial effusion. Lungs demonstrate emphysematous change. There is no pneumothorax. Small circumferentially loculated right pleural effusion appears decreased from prior. There are persistent opacities within the right lung, predominantly in the lower right upper lobe, right middle lobe, and right lower lobe, partially cleared when compared to prior. Left lung is clear. There is a calcified granuloma in the left upper lobe. There is persistent upper abdominal ascites. 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 Gallbladder is surgically absent. There is no acute fracture or dislocation. Bones are demineralized. There are old right rib fractures. Scattered osteoblastic metastatic disease is again noted. IMPRESSION: 1. Persistent right lung pneumonia appears mildly improved from 06/30/23. 2. Small loculated right pleural effusion, decreased from 06/30/23. Electronically signed by: Vaibhav Oneil M.D. 07/04/23 20:11 PM
[2023-07-04] MEDS: levoFLOXacin 750 MG TAB PO SCH (20:16)
[2023-07-05] MEDS: SENNA 8.6 MG TAB PO STA (08:28)
[2023-07-05] MEDS: POLYETHYLENE (MIRALAX) 17 GM PACK PO SCH (08:28)
--- NOTE | 2023-07-05 18:50 | Hospitalist Progress Note ---
Date of Service July 05, 2023 Assessment & Plan (1) Pneumonia: Plan: Sepsis from pulmonary or urine source present on admission CXR with right pleural effusion and progressive pneumonia of the right lung previous lobectomy of right lung for adenocarcinoma Poor swallowing eval makes at risk for aspiration pneumonia Chest CT revealed tracheobronchial secretions in the right lung base predominant mucous plugging; worsening pneumonia from previous progressive osteoblastic metastasis, concern from adenocarcinoma of ovarian cancer, but did have adenocarcinoma of lung Dx in 12/2012, s/p RLL lobectomy Pt has not improved dramatically, repeat CT lung does show improvement of pneumonia however patient wishes to withdraw aggressive care plan at this time and pursue more hospice care Procalcitonin WNL BioFire negative elevated troponin from demand ischemia not acs Family is on board with hospice transition however we have not proceeded to that given the need for case management and arrangements for outpatient hospice group involvement (2) Acute UTI (urinary tract infection): Plan: Urine culture with Gram negative bacilli serratia transtion to po abtx clinical symptoms are present (3) Ovarian cancer: Plan: Dx in 02/2023 after paracentesis revealing pathology consistent with ovarian cancer Last chemotherapy was on Tuesday06/28/23 Pain at a port required last chemotherapy to be given IV rather than through the port, port eval shows patency Zofran as needed for recent chemotherapy-induced nausea/vomiting; (4) NIXON (acute kidney injury): Plan: resolved with CKD 3, likely from illness and decreased po intake volume resusitation pt with progressive Hypernatremia, will add ivf and follow, her swallowing issue makes po intake a challenge (5) DM type 2 (diabetes mellitus, type 2): Plan: Last A1c was 7.1% on 06/03/2023 Diet controlled with no oral medications Patient requests stopping blood glucose checks (6) History of DVT (deep vein thrombosis): Plan: 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 transtion to [facility] INR elevated at 4.6 on arrival (7) Anemia: Plan: Hgb 8.7 and HCT 27.4, stable and increasing No signs of active bleeding on clinical exam (8) Elevated troponin: Plan: Troponin 31.3-->34.9 on arrival, suspect demand ischemia Clinically, patient denies chest pain or pleuritic CP, but does note SOB at rest Continuous telemetry monitoring (9) Bipolar disorder: Plan: Continue lithium, previous recent levels have been suptherapeutic lithium is 0.5 subtherapeutic Plan DNR/DNI VTE PPx: pt on warfarin Will need to coordinate with case management to procure an outpatient hospice company and transfer patient once family arranges home likely expected in the next few days Admission and Anticipated Discharge Date Admission Date: June 30, 2023 Subjective Patient today disclosed to myself and family that she is done with acute treatment and wishes to start treatment. We discussed the progression of her osteoblastic lesions on CT scans from her metastatic ovarian cancer plus minus previous adenocarcinoma right lung. Family was present for discussions and eventual plan will be home with hospice likely in the next few days once hospice can arrange for changes in the home setting to support her symptom needs. Physical Exam Physical Exam: pt is awake and alert, patient is weak and tired she feels she has no energy not having significant back pain at this time cardiac is regular rate is controlled lungs diminished at the right base abd is soft and non tender Extremities are with edema Results & Data Results & Data Vital Signs (Past 12 Hours) Vital Signs Temp Pulse Pulse Resp BP BP Pulse Ox 07/05/23 16:02 97.9 F 79 20 104/69 97 07/05/23 14:57 97.3 F L 66 18 131/74 97 07/05/23 14:55 85 07/05/23 11:12 98.2 F 77 20 108/51 L 99 07/05/23 08:07 97.7 F 86 17 130/73 93 07/05/23 08:00 07/05/23 07:30 78 07/05/23 07:00 O2 Del Method O2 Del Method O2 Flow Rate O2 Flow Rate 07/05/23 16:02 Nasal Cannula 2 07/05/23 14:57 Nasal Cannula 2 07/05/23 14:55 07/05/23 11:12 Nasal Cannula 2 07/05/23 08:07 Nasal Cannula 2 07/05/23 08:00 Nasal Cannula 07/05/23 07:30 07/05/23 07:00 Nasal Cannula 2 PG Care Time/CCT Total # of Minutes Spent Total Time Spent with Patient: Total time spent is greater than 50% in coordination of care (as documented) at patient's floor/unit and/or counseling patient: Coding Level of Care Code 05359 SUB INP/OBS CARE 3/50MIN Diagnoses Pneumonia J18.9 Acute UTI (urinary tract infection) N39.0 Ovarian cancer C56.9 NIXON (acute kidney injury) N17.9 DM type 2 (diabetes mellitus, type 2) E11.9 History of DVT (deep vein thrombosis) Z86.718 Anemia D64.9 Elevated troponin R79.89 Bipolar disorder F31.9
[2023-07-06 07:09] LABS: Creatinine Clr Calc Pharmacy 43.5 ml/min; Est GFR (African American) 62.2 ml/min; Est GFR (Non-African American) 53.6 ml/min
--- NOTE | 2023-07-06 09:50 | Hospitalist Progress Note ---
Date of Service July 06, 2023 Assessment & Plan (1) Goals of care, counseling/discussion: Plan: Requested a more palliative approach to care with provider yesterday. Palliative care consulted and plan to move for comfort care while still taking lithium, levothyroxine and Eliquis. Appreciate palliative care consult regarding goals of care. This appears reasonable given her progressive metastatic disease. Plan to transfer to med/surg for eventual home with hospice. (2) Pneumonia: Plan: Sepsis from pulmonary or urine source present on admission Pt has not improved dramatically, repeat CT lung does show improvement of pneumonia however patient wishes to withdraw aggressive care plan at this time and pursue more hospice care Antibiotics can be discontinued after todays dose to make a 7 day course of cefepime followed by levaquin Procalcitonin WNL BioFire negative elevated troponin from demand ischemia not acs (3) Acute UTI (urinary tract infection): Plan: Urine culture - Serratia marcescens, antibiotics to be discontinued after today (4) Ovarian cancer: Plan: Dx in 02/2023 after paracentesis revealing pathology consistent with ovarian cancer Last chemotherapy was on Tuesday06/28/23 Pain at a port required last chemotherapy to be given IV rather than through the port, port eval shows patency (5) NIXON (acute kidney injury): Plan: resolved with fluid resuscitation with CKD 3, likely from illness and decreased po intake now transitining to comfort care therefore no further labs to be taken (6) DM type 2 (diabetes mellitus, type 2): Plan: Last A1c was 7.1% on 06/03/2023 Diet controlled with no oral medications Patient requests stopping blood glucose checks (7) History of DVT (deep vein thrombosis): Plan: 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 INR elevated at 4.6 on arrival Continue Eliquis per family wishes (8) Anemia: Plan: Hgb 8.7 and HCT 27.4, stable and increasing No signs of active bleeding on clinical exam (9) Elevated troponin: Plan: Secondary to demand-ischemia. No further workup required (10) Bipolar disorder: Plan: Continue lithium, previous recent levels have been subtherapeutic lithium is 0.5 subtherapeutic Plan VTE Prophyalxis - Eliquis Diet - regular, easy to chew Disposition - transfer to med/surg, plan home on hospice when equipment set up Admission and Anticipated Discharge Date Admission Date: June 30, 2023 Subjective Patient discussed goals of care earlier with palliative care and planning on returning home on hospice. No acute concerns or questions with myself. Physical Exam Constitutional: no acute distress Respiratory: normal respiratory effort Psychiatric: Orientation: alert Results & Data Results & Data Vital Signs (Past 12 Hours) Vital Signs Temp Pulse Pulse Resp BP Pulse Ox O2 Del Method 07/06/23 07:56 36.5 C 84 20 117/62 90 Room Air 07/06/23 07:19 Nasal Cannula 07/06/23 04:06 36.5 C 77 19 117/52 L 95 Nasal Cannula 07/05/23 23:48 36.4 C L 84 16 121/75 98 Nasal Cannula 07/05/23 21:55 92 H O2 Flow Rate 07/06/23 07:56 07/06/23 07:19 2 07/06/23 04:06 2 07/05/23 23:48 2 07/05/23 21:55 PG Care Time/CCT Total # of Minutes Spent Total Time Spent with Patient: Total time spent is greater than 50% in coordination of care (as documented) at patient's floor/unit and/or counseling patient: Coding Level of Care Code 86368 SUB INP/OBS CARE 2/35MIN Diagnoses Goals of care, counseling/discussion Z71.89 Pneumonia J18.9 Acute UTI (urinary tract infection) N39.0 Ovarian cancer C56.9 NIXON (acute kidney injury) N17.9 DM type 2 (diabetes mellitus, type 2) E11.9 History of DVT (deep vein thrombosis) Z86.718 Anemia D64.9 Elevated troponin R79.89 Bipolar disorder F31.9
[2023-07-06 11:08] VITALS: BP 106/41; PULSE 73; RESP 19; TEMP 96.8; O2SAT 92
--- NOTE | 2023-07-06 13:25 | Palliative Care Consultation ---
Date of Consultation July 06, 2023 Assessment & Plan (1) Cancer related pain: (2) Acute generalized abdominal pain: (3) Dyspnea and respiratory abnormalities: (4) Weakness generalized: (5) Anorexia: (6) Advanced care planning/counseling discussion: A 45min face to face ACP meeting was held with pt, her son and dtbari x2 at the bedside. I met with pt and family. They desire dc home with hospice, comfort care, no escalation, no labs, no special diets other than what she desires for comfort/pleasure intake. We reviewed meds and for now she will stay on her eliquis, lithium etc. she was not wanting to stay on eliquis but son felt strongly so we agreed she could take as it long as she is able to/wants to take it. I am writing comfort care orders. Please order transfer to reg room. She would like to go home with hospice as soon as possible. All 3 adult children are in room with her now and would like to speak with care mgt to select hospice agency and determine what DME they want delivered. Clinton RN was notifying case mgt. I am in outpatient clinic tomorrow and will return to the hospital on Tuesday (just an FYI) We discussed the goals of hospice as a patient service and the goals of care; we discussed EOL trajectories and transitions diana the emotional impact of realizing mortality as a concrete reality from prior abstract considerations. Pt was reassured that no matter where they are along this trajectory, they are not alone - their medical team will remain by their side through their journey. Discussed the pros/cons of accepting help when especially weakened and distressed by pain-which would also help provide relief/decrease caregiver burden/strain. I provided education about the hospice benefit: an interdisciplinary program offered by nurses, nurses aides, social workers, chaplains and a medical record librarians teacher for patients with a terminal condition and a life expectancy of less than 6 months. This is covered by Medicare at 100%/no out of pocket expense to patient and all meds/supplies needed by patient for the reason they are on hospice are paid for/covered by hospice. The goal is assure quality of life of the patient in their home setting (home, usp, inpatient hospice setting) by providing symptoms management, psychosocial and spiritual support. However, they cannot offer 24 hours care and if the family is unable to provide that care, they will have to consider personal care with out of pocket cost vs. usp placement. We discussed the goals of hospice as a patient service and the goals of care; we discussed EOL trajectories and transitions diana the emotional impact of realizing mortality as a concrete reality from prior abstract considerations. Pt was reassured that no matter where they are along this trajectory, they are not alone - their medical team will remain by their side through their journey. Discussed the pros/cons of accepting help when especially weakened and distressed by pain-which would also help provide relief/decrease caregiver burden/strain. Discussed changes pt may move through in the dying process including but not limited to sleeping more, disorientation when awake, restlessness, diminished senses/inability to respond to stimulus although ability to be aware of them remains intact longer, changes in body temperatures, skin changes/mottling/cyanosis, respiratory pattern changes, oral secretions. Family verbalized understanding. The goal is to assure a peaceful . (7) Encounter for hospice care discussion: see #6 above (8) Palliative care by specialist: Met with pt/family. Provided overview of Palliative Medicine, a subspecialty that provides specialized medical care for people living with a serious illness by offering a focus on quality of life. Palliative Medicine is often conflated with hospice: I advised patient/family that Palliative and hospice can be partners but we are not the same. It is important to understand the difference so that we may be informed, and not afraid. Palliative Medicine works to improve QOL through reduction of symptom burden/more control over their illness, for both the patient and family. Palliative medicine clinicians are board certified, specially-trained and another member of the patient's medical care team. We often provide an extra layer of support because our care is based on the needs of the patient, not the prognosis; as such, it's appropriate at any age/advancing stage of a serious illness and can be provided along with curative treatment. Palliative Medicine clinicians are also trained in advanced communication methodologies, to facilitate complex discussions about advanced illness planning, which are needed to help assure that the treatment choices match the patient's goals, aka delivering Goal Concordant care. Finally, we discussed that hospice is a visiting nurse service that focuses on care delivered at the very end of life for patients with terminal illness, with life expectancy less than 6 month. Plan * GOVERNMENT CONTRACTS MANAGER, orders written * Pt and family desire dc home with hospice. Nursing has notified case mgt * Pain mgt orders written. Diet liberalized. * I updated nursing, primary team, oncology Thank you for allowing us to participate in the ongoing care of this patient. Please don't hesitate to call or page with any additional concerns. Dr. Daisy Romero [facility] Director, Palliative Care History of Present Illness Reason for Consultation: "transition to hospice, goals of care" Requesting Physician: Panda Blum Attending Physician: Pako Blum MD History of Present Illness Per admitting note:"Serenity is an 83-year-old female with PMH of non-small cell lung cancer, ovarian cancer, COPD, T2DM, atrial flutter, bipolar disorder, DVT, PE, pulmonary emphysema, hypothyroidism, HTN, and recurrent UTIs. She presented via EMS for complaints of left hip pain, productive cough, burning with urination, and SOB at rest that developed the night of 06/28. Patient's daughter patient is currently in town from [place] as the patient is at undergoing chemotherapy for ovarian cancer; last treatment on Tuesday 06/27. Patient's daughter is present at the bedside and provides additional history. Daughter reports that she was fine yesterday when she went to bed around 1999 that there was no change in mental status. She does note that the patient developed a productive cough last night. Upon waking, daughter reports that the patient was calling out for her, and noted that she been coughing all night. Patient is unsure if she fell, however daughter reports that she did slide off her scooter onto her hip on Tuesday night 06/27. Patient was moving around fine yesterday; ambulates with a walker/cane at baseline. Patient also notes that she has been having a very painful port in her left upper chest, which developed on Monday 06/26. Patient spoke with Dr. Spears at the [facility], and her chemo was given IV rather than through the port on Tuesday. No supplemental oxygen at home. No sick contacts. Patient reports that she took her evening dose of medications; in regard to warfarin, she had an elevated INR level at 4.2 on Monday 06/26 and was instructed to do the following (no warfarin on Tuesday, 3 mg on Tuesday, and then 4 mg Tuesday through Tuesday). Patient lives alone, but has help from her daughters. Patient reports she has not been taking Lasix as she has been wetting the bed. She denies recent tobacco or alcohol use; she is a former smoker but quit 20 years ago. Vital stable at time of admission." She is followed by Dr Spears in [facility] Pt has not improved dramatically, repeat CT lung does show improvement of pneumonia however patient wishes to withdraw aggressive care plan at this time and pursue more hospice care Serenity reports signi cancer pain diana in abdomen and lower into pelvis, occ to back She has chest pain with coughing, this is a loose bronchitic cough with malloy to yellow sputum her appetite is poor she is always cold she is very weak and needs helps with all ADLs Serenity lives in a private ranch home with 2 steps to entry She has a 4 yo tuxedo cat named Macho. Her daughter shares that Serenity got Macho after seeing a field mouse in her home. He is now her favorite trademark attorney. Serenity has 3 children, 2 dtrs and 1 son. one son and dtr live locally, the other dtr is here from [place]. They are committed to caring for pt at home with hospice Allergies Allergy/AdvReac Type Severity Reaction Status Date / Time Penicillins Allergy Severe Throat Verified 06/03/23 08:56 swelling Sulfa (Sulfonamide Allergy Severe "Pain in Verified 06/03/23 08:56 Antibiotics) my heart" latex Allergy Itching Verified 06/03/23 08:56 aspirin AdvReac Unknown Verified 06/03/23 08:56 benzalkonium AdvReac Unknown Verified 06/03/23 08:56 Cephalosporins AdvReac Unknown Verified 06/03/23 08:56 oxycodone AdvReac Unresponsiv Verified 06/03/23 08:56 e sulfacetamide AdvReac Unknown Verified 06/03/23 08:56 Home Medications Medication Instructions Recorded Confirmed Type acetaminophen 500 mg capsule 1,000 mg PO Q6H PRN Pain 05/12/19 06/30/23 History (Tylophen) cholecalciferol (vitamin D3) 50 2,000 unit PO HS 05/12/19 06/30/23 History mcg (2,000 unit) capsule betamethasone dipropionate 0.05 % 1 applic topical BID PRN skin 01/28/21 06/30/23 Rx topical cream irritation #15 grams albuterol sulfate 90 mcg/actuation 1 inh inhalation QID PRN shortness 08/17/22 06/30/23 Rx aerosol inhaler of breath or wheezing #8.5 grams donepezil 5 mg tablet (Aricept) 5 mg PO HS #90 tabs 02/22/23 06/30/23 Rx warfarin 4 mg tablet 4 mg PO DIRECTED #90 tabs 02/22/23 06/30/23 Rx furosemide 20 mg tablet 0 mg PO UD 05/09/23 06/30/23 History levothyroxine 88 mcg tablet 88 mcg PO HS 05/09/23 06/30/23 History (Synthroid) lithium carbonate 300 mg 300 mg PO HS 05/09/23 06/30/23 History tablet,extended release methenamine hippurate 1 gram 1 g PO QPM #30 tabs 06/03/23 06/30/23 Rx tablet (Hiprex) warfarin 3 mg tablet 3 mg PO DAILY #30 tabs 06/07/23 06/30/23 Rx warfarin 5 mg tablet 5 mg PO .COMPLEX #90 tabs 06/07/23 06/30/23 Rx olanzapine 2.5 mg tablet 2.5 mg PO HS 06/30/23 06/30/23 History prochlorperazine maleate 10 mg 10 mg PO Q6H PRN Nausea And 06/30/23 06/30/23 History tablet Vomiting Patient History Medical History (Updated 07/06/23 @ 15:26 by Daisy Romero, BUD) Palliative care by specialist Encounter for hospice care discussion Advanced care planning/counseling discussion Anorexia Weakness generalized Dyspnea and respiratory abnormalities Acute generalized abdominal pain Cancer related pain Anemia Leg edema Cellulitis of right lower extremity Abdominal pain Atrial flutter, paroxysmal Macular degeneration History of COVID-19 Fall 2019- hospitalized at [facility], [place], SOB Sleep apnea Per records Leg swelling Hypotension Skin lesion ear skin lesion removed at dermatology Valvular heart disease Echo 02/2023: Moderate to severe TR Obesity Hypertension Hyperlipidemia Non-ST elevation myocardial infarction (NSTEMI) of indeterminate age Noted per remote records years ago History of pulmonary embolism Pulmonary hypertension Echo: Severe pulmonary HTN, estimated RVSP 95-100mmhg Recurrent UTI (urinary tract infection) No current issues Chronic kidney disease Stage III History of DVT (deep vein thrombosis) 40+ yrs ago after childbirth, 2nd time 2008 following bedrest Asthma C. difficile colitis hx, no current/recent issues Atrial flutter s/p cardioversion Non-small cell carcinoma of lung 2013, surgery [facility], "no chemo required" Bipolar disorder Surgical History Port-A-Cath in place (05/13/23) Insertion of Access Port with Fluoroscopy, Left Subclavian(Left) - Emily Pollock DO Oncologist Dr. Spears History of total right knee replacement Right TKA (05/02/19): SAB at L3-4 + regional at [facility], [place] S/P lobectomy of lung RLL @ [facility] 2013, tumor excision History of left knee replacement 2018 [facility] [place] History of partial hysterectomy History of phacoemulsification of cataract of both eyes with intraocular lens implantation H/O varicose vein stripping B/L LE extremities Hx of cholecystectomy History of cardioversion ~2009 Family History Sister Breast cancer Colorectal cancer Mother Colorectal cancer Diabetes Father Lung cancer Brother Prostate cancer Denies family history of Ovarian cancer Myocardial infarction Social History Smoking Status: Former smoker Tobacco Type: Cigarettes packs per day: 1; Cigarettes Per Day: 10; Second Hand Exposure: Yes (hx smoked); Do You Dip or Chew Tobacco: No; Hx Alcohol Use: No Hx Substance Use: No Preferred Language: Ecuadorean Communication Ability: Effective Visual Impairment: Limited Wood Stainer Required: No Beliefs That Will Affect Care: None marital status: / Current Living Situation: Alone 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 How many Children do You have: 3 Other Information That Helps Us Care for You: No Feels Safe at Home: Yes Safety Concerns: Feels Safe At This Time Childhood Exposure to Second-Hand Smoke: Yes Diet: regular during the past year weight has: remained stable Dental Care, Regularly: Yes Physical Activity Frequency: Does not Exercise Seatbelt Use: always Sunscreen Use: No Assistive Devices: Glasses, Walker and Wheelchair Review of Systems Review of Systems: All systems reviewed & are unremarkable except as noted in Subjective Physical Exam Constitutional: + ill appearing, + frail appearing, coop erative and + in distress Eyes: PERRL, conjunctivae normal, anicteric sclerae ENMT: Ears: + hearing impairment Nose: + dry nasal mucous membranes Mouth: + poor dentition Neck: trachea midline, no thyromegaly normal visual inspection Thyroid: normal thyroid Respiratory: + uses accessory muscles, + cough and + pursed lip breathing rhonchi bilat, no wheezing. bronchitic cough Cardiovascular: s1s2 Gastrointestinal (Abdomen): mild distension TTP throughout, lower abd to suprapubic tenderness Musculoskeletal: gen weakness Skin: pale, dry, cool to touch. BLE edema +1 Neurologic: PERRL, EOMI, accommodation nl, no face palsy, no dysarthria Psychiatric: A+Ox3, euthymic affect Results & Data Vital Signs (Past 12 Hours) Vital Signs Temp Pulse Pulse Resp BP Pulse Ox O2 Del Method 07/06/23 11:07 36.0 C L 73 19 106/41 L 92 Room Air 07/06/23 07:56 36.5 C 84 20 117/62 90 Room Air 07/06/23 07:19 Nasal Cannula 07/06/23 06:00 75 07/06/23 04:06 36.5 C 77 19 117/52 L 95 Nasal Cannula O2 Flow Rate 07/06/23 11:07 07/06/23 07:56 07/06/23 07:19 2 07/06/23 06:00 07/06/23 04:06 2 Laboratory Results data reviewed Diagnostic Findings data reviewed PG Care Time/CCT Total # of Minutes Spent Total Time Spent with Patient: Total time spent is greater than 50% in coordination of care (as documented) at patient's floor/unit and/or counseling patient: I spent 95 minutes overall addressing this case: 15 min in medical data review/discussion with referring provider(s) and/or preparation for the visit 15 min in direct interaction with the patient/exam 45 min in Advance Care Planning/Goals of Care discussions as detailed above in note (must be >16min) 10 min in subsequent review and synthesis of assessment and plan 10 min communicating with other providers regarding the patient's case: onc, primary, nursing Prolonged Care Time Prolonged Care Time: No Advanced Care Planning 24534 Advanced Care Planning 30 Min 47718 Advanced Care Planning Additional 30 [place] [address] IN/OBS CONSULT LVL 5,80M Patient Type New History Comprehensive Exam Comprehensive Medical Decision Making High Complexity Diagnoses Cancer related pain G89.3 Acute generalized abdominal pain R10.84 Dyspnea and respiratory abnormalities R06.00; R06.89 Weakness generalized R53.1 Anorexia R63.0 Advanced care planning/counseling discussion Z71.89 Encounter for hospice care discussion Z71.89 Palliative care by specialist Z51.5 Additional Codes Advanced Care Planning - 99623 Advanced Care Planning 30 Min: 11687 Advanced Care Planning 30 Min ([id number]) Advanced Care Planning - 50491 Advanced Care Planning Additional 30 Min: 51294 Advanced Care Planning Additional 30 Min ([id number])
[2023-07-06] MEDS ORDERED: LORazepam 0.5 MG TAB PO PRN (15:14)
[2023-07-06] MEDS ORDERED: LORazepam 0.5 MG in SYRINGE 0.25 ML IV PRN (15:14)
[2023-07-06] MEDS ORDERED: HYDROmorphone INJ 0.5 MG/0.5 ML SYR IV PRN (15:14)
[2023-07-06] MEDS ORDERED: haloperidoL 1 MG TAB PO PRN (15:14)
[2023-07-06] MEDS ORDERED: HYDROmorphone HCL 4 MG TAB PO PRN (15:20)
--- NOTE | 2023-07-07 12:50 | Discharge Summary ---
Date of Service July 07, 2023 Admission HPI Per Admitting Provider Serenity is an 83-year-old female with PMH of non-small cell lung cancer, ovarian cancer, COPD, T2DM, atrial flutter, bipolar disorder, DVT, PE, pulmonary emphysema, hypothyroidism, HTN, and recurrent UTIs. She presented via EMS for complaints of left hip pain, productive cough, burning with urination, and SOB at rest that developed the night of 06/28. Patient's daughter patient is currently in town from [place] as the patient is at undergoing chemotherapy for ovarian cancer; last treatment on Tuesday 06/27. Patient's daughter is present at the bedside and provides additional history. Daughter reports that she was fine yesterday when she went to bed around 1999 that there was no change in mental status. She does note that the patient developed a productive cough last night. Upon waking, daughter reports that the patient was calling out for her, and noted that she been coughing all night. Patient is unsure if she fell, however daughter reports that she did slide off her scooter onto her hip on Tuesday night 06/27. Patient was moving around fine yesterday; ambulates with a walker/cane at baseline. Patient also notes that she has been having a very painful port in her left upper chest, which developed on Monday 06/26. Patient spoke with Dr. Spears at the [facility], and her chemo was given IV rather than through the port on Tuesday. No supplemental oxygen at home. No sick contacts. Patient reports that she took her evening dose of medications; in regard to warfarin, she had an elevated INR level at 4.2 on Monday 06/26 and was instructed to do the following (no warfarin on Tuesday, 3 mg on Tuesday, and then 4 mg Tuesday through Tuesday). Patient lives alone, but has help from her daughters. Patient reports she has not been taking Lasix as she has been wetting the bed. She denies recent tobacco or alcohol use; she is a former smoker but quit 20 years ago. Vital stable at time of admission. ED course: Cefepime 2000 mg IV (note: ED spoke with the pharmacy regarding the listed cephalosporin allergy and it was reported that she had this in the past and tolerated it well) Acetaminophen 1000 mg IV NSS 1000 mg IV ROS: Patient endorses body aches, SOB w/ exertion and rest, right arm pain, nausea/vomiting (which patient thinks is secondary to cancer treatment), burning with urination, incontinence, and knee/leg weakness. Patient denies fever, chills, night-sweats, CRANDALL, dizzyness/lightheadedness, chest pain, left shoulder/arm/jaw pain, stomach pain, diarrhea, constipation, blood in urinary/stool, or pain/numbness/tingling in the LEs. Discharge Data Allergies Allergy/AdvReac Type Severity Reaction Status Date / Time Penicillins Allergy Severe Throat Verified 06/03/23 08:56 swelling Sulfa (Sulfonamide Allergy Severe "Pain in Verified 06/03/23 08:56 Antibiotics) my heart" latex Allergy Itching Verified 06/03/23 08:56 aspirin AdvReac Unknown Verified 06/03/23 08:56 benzalkonium AdvReac Unknown Verified 06/03/23 08:56 Cephalosporins AdvReac Unknown Verified 06/03/23 08:56 oxycodone AdvReac Unresponsiv Verified 06/03/23 08:56 e sulfacetamide AdvReac Unknown Verified 06/03/23 08:56 Consultations 06/30/23 10:11 ED Decision to Admit Stat 06/30/23 15:16 Consult Oncology Routine 07/06/23 08:27 Consult Palliative Care Routine Ordered Studies 06/30/23 08:57 CT chest diagnostic wo con Stat 06/30/23 11:05 FL a-port check Stat 07/01/23 13:45 FL video swallow Routine 07/04/23 18:52 CT chest diagnostic wo con Routine Hospital Course (1) Goals of care, counseling/discussion: Requested a more palliative approach to care with provider yesterday. Palliative care consulted and plan to move for comfort care while still taking lithium, levothyroxine and Eliquis. Appreciate palliative care consult regarding goals of care. This appears reasonable given her progressive metastatic disease. Plan to transfer to med/surg for eventual home with hospice. (2) Pneumonia: Sepsis from pulmonary or urine source present on admission Pt has not improved dramatically, repeat CT lung does show improvement of pneumonia however patient wishes to withdraw aggressive care plan at this time and pursue more hospice care Antibiotics can be discontinued after todays dose to make a 7 day course of cefepime followed by levaquin Procalcitonin WNL [employer] negative elevated troponin from demand ischemia not acs (3) Acute UTI (urinary tract infection): Urine culture - Serratia marcescens, antibiotics to be discontinued after today (4) Ovarian cancer: Dx in 02/2023 after paracentesis revealing pathology consistent with ovarian cancer Last chemotherapy was on Tuesday06/28/23 Pain at a port required last chemotherapy to be given IV rather than through the port, port eval shows patency (5) NIXON (acute kidney injury): resolved with fluid resuscitation with CKD 3, likely from illness and decreased po intake now transitining to comfort care therefore no further labs to be taken (6) DM type 2 (diabetes mellitus, type 2): Last A1c was 7.1% on 06/03/2023 Diet controlled with no oral medications Patient requests stopping blood glucose checks (7) History of DVT (deep vein thrombosis): 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 INR elevated at 4.6 on arrival Continue Eliquis per family wishes (8) Anemia: Hgb 8.7 and HCT 27.4, stable and increasing No signs of active bleeding on clinical exam (9) Elevated troponin: Secondary to demand-ischemia. No further workup required (10) Bipolar disorder: Continue lithium, previous recent levels have been subtherapeutic lithium is 0.5 subtherapeutic Plan VTE Prophyalxis - Eliquis Diet - regular, easy to chew Disposition - transfer to med/surg, plan home on hospice when equipment set up Discharge Plan Discharge Items Patient Disposition: Hospice - Home Reason For Visit: PNA,UTI,SEPSIS Discharge Diagnosis: Pneumonia UTI Sepsis Activity: Resume your previous activity Non-emergency contact: Primary Care Provider Call non-emergency contact if: you have any medication questions and your symptoms worsen Follow-up/Referrals: Kristel Morfin MD [Primary Care Provider] - Diet: Regular Diet Texture: Easy to Chew Addtl Attending Provider Instructions: You were admitted to [facility] from June 29 - 2023 due to shortness of breath and painful urination. You were diagnosed with sepsis, pneumonia and urine tract infection treated with antibiotics. You finished these antibiotics during your inpatient stay and no longer require this on discharge. Warfarin was switched to Eliquis to avoid ongoing blood tests and due to uncontrolled INR. You no longer require Lasix as you remain dehydrated therefore this has been discontinued. Olanzapine was only during chemotherapy therefore this has been discontinued. Donepezil is a half-way medication therefore this was also recommended to be discontinued by palliative care. You elected to be discharged home on hospice care which has been arranged. Please discuss ongoing prescriptions with your hospice agency. Pending Studies at Discharge: No Stand-Alone Forms: My [facility] Medications and DC Order Prescriptions: New Eliquis 5 mg Tablet 5 mg PO BID Qty: 60 0RF Continued methenamine hippurate [Hiprex] 1 gram tablet 1 g PO QPM Qty: 30 1RF Hold Instructions: Daughter called urology and was told to hold while on atb Rx Instructions: Take 1 tablet daily in the evening. albuterol sulfate 90 mcg/actuation HFA aerosol inhaler 1 inh inhalation QID PRN (Reason: shortness of breath or wheezing) Qty: 8.5 4RF betamethasone dipropionate 0.05 % cream 1 applic topical BID PRN (Reason: skin irritation) Qty: 15 3RF cholecalciferol (vitamin D3) 50 mcg (2,000 unit) capsule 2,000 unit PO HS acetaminophen [Tylophen] 500 mg capsule 1,000 mg PO Q6H PRN (Reason: Pain) lithium carbonate 300 mg tablet extended release 300 mg PO HS levothyroxine [Synthroid] 88 mcg tablet 88 mcg PO HS prochlorperazine maleate 10 mg tablet 10 mg PO Q6H PRN (Reason: Nausea And Vomiting) Discontinued warfarin 5 mg tablet 5 mg PO .COMPLEX Qty: 90 3RF Protocol: Dose Management Condition: Tuesday (Week One) Dose/Route: 4 mg Instruction: 1 x 4 mg tablet Condition: Tuesday Dose/Route: Hold Instruction: No doses Condition: Tuesday Dose/Route: 3 mg Instruction: 1 x 3 mg tablet Condition: Tuesday Dose/Route: 4 mg Instruction: 1 x 4 mg tablet Condition: Dose/Route: 4 mg Instruction: 1 x 4 mg tablet Condition: Tuesday Dose/Route: 4 mg Instruction: 1 x 4 mg tablet Condition: Tuesday Dose/Route: 4 mg Instruction: 1 x 4 mg tablet Condition: Tuesday (Week Two) Dose/Route: 4 mg Instruction: 1 x 4 mg tablet Condition: Tuesday Dose/Route: 0 mg Instruction: 0 tablets Condition: Tuesday Dose/Route: 0 mg Instruction: 0 tablets Condition: Tuesday Dose/Route: 0 mg Instruction: 0 tablets Condition: Dose/Route: 0 mg Instruction: 0 tablets Condition: Tuesday Dose/Route: 0 mg Instruction: 0 tablets Condition: Tuesday Dose/Route: 0 mg Instruction: 0 tablets Protocol Text: Adjustment Start Date: Tuesday06/27/23 INR Value: 4.2 INR Date: 06/27/23 Recheck Date: 07/04/23 Additional Instructions: Patient is to hold 06/27/23, 3mg 06/28/23, and 4mg Tue//Tue/Sat/Sun . Recheck on Tuesday INR and will update dose after per MD Rx Instructions: 5mg daily as instructed warfarin 3 mg tablet 3 mg PO DAILY Qty: 30 1RF Hold Instructions: Resume on 05/18/23. Protocol: Dose Management Condition: Tuesday (Week One) Dose/Route: 4 mg Instruction: 1 x 4 mg tablet Condition: Tuesday Dose/Route: Hold Instruction: No doses Condition: Tuesday Dose/Route: 3 mg Instruction: 1 x 3 mg tablet Condition: Tuesday Dose/Route: 4 mg Instruction: 1 x 4 mg tablet Condition: Dose/Route: 4 mg Instruction: 1 x 4 mg tablet Condition: Tuesday Dose/Route: 4 mg Instruction: 1 x 4 mg tablet Condition: Tuesday Dose/Route: 4 mg Instruction: 1 x 4 mg tablet Condition: Tuesday (Week Two) Dose/Route: 4 mg Instruction: 1 x 4 mg tablet Condition: Tuesday Dose/Route: 0 mg Instruction: 0 tablets Condition: Tuesday Dose/Route: 0 mg Instruction: 0 tablets Condition: Tuesday Dose/Route: 0 mg Instruction: 0 tablets Condition: Dose/Route: 0 mg Instruction: 0 tablets Condition: Tuesday Dose/Route: 0 mg Instruction: 0 tablets Condition: Tuesday Dose/Route: 0 mg Instruction: 0 tablets Protocol Text: Adjustment Start Date: Tuesday06/27/23 INR Value: 4.2 INR Date: 06/27/23 Recheck Date: 07/04/23 Additional Instructions: Patient is to hold 06/27/23, 3mg 06/28/23, and 4mg Tue//Tue/Sat/Sun . Recheck on Tuesday INR and will update dose after per MD Patient Comments: per daughter, they're having troubles with her levels. Was off warfarin for most of April. Rx Instructions: Tue; Tue; Tue; Tue donepezil [Aricept] 5 mg tablet 5 mg PO HS Qty: 90 3RF warfarin 4 mg tablet 4 mg PO DIRECTED Qty: 90 1RF Hold Instructions: Resume on 05/18/23. Protocol: Dose Management Condition: Tuesday (Week One) Dose/Route: 4 mg Instruction: 1 x 4 mg tablet Condition: Tuesday Dose/Route: Hold Instruction: No doses Condition: Tuesday Dose/Route: 3 mg Instruction: 1 x 3 mg tablet Condition: Tuesday Dose/Route: 4 mg Instruction: 1 x 4 mg tablet Condition: Dose/Route: 4 mg Instruction: 1 x 4 mg tablet Condition: Tuesday Dose/Route: 4 mg Instruction: 1 x 4 mg tablet Condition: Tuesday Dose/Route: 4 mg Instruction: 1 x 4 mg tablet Condition: Tuesday (Week Two) Dose/Route: 4 mg Instruction: 1 x 4 mg tablet Condition: Tuesday Dose/Route: 0 mg Instruction: 0 tablets Condition: Tuesday Dose/Route: 0 mg Instruction: 0 tablets Condition: Tuesday Dose/Route: 0 mg Instruction: 0 tablets Condition: Dose/Route: 0 mg Instruction: 0 tablets Condition: Tuesday Dose/Route: 0 mg Instruction: 0 tablets Condition: Tuesday Dose/Route: 0 mg Instruction: 0 tablets Protocol Text: Adjustment Start Date: Tuesday06/27/23 INR Value: 4.2 INR Date: 06/27/23 Recheck Date: 07/04/23 Additional Instructions: Patient is to hold 06/27/23, 3mg 06/28/23, and 4mg Tue //Tue/Sat/Sun . Recheck on Tuesday INR and will update dose after per MD Rx Instructions: Tue;Tue; Tue furosemide 20 mg tablet 0 mg PO UD Patient Comments: tuesday and at night Rx Instructions: per daughter, pt hasn't used medication in the last couple weeks. olanzapine 2.5 mg tablet 2.5 mg PO HS Rx Instructions: take for 4 days on day 1 of chemo Discharge Orders: Discharge Order (Routine); Ordered 07/07/23 Ordered By: Pako Blum Admission Data Admit Date/Time: 06/30/23 11:05 Attending Provider: Pako Blum Admit Provider: Esteban Partida Primary Care Provider: Kristel Morfin V. Other Providers: [facility]; [place]; Esteban Partida; Daisy Romero Coding Diagnoses Goals of care, counseling/discussion Z71.89 Pneumonia J18.9 Acute UTI (urinary tract infection) N39.0 Ovarian cancer C56.9 NIXON (acute kidney injury) N17.9 DM type 2 (diabetes mellitus, type 2) E11.9 History of DVT (deep vein thrombosis) Z86.718 Anemia D64.9 Elevated troponin R79.89 Bipolar disorder F31.9
== END 2023-07-07 16:18 | disposition hospice, home (50) | DRG 871 ==
LOC: ED 06:45 → 2E 11:05 → SUATTDRO 11:05 → 2E 13:50 → 3N 07-06 17:56
DX: E11.9 Type 2 diabetes mellitus without complications; Z85.118 Personal history of other malignant neoplasm of bronchus and lung; Z88.2 Allergy status to sulfonamides; Z66 Do not resuscitate; R32 Unspecified urinary incontinence; N18.30 Chronic kidney disease, stage 3 unspecified; Z87.440 Personal history of urinary (tract) infections; F31.9 Bipolar disorder, unspecified; C56.9 Malignant neoplasm of unspecified ovary; J15.69 Pneumonia due to other Gram-negative bacteria; Z88.6 Allergy status to analgesic agent; Z88.0 Allergy status to penicillin; Z87.891 Personal history of nicotine dependence; B96.89 Other specified bacterial agents as the cause of diseases classified elsewhere; G89.3 Neoplasm related pain (acute) (chronic); A41.9 Sepsis, unspecified organism; R00.0 Tachycardia, unspecified; Z79.890 Hormone replacement therapy; Z95.828 Presence of other vascular implants and grafts; I24.89 Other forms of acute ischemic heart disease; Z51.5 Encounter for palliative care; I12.9 Hypertensive chronic kidney disease with stage 1 through stage 4 chronic kidney disease, or unspecified chronic kidney disease; J44.9 Chronic obstructive pulmonary disease, unspecified; D64.9 Anemia, unspecified; Z86.718 Personal history of other venous thrombosis and embolism; Z96.653 Presence of artificial knee joint, bilateral; E03.9 Hypothyroidism, unspecified; N39.0 Urinary tract infection, site not specified; N17.9 Acute kidney failure, unspecified; Z86.16 Personal history of COVID-19; Z88.5 Allergy status to narcotic agent